=== PATIENT | male | born 1955 | race Caucasian/White ===

== ENCOUNTER 2018-06-29 00:56 | Inpatient (IN) ==
[2018-06-29 01:13] LABS: Basophils % 0.1 % (0.1-2.0); Eosinophils # 0.1 K/mm3 (0.0-0.4); Eosinophils % 0.9 % (0.1-12.0); Hematocrit 40.2 % (42.0-52.0); Hemoglobin 13.1 g/dL (14.1-18.0); Lymphocytes # 0.9 K/mm3 (0.7-4.5); Lymphocytes % 6.7 % (10-50); Mean Corpuscular HGB Conc 32.5 g/dL (31.8-35.4); Mean Corpuscular Hemoglobin 29.5 pg (27.0-31.2); Mean Corpuscular Volume 90.8 fl (80-94); Mean Platelet Volume 7.2 fl (7.4-10.4); Monocytes # 0.8 K/mm3 (0.1-1.0); Monocytes % 5.9 % (1.7-9.3); Neutrophils # 12.2 K/mm3 (1.8-7.8); Neutrophils % 86.4 % (37.0-80.0); Platelet Count 211 K/mm3 (142-424); Red Blood Count 4.43 M/mm3 (4.60-6.20); Red Cell Distribution Width 14.4 % (11.5-17.5); White Blood Count 14.1 K/mm3 (4.8-10.8)
[2018-06-29 01:28] LABS: Microscopic, Urine URINE MICROSCOPIC (MICROSCOPIC)
[2018-06-29 01:28] LABS: Albumin Level 2.9 gm/dL (3.4-5.0); Albumin/Globulin Ratio 0.7 (1.1-1.8); Anion Gap 12.4 mEq/L (5-15); Bilirubin,Total 0.5 mg/dL (0.2-1.0); Calcium 8.8 mg/dL (8.5-10.1); Potassium 3.4 mmoL/L (3.5-5.1); Total Protein,Serum 6.9 gm/dL (6.4-8.2)
[2018-06-29 01:29] LABS: Appearance,Urine CLEAR (Clear); Bilirubin,Urine Negative (Negative); Blood, Urine Negative (Negative); Color,Urine YELLOW (Yellow); Glucose,Urine (UA) Negative (Negative); Ketones,Urine TRACE (Negative); Leukocyte Esterase,Urine Negative (Negative); Protein,Urine 1+ (Negative); Specific Gravity, Urine 1.015 (1.005-1.030)
[2018-06-29 01:48] LABS: Bacteria,Urine 1+ /lpf; Mucus,Urine 1+ /lpf
[2018-06-29 02:21] LABS: Lymphocytes % 8 % (10-50); Monocytes % 2 % (2-9); Neutrophils % 89 % (42-76); Stomatocytes 1+; Total Cells Counted 100
--- NOTE | 2018-06-29 03:11 | Emergency Department Note ---
ED Disposition Clinical Impression: Low body mass index (BMI) Community acquired pneumonia Qualifiers: Laterality: unspecified laterality Qualified Code(s): J18.9 - Pneumonia, unspecified organism Schizophrenia Qualifiers: Schizophrenia type: unspecified Qualified Code(s): F20.9 - Schizophrenia, unspecified Disposition: Admitted as Observation Condition on Discharge: Good Referrals: Provider,Referral, [Primary Care Provider] - - Critical Care Critical Care Time: No Attestation: On 06/29/18, the high probability of a clinically significant, sudden or life threatening deterioration of the following system(s) required my full and direct attention, intervention and personal management. The time I documented below is in addition to time spent performing reported procedures but includes the following listed in this critical care notation. Medical Decision Making - Medical Records Medical records reviewed: Yes: I reviewed the patient's medical records. - [place] Inquiry Pt receiving controlled substance: No Vital Signs: 06/29/18 00:56 06/29/18 01:26 06/29/18 01:53 Temperature 103.4 F H 102.4 F H Temperature Source Rectal Rectal Pulse Rate Pulse Rate [Right Brachial] 119 H 119 H 113 H Respiratory Rate 18 17 Blood Pressure [Right Arm] 131/58 L 129/78 129/72 Blood Pressure Mean [Right Arm] 82 95 91 02 Sat by Pulse Oximetry 92 L 92 L 98 Oxygen Delivery Method Room Air Room Air Room Air 06/29/18 02:00 06/29/18 02:02 06/29/18 02:30 Temperature 102.7 F H Temperature Source Rectal Pulse Rate 112 H Pulse Rate [Right Brachial] 109 H 109 H Respiratory Rate 18 Blood Pressure [Right Arm] 122/69 122/85 Blood Pressure Mean [Right Arm] 86 97 02 Sat by Pulse Oximetry 98 90 L Oxygen Delivery Method Room Air Room Air - Lab Data Lab results reviewed: Yes: I reviewed the patient's lab results. Lab Results 06/29/18 01:05: WBC 14.1 H, RBC 4.43 L, Hgb 13.1 L, Hct 40.2 L, MCV 90.8, MCH 29.5, MCHC 32.5, RDW 14.4, Plt Count 211, MPV 7.2 L, Neut % (Auto) 86.4 H, Lymph % (Auto) 6.7 L, [place] % (Auto) 5.9, Eos % (Auto) 0.9, Baso % (Auto) 0.1, Neut # (Auto) 12.2 H, Lymph # (Auto) 0.9, [place] # (Auto) 0.8, Eos # (Auto) 0.1, Baso # (Auto) 0.0, Total Counted 100, Neutrophils % (Manual) 89 H, Lymphocytes % (Manual) 8 L, Monocytes % (Manual) 2, Basophils % (Manual) 1.0, Platelet Estimate Normal, Stomatocytes 1+ 06/29/18 01:05: Sodium 133 L, Potassium 3.4 L, Chloride 98, Carbon Dioxide 26, Anion Gap 12.4, BUN 12, Creatinine 1.30, Estimated Creat Clear 49, Estimated GFR 56 L, Est GFR ( Amer) 67, Glucose 158 H, Calcium 8.8, Total Bilirubin 0.5, AST 11 L, ALT 29, Alkaline Phosphatase 72, Total Protein 6.9, Albumin 2.9 L , Globulin 4.0 H, Albumin/Globulin Ratio 0.7 L 06/29/18 01:05: Lactate 1.1 06/29/18 01:05: Influenza Type A Ag Negative, Influenza Type B Ag Negative 06/29/18 01:17: Urine Color Yellow, Urine Appearance Clear, Urine pH 7.0, Ur Specific [place] 1.015, Urine Protein 1+, Urine Glucose (UA) Negative, Urine Ketones Trace, Urine Blood Negative, Urine Nitrate Negative, Urine Bilirubin Negative, Urine Urobilinogen 4.0, Ur Leukocyte Esterase Negative, Urine RBC 3-5, Urine WBC 3-5, Ur Squamous Epith Cells 3-5, Urine Bacteria 1+, Urine Mucus 1+ Result diagrams: 06/29/18 01:05 06/29/18 01:05 Orders (Tests/Meds): ED MEDICATIONS Generic Name Dose Route Start Last Admin Trade Name Freq PRN Reason Stop Dose Admin Sodium Chloride 1,000 mls @ 999 mls/hr 06/29/18 01:00 06/29/18 01:02 Sod Chlor 0.9% 1000ml Bag IV 06/29/18 02:00 999 mls/hr .Q1H1M HUNTER Administration Ceftriaxone Sodium 1 gm/ 50 mls @ 100 mls/hr 06/29/18 02:45 06/29/18 02:57 Sodium Chloride IV 07/13/18 02:44 100 mls/hr Q24H HUNTER Administration Protocol Azithromycin 500 mg/ Sodium 250 mls @ 250 mls/hr 06/29/18 02:45 06/29/18 02:56 Chloride IV 07/13/18 02:44 250 mls/hr Q24H HUNTER Administration Protocol Sodium Chloride 10 ml 06/29/18 00:57 Saline Flush 10ml Syringe IV 07/29/18 00:56 NEEDED PRN Maintain IV Site Sodium Chloride 3 ml 06/29/18 01:31 Sodium Chloride 3% 15ml [facility] 07/29/18 01:30 ONCE PRN INDUCE [employer] Discontinued Medications Generic Name Dose Route Start Last Admin Trade Name Freq PRN Reason Stop Dose Admin Acetaminophen 1,000 mg 06/29/18 00:59 06/29/18 01:02 Tylenol 500mg Tablet PO 06/29/18 01:00 1,000 mg ONCE ONE Administration Albuterol/Ipratropium 3 ml 06/29/18 01:43 06/29/18 01:52 Duoneb 3ml [facility] 06/29/18 01:44 3 ml ONCE ONE Administration Methylprednisolone Sodium Succinate 125 mg 06/29/18 01:01 06/29/18 01:12 Solu-Medrol 125mg/2ml Vial IV 06/29/18 01:02 125 mg ONCE ONE Administration ORDERS Category Date Time Status XR chest portable Stat Exams 06/29/18 01:01 Taken Urinalysis and Microscopic Stat Lab 06/29/18 01:17 Ordered Blood Culture Stat Micro 06/29/18 01:05 Received Sputum Culture & Gram Stain Stat Micro 06/29/18 01:31 Ordered ECG Request by /Nse Stat Y 06/29/18 00:57 Ordered - Radiology Data #1 Image(s): Chest Image Reviewed: Yes I reviewed the patient's radiology image Preliminary Findings: Abnormal (bilat inflitrates ) - ECG Data Tracing #1 Arrhythmias present: sinus tach Ischemic changes: non-specific ST-T wave changes ECG compared to prior tracings: this ECG reveals significant changes Resp/SOB HPI - General Chief Complaint: Shortness of Breath/Dyspnea Stated Complaint: shortness of breath Time Seen by Provider: 06/29/18 01:15 Mode of Arrival: EMS Source of Information: Patient, EMS, Medical Record Limitations: Altered Mental Status Description of Symptoms (Recalled from ER Triage Doc. by RN): Sent over from [facility] for cough, fever, and shortness of breath. Pt mental status is at baseline, significant hx of psychiatric problems, pt is unclear about his complaints, but does present with fever, and cough. - History of Present Illness pt sent from half-way with sob and change in mental status with dizzyness and altered vital signs Complaint: shortness of breath, cough Onset (ago): hour(s) Severity: moderate Associated symptoms: denies other symptoms Treatment prior to arrival: none - Related Data Home oxygen amount: none Home Medications Medication Instructions Recorded Confirmed Divalproex Sodium 250 mg PO BID 05/22/18 06/29/18 Divalproex Sodium 500 mg PO BID 05/22/18 06/29/18 Tamsulosin HCl [Flomax 0.4mg 0.4 mg PO HS 05/22/18 06/29/18 capsule] cloZAPine [Clozapine] 200 mg PO HS 05/22/18 06/29/18 cloZAPine [Clozaril] 100 mg PO HS 05/22/18 06/29/18 Allergies Allergy/AdvReac Type Severity Reaction Status Date / Time No Known Allergies Allergy Verified 05/22/18 11:07 [facility] History - Hepatitis A Screen Drug use history?: No High risk sexual behaviors?: No History of sexually transmitted infection?: No Currently employed?: No Childcare worker?: No Do you have indoor plumbing?: Yes Do you have electricity?: Yes Attestation statement:: This patient has been screened for Hepatitis A risk factors. I have reviewed the patient's past medical history: Yes Medical History: Denies:: Cancer, Diabetes Mellitus Type 1, Diabetes Mellitus Type 2, MRSA Amputation: No Fractures: No - Social History Smoking Status: Current every day smoker Tobacco Type: cigarettes # Packs/Day (cigarettes): 1 Alcohol Intake: never Substance Use Type: crack/cocaine - Psychiatric History Expresses thoughts of harming self/others: None Suicide Plan Description: No Plan ROS Obtained: Yes All systems reviewed & no additional complaints - Constitutional Constitutional: Reports fever(s), Reports weakness - Eyes Eyes: Denies change in vision - ENT Ears, Nose, Mouth, and Throat: Denies sore throat - Cardiovascular Cardiovascular: Denies chest pain - Respiratory Respiratory: No change in phlegm color, Yes cough, No coughing up blood - Gastrointestinal Gastrointestingal: Denies: abdominal pain - Genitourinary Male Genitourinary: Denies hematuria - Musculoskeletal Musculoskeletal: Denies joint pain, Denies limited range of motion - Integumentary/Breasts Skin/Breast: Denies rash - Neurologic Neurologic: Denies abnormal speech, Reports confusion, Denies convulsions, Denies seizure-like activity Physical Exam - General General appearance: alert, in no apparent distress - Head Head exam: atraumatic - Eye Eye exam: Present: PERRL, EOMI. Absent: scleral icterus - ENT ENT exam: Present: mucous membranes dry - Neck Neck exam: Present: trachea midline - Respiratory Respiratory exam: Present: other (bilat rhonchi ). Absent: respiratory distress - Cardiovascular Cardiovascular exam: Present: regular rate, systolic murmur, +S4 - Abdominal Exam Abdominal exam: Present: soft - Extremities Exam Extremities exam: Present: full ROM. Absent: tenderness - Neurological Exam Neurological exam: Present: alert, CN II-XII intact - Psychiatric Psychiatric exam: Present: anxious - Skin Skin exam: Absent: rash
[2018-06-29 03:37] LABS: Valproic Acid, (Depakene) 76.8 ug/mL (50-100)
[2018-06-29 06:30] LABS: Eosinophils % 0.1 % (0.1-12.0); Hematocrit 38.2 % (42.0-52.0); Hemoglobin 12.4 g/dL (14.1-18.0); Lymphocytes # 0.4 K/mm3 (0.7-4.5); Lymphocytes % 3.2 % (10-50); Mean Corpuscular HGB Conc 32.3 g/dL (31.8-35.4); Mean Corpuscular Hemoglobin 29.8 pg (27.0-31.2); Mean Corpuscular Volume 92.1 fl (80-94); Mean Platelet Volume 7.4 fl (7.4-10.4); Monocytes # 0.2 K/mm3 (0.1-1.0); Monocytes % 1.6 % (1.7-9.3); Neutrophils # 10.3 K/mm3 (1.8-7.8); Platelet Count 189 K/mm3 (142-424); Red Blood Count 4.15 M/mm3 (4.60-6.20); Red Cell Distribution Width 14.2 % (11.5-17.5); White Blood Count 10.9 K/mm3 (4.8-10.8)
[2018-06-29 07:09] LABS: Anion Gap 11.5 mEq/L (5-15); Blood Urea Nitrogen 9 mg/dL (7-18); Calcium 8.1 mg/dL (8.5-10.1); Carbon Dioxide 25 mmol/L (21.0-32.0); Chloride 104 mmol/L (98-107); Glucose 165 mg/dL (74-106); Potassium 3.5 mmoL/L (3.5-5.1); Sodium 137 mmol/L (136-145)
--- NOTE | 2018-06-29 07:36 | Pharmacy Consult Notes ---
[facility] Pharmacy VTE Monitoring - Patient Demographics Admission date: 06/29/18 Report Date: 06/29/18 Time: 07:35 Allergies/Adverse Reactions: Patient Allergies No Known Allergies Allergy (Verified 06/29/18 04:24) Height: 1.83 m Weight: 58.967 kg Patient Problems: Current Active Problems Schizophrenia (Acute) Community acquired pneumonia (Acute) Low body mass index (BMI) (Acute) - VTE Risk Labs: VTE Related Lab Results Hgb 12.4 g/dL (14.1-18.0) L 06/29/18 06:00 Hct 38.2 % (42.0-52.0) L 06/29/18 06:00 Plt Count 189 K/mm3 (142-424) 06/29/18 06:00 BUN 9 mg/dL (7-18) 06/29/18 06:00 Creatinine 1.02 mg/dL (0.70-1.30) D 06/29/18 06:00 Estimated Creat Clear 62 mL/min (50-200) 06/29/18 06:00 Was VTE Risk Assessment Performed: Yes VTE Score: 2 VTE Risk Level: Low Risk - Prophylaxis VTE Prophylaxis Ordered?: Yes Types of VTE Prophylaxis: TEDS Knee High Location of Applied Device: Bilateral Lower Extremeties - VTE Diagnosis Confirmed Treatment or plan recommended: Continue Current Treatment
--- NOTE | 2018-06-29 08:11 | Consult Report ---
Addendum entered and electronically signed by ROSANNA Lakhani 06/29/18 13:28: Echo shows normal LVEF without evidence of significant hypertrophy or valve disease. If patient is kept overnight, then could obtain stress myoview tomorrow. If patient is discharged, then recommend stress myoview as outpatient. Original Note: History of Present Illness Consult date: 06/29/18 Requesting physician: Olman Pascual Consult reason: shortness of breath Chief complaint: Dizziness, weakness Additional Medical History:: 1. Tobacco use since age 27, greater than 1 pack/day 2. History of alcohol abuse discontinued 8 years ago 3. Reported history of schizophrenia History of present illness: 62-year-old white male with history of tobacco use, schizophrenia and remote alcohol abuse was admitted for weakness and dizziness. Patient is difficult historian. He denies chest pain, nausea, vomiting or diarrhea. Patient was evaluated in the emergency department noted to have elevated white count with possible right side infiltrate on chest x-ray. Admit for possible pneumonia. Cardiology consulted for evaluation. Patient's troponins have returned normal overnight. Patient has a markedly abnormal EKG with ST-T abnormalities inferior and laterally that are similar to previous tracings. Patient denies any history of cardiac problems, diabetes or family history of heart disease. [facility] History Medical History: Denies:: Cancer, Diabetes Mellitus Type 1, Diabetes Mellitus Type 2, MRSA Have you ever received a pneumonia vaccine?: No Have you received a flu vaccine this season?: No Amputation: No Fractures: No - *Social History Smoking Status: Current every day smoker Tobacco Type: cigarettes # Packs/Day (cigarettes): 1 Alcohol Intake: never Substance Use Type: crack/cocaine Occupational Status: disabled Housing: other Household Members: other Travel in the last 8 weeks: None - Psychiatric History Expresses thoughts of harming self/others: None Suicide Plan Description: No Plan Meds Home Medications Medication Instructions Recorded Confirmed Type Divalproex Sodium 250 mg PO BID 05/22/18 06/29/18 History Divalproex Sodium 500 mg PO BID 05/22/18 06/29/18 History Tamsulosin HCl [Flomax 0.4mg 0.4 mg PO HS 05/22/18 06/29/18 History capsule] cloZAPine [Clozapine] 200 mg PO HS 05/22/18 06/29/18 History cloZAPine [Clozaril] 100 mg PO HS 05/22/18 06/29/18 History Allergies Allergy/AdvReac Type Severity Reaction Status Date / Time No Known Allergies Allergy Verified 06/29/18 04:24 Review of Systems - *Cardiovascular Denies chest pain, Denies chest pain with activity - *Respiratory Reports cough, Reports shortness of breath with activity - *Gastrointestinal Denies abdominal pain, Denies loose stools, Denies nausea - *Genitourinary Denies blood in urine - *Musculoskeletal Denies back pain - *Neurologic Reports confusion, Reports weakness, Denies abnormal speech, Denies seizure-like activity, Denies seizure-like activity Exam Vital signs and Labs for Last 24 Hours: Temp Pulse Resp BP Pulse Ox 98.1 F 95 H 26 H 108/63 L 90 L 06/29/18 04:32 06/29/18 06:00 06/29/18 04:32 06/29/18 04:32 06/29/18 06:00 Laboratory Results - last 24 hr 06/29/18 01:00: Troponin I < 0.02, Total Valproic Acid 76.8 06/29/18 01:05: WBC 14.1 H, RBC 4.43 L, Hgb 13.1 L, Hct 40.2 L, MCV 90.8, MCH 29.5, MCHC 32.5, RDW 14.4, Plt Count 211, MPV 7.2 L, Neut % (Auto) 86.4 H, Lymph % (Auto) 6.7 L, [place] % (Auto) 5.9, Eos % (Auto) 0.9, Baso % (Auto) 0.1, Neut # (Auto) 12.2 H, Lymph # (Auto) 0.9, [place] # (Auto) 0.8, Eos # (Auto) 0.1, Baso # (Auto) 0.0, Total Counted 100, Neutrophils % (Manual) 89 H, Lymphocytes % (Manual) 8 L, Monocytes % (Manual) 2, Basophils % (Manual) 1.0, Platelet Estimate Normal, Stomatocytes 1+ 06/29/18 01:05: Sodium 133 L, Potassium 3.4 L, Chloride 98, Carbon Dioxide 26, Anion Gap 12.4, BUN 12, Creatinine 1.30, Estimated Creat Clear 49, Estimated GFR 56 L, Est GFR ( Amer) 67, Glucose 158 H, Calcium 8.8, Total Bilirubin 0.5, AST 11 L, ALT 29, Alkaline Phosphatase 72, Total Protein 6.9, Albumin 2.9 L , Globulin 4.0 H, Albumin/Globulin Ratio 0.7 L 06/29/18 01:05: Lactate 1.1 06/29/18 01:05: Influenza Type A Ag Negative, Influenza Type B Ag Negative 06/29/18 01:17: Urine Color Yellow, Urine Appearance Clear, Urine pH 7.0, Ur Specific [place] 1.015, Urine Protein 1+, Urine Glucose (UA) Negative, Urine Ketones Trace, Urine Blood Negative, Urine Nitrate Negative, Urine Bilirubin Negative, Urine Urobilinogen 4.0, Ur Leukocyte Esterase Negative, Urine RBC 3-5, Urine WBC 3-5, Ur Squamous Epith Cells 3-5, Urine Bacteria 1+, Urine Mucus 1+ 06/29/18 06:00: WBC 10.9 H, RBC 4.15 L, Hgb 12.4 L, Hct 38.2 L, MCV 92.1, MCH 29.8, MCHC 32.3, RDW 14.2, Plt Count 189, MPV 7.4, Neut % (Auto) 95.0 H, Lymph % (Auto) 3.2 L, [place] % (Auto) 1.6 L, Eos % (Auto) 0.1, Baso % (Auto) 0.0 L, Neut # (Auto) 10.3 H, Lymph # (Auto) 0.4 L, [place] # (Auto) 0.2, Eos # (Auto) 0.0, Baso # (Auto) 0.0 06/29/18 06:00: Sodium 137, Potassium 3.5, Chloride 104, Carbon Dioxide 25, Anion Gap 11.5, BUN 9, Creatinine 1.02 D, Estimated Creat Clear 62, Estimated GFR 74, Est GFR ( Amer) 89 D, Glucose 165 H, Calcium 8.1 L, Troponin I < 0.02 I & O for Last 24 hours: Intake & Output 06/26/18 06/27/18 06/28/18 06/29/18 11:59 11:59 11:59 11:59 Intake Total 2109 Balance 2109 Weight 130 lb - *Routine Neck Exam Present: supple. Absent: JVD, carotid bruit - *Routine Respiratory Exam Present: rales, rhonchi. Absent: accessory muscle use, wheezes - *Routine Cardiovascular Exam Present: RRR. Absent: murmur, gallop, rubs - *Routine Abdominal Exam Present: soft. Absent: tenderness, distended, guarding - *Routine Extremities Exam Absent: edema, calf tenderness - *Routine Neurological Exam Present: alert, oriented X3, moving all extremities Assessment and Plan (1) Dizziness Current visit: No Status: Acute Category: Medical Code(s): R42 - Dizziness and giddiness (2) Weakness Current visit: Yes Status: Acute Category: Medical Code(s): R53.1 - Weakness (3) Tobacco use disorder, continuous Current visit: Yes Status: Acute Category: Medical Code(s): F17.209 - Nicotine dependence, unspecified, with unspecified nicotine-induced disorders (4) Abnormal EKG Current visit: Yes Status: Acute Category: Medical Code(s): R94.31 - Abnormal electrocardiogram [ECG] [EKG] (5) Community acquired pneumonia Current visit: Yes Status: Acute Qualifiers: Laterality: unspecified laterality Qualified Code(s): J18.9 - Pneumonia, unspecified organism Category: Medical Code(s): J18.9 - Pneumonia, unspecified organism (6) Schizophrenia Current visit: Yes Status: Acute Qualifiers: Schizophrenia type: unspecified Qualified Code(s): F20.9 - Schizophrenia, unspecified Category: Medical Code(s): F20.9 - Schizophrenia, unspecified (7) Anemia Current visit: Yes Status: Acute Category: Medical Code(s): D64.9 - Anemia, unspecified - Assessment and plan all Dx Assessment and Plan for all problems:: 1. Will obtain an echocardiogram to evaluate left ventricular size and function. If normal then patient could be discharged later today.
--- NOTE | 2018-06-29 09:00 | History & Physical Report ---
*Admission Date: 06/29/18 *Chief complaint: son *History of present illness: 62-year-old male with history of tobacco use, schizophrenia.Pt arrived by ems to ed with c/o hurting all over,weakness and dizziness. Admit for possible pneumonia. Cardiology consulted for evaluation. Patient's troponins have retu rned normal overnight. Patient has a markedly abnormal EKG. Patient denies any history of cardiac problems, diabetes or family history of heart disease. [facility] History I have reviewed the patient's past medical history: Yes Medical History: Denies:: Cancer, Diabetes Mellitus Type 1, Diabetes Mellitus Type 2, MRSA Have you ever received a pneumonia vaccine?: No Have you received a flu vaccine this season?: No Amputation: No Fractures: No - *Social History Smoking Status: Current every day smoker Tobacco Type: cigarettes # Packs/Day (cigarettes): 1 Alcohol Intake: never Substance Use Type: crack/cocaine Occupational Status: disabled Housing: other Household Members: other Travel in the last 8 weeks: None - Psychiatric History Expresses thoughts of harming self/others: None Suicide Plan Description: No Plan Review of Systems - Constitutional Reports body ache(s), Reports fever(s) - Eyes Denies change in vision - ENT Denies change in voice - *Cardiovascular Reports shortness of breath - *Respiratory Denies chest congestion - *Gastrointestinal Denies nausea, Denies vomiting - *Genitourinary Denies painful urination - *Musculoskeletal Denies decreased muscle mass - Integumentary/Breasts Denies rash - *Neurologic Reports confusion, Reports weakness, Denies abnormal speech, Denies seizure-like activity, Denies seizure-like activity - Psychiatric Denies anxiety - Endocrine Denies flushing - Hematologic/Lymphatic Denies enlarged lymph nodes - Allergic/Immunologic Denies lip swelling Meds Home Medications Medication Instructions Recorded Confirmed Type Divalproex Sodium 250 mg PO BID 05/22/18 06/29/18 History Divalproex Sodium 500 mg PO BID 05/22/18 06/29/18 History Tamsulosin HCl [Flomax 0.4mg 0.4 mg PO HS 05/22/18 06/29/18 History capsule] cloZAPine [Clozapine] 400 mg PO HS 05/22/18 06/29/18 History cloZAPine [Clozaril] 100 mg PO HS 05/22/18 06/29/18 History Docusate Sodium [Docusate Sodium 100 mg PO BID 06/29/18 06/29/18 History 100mg Cap] Allergies Allergy/AdvReac Type Severity Reaction Status Date / Time No Known Allergies Allergy Verified 06/29/18 04:24 Exam Vital signs and Labs for Last 24 Hours: Temp Pulse Resp BP Pulse Ox 98.1 F 95 H 26 H 108/63 L 90 L 06/29/18 04:32 06/29/18 06:00 06/29/18 04:32 06/29/18 04:32 06/29/18 06:00 Laboratory Results - last 24 hr 06/29/18 01:00: Troponin I < 0.02, Total Valproic Acid 76.8 06/29/18 01:05: WBC 14.1 H, RBC 4.43 L, Hgb 13.1 L, Hct 40.2 L, MCV 90.8, MCH 2 9.5, MCHC 32.5, RDW 14.4, Plt Count 211, MPV 7.2 L, Neut % (Auto) 86.4 H, Lymph % (Auto) 6.7 L, [place] % (Auto) 5.9, Eos % (Auto) 0.9, Baso % (Auto) 0.1, Neut # (Auto) 12.2 H, Lymph # (Auto) 0.9, [place] # (Auto) 0.8, Eos # (Auto) 0.1, Baso # (Auto) 0.0, Total Counted 100, Neutrophils % (Manual) 89 H, Lymphocytes % (Manual) 8 L, Monocytes % (Manual) 2, Basophils % (Manual) 1.0, Platelet Estimate Normal, Stomatocytes 1+ 06/29/18 01:05: Sodium 133 L, Potassium 3.4 L, Chloride 98, Carbon Dioxide 26, Anion Gap 12.4, BUN 12, Creatinine 1.30, Estimated Creat Clear 49, Estimated GFR 56 L, Est GFR ( Amer) 67, Glucose 158 H, Calcium 8.8, Total Bilirubin 0.5, AST 11 L, ALT 29, Alkaline Phosphatase 72, Total Protein 6.9, Albumin 2.9 L , Globulin 4.0 H, Albumin/Globulin Ratio 0.7 L 06/29/18 01:05: Lactate 1.1 06/29/18 01:05: Influenza Type A Ag Negative, Influenza Type B Ag Negative 06/29/18 01:17: Urine Color Yellow, Urine Appearance Clear, Urine pH 7.0, Ur Specific [place] 1.015, Urine Protein 1+, Urine Glucose (UA) Negative, Urine Ketones Trace, Urine Blood Negative, Urine Nitrate Negative, Urine Bilirubin Negative, Urine Urobilinogen 4.0, Ur Leukocyte Esterase Negative, Urine RBC 3-5, Urine WBC 3-5, Ur Squamous Epith Cells 3-5, Urine Bacteria 1+, Urine Mucus 1+ 06/29/18 06:00: WBC 10.9 H, RBC 4.15 L, Hgb 12.4 L, Hct 38.2 L, MCV 92.1, MCH 29.8, MCHC 32.3, RDW 14.2, Plt Count 189, MPV 7.4, Neut % (Auto) 95.0 H, Lymph % (Auto) 3.2 L, [place] % (Auto) 1.6 L, Eos % (Auto) 0.1, Baso % (Auto) 0.0 L, Neut # (Auto) 10.3 H, Lymph # (Auto) 0.4 L, [place] # (Auto) 0.2, Eos # (Auto) 0.0, Baso # (Auto) 0.0 06/29/18 06:00: Sodium 137, Potassium 3.5, Chloride 104, Carbon Dioxide 25, Anion Gap 11.5, BUN 9, Creatinine 1.02 D, Estimated Creat Clear 62, Estimated GFR 74, Est GFR ( Amer) 89 D, Glucose 165 H, Calcium 8.1 L, Troponin I < 0.02 I & O for Last 24 hours: Intake & Output 06/26/18 06/27/18 06/28/18 06/29/18 11:59 11:59 11:59 11:59 Intake Total 2350 / 2350 Balance 2350 / 2350 Weight 130 lb - *Routine HEENT Exam Head: Present: normocephalic Eye: Present: PERRL ENT: Present: mucous membranes moist - *Routine Neck Exam Present: supple. Absent: lymphadenopathy - *Routine Respiratory Exam Present: rhonchi, wheezes, diminished air movement - *Routine Cardiovascular Exam Present: RRR - *Routine Abdominal Exam Present: soft, normoactive bowel sounds. Absent: tenderness - *Routine Extremities Exam Present: full ROM. Absent: cyanosis, clubbing, edema - *Routine Skin Exam Present: warm. Absent: rash - *Routine Neurological Exam Present: alert, oriented X3 - Routine Psychiatric Exam Present: normal affect Assessment and Plan (1) Dizziness Current visit: No Status: Acute Category: Medical Code(s): R42 - Dizziness and giddiness (2) Weakness Current visit: Yes Status: Acute Category: Medical Code(s): R53.1 - Weakness (3) Tobacco use disorder, continuous Current visit: Yes Status: Acute Category: Medical Code(s): F17.209 - Nicotine dependence, unspecified, with unspecified nicotine-induced disorders (4) Abnormal EKG Current visit: Yes Status: Acute Category: Medical Code(s): R94.31 - Abnormal electrocardiogram [ECG] [EKG] (5) Community acquired pneumonia Current visit: Yes Status: Acute Qualifiers: Laterality: unspecified laterality Qualified Code(s): J18.9 - Pneumonia, unspecified organism Category: Medical Code(s): J18.9 - Pneumonia, unspecified organism (6) Schizophrenia Current visit: Yes Status: Acute Qualifiers: Schizophrenia type: unspecified Qualified Code(s): F20.9 - Schizophrenia, unspecified Category: Medical Code(s): F20.9 - Schizophrenia, unspecified (7) Anemia Current visit: Yes Status: Acute Category: Medical Code(s): D64.9 - Ane мария, unspecified - Assessment and plan all Dx Assessment and Plan for all problems:: Rounded with Dr. Pascual all orders per Samara Echo Out of bed Wean off O2
--- NOTE | 2018-06-30 05:37 | Cardiology Report ---
PROCEDURE: 2-D M-mode and color Doppler study INDICATIONS FOR THE TEST: Chest pain COPD Heart Murmur+ Tobacco Smoking+ Palpitations Fatigue Syncope Edema Hypertension Diabetes Mellitus Rheumatic Fever SOB+GONZALEZ Obesity Hyperlipidemia Family History HD Additional History CRACK/COCAINE PATIENT INFORMATION HEIGHT: 72 WEIGHT:130 GENDER: Male B/P:129/72 2-D/M-MODE INTERPRETATION: 2-D MEASUREMENTS OBSERVED VALUES IN CMS Right Ventricular Dimension (RVDd) 2.4 Interventricular Septum (Thickness)(IVsd) 1.0 Left Ventricular Internal Dimensions(LVIDd) 4.8 Left Ventricular Posterior Wall (Thickness)(LVPWd) 0.8 Aortic Root 3.0 Aortic Cusp Separation 1.8 Left Atrial Dimensions (LAD) 3.5 2D 1. Left atrium is a mildly enlarged, left ventricle is normal size, there is mild qualitative concentric left ventricular hypertrophy, visually estimated ejection fraction 55% with no regional wall motion abnormality. 2. The right atrium and right ventricle are normal size and contractility. 3. The aortic valve is minimally thickened and fibrosed. 4. The mitral and tricuspid valvular grossly normal. 5. The pulmonic valve is poorly present. 6. No significant pericardial effusion noted. DOPPLER INTERROGATION: Doppler interrogation of the aortic, mitral and tricuspid valvular presence of mild mitral and tricuspid regurgitation, tricuspid regurgitation jet velocity is inadequate for calculation of the right ventricular systolic pressure, grade 1 diastolic dysfunction seen with tissue Doppler evidence of raised left atrial pressure. CONCLUSION: 1. Mildly enlarged left atrium, normal left ventricular size, mild concentric left ventricular hypertrophy, visually estimated ejection fraction 55% with no regional wall motion abnormality, grade 1 diastolic dysfunction seen with tissue Doppler evidence of raised left atrial pressure. 2. Mild mitral and tricuspid regurgitation 3. No significant pericardial effusion noted.
[2018-06-30 07:14] LABS: Albumin Level 2.5 gm/dL (3.4-5.0); Albumin/Globulin Ratio 0.6 (1.1-1.8); Anion Gap 16.3 mEq/L (5-15); Bilirubin,Total 0.3 mg/dL (0.2-1.0); Calcium 8.9 mg/dL (8.5-10.1); Globulin 3.9 gm/dl (1.3-3.2); Potassium 3.3 mmoL/L (3.5-5.1); Total Protein,Serum 6.4 gm/dL (6.4-8.2)
[2018-06-30 07:20] LABS: Eosinophils % 0.1 % (0.1-12.0); Hematocrit 40.5 % (42.0-52.0); Hemoglobin 12.7 g/dL (14.1-18.0); Lymphocytes # 0.9 K/mm3 (0.7-4.5); Lymphocytes % 3.9 % (10-50); Mean Corpuscular HGB Conc 31.3 g/dL (31.8-35.4); Mean Corpuscular Hemoglobin 29.7 pg (27.0-31.2); Mean Corpuscular Volume 94.7 fl (80-94); Mean Platelet Volume 7.9 fl (7.4-10.4); Monocytes # 0.7 K/mm3 (0.1-1.0); Monocytes % 3.1 % (1.7-9.3); Neutrophils # 21.3 K/mm3 (1.8-7.8); Neutrophils % 92.8 % (37.0-80.0); Platelet Count 258 K/mm3 (142-424); Red Blood Count 4.28 M/mm3 (4.60-6.20); Red Cell Distribution Width 14.2 % (11.5-17.5)
[2018-06-30 07:28] LABS: White Blood Count 22.7 K/mm3 (4.8-10.8)
[2018-06-30 11:07] LABS: Lymphocytes % 4 % (10-50); Monocytes % 2 % (2-9); Neutrophils % 90 % (42-76); Total Cells Counted 100
[2018-06-30 11:09] LABS: RBC Morphology Normal
--- NOTE | 2018-06-30 12:11 | Progress Note ---
Subjective Date: 06/30/18 Time: 12:08 Principal diagnosis: SOB Interval history: This is a 62-year-old white male who presented to the emergency department with complaints of shortness of breath. The patient was diagnosed with pneumonia and is currently being treated for this. While hospitalized the patient did have an abnormal and underwent stress testing this morning. His stress test was high risk abnormal. He had a large anterior reversible defect. There was also an inferior defect consistent with diaphragm attenuation. His ejection fraction was 73%. The patient reports still having some intermittent shortness of breath and feeling like he is congested in his chest. He states that his chest feels full. He denies chest pain. There is no radiation of the pain. He states that this is with rest and exertion and is fairly constant. He denies any fevers or chills. He denies any edema nausea vomiting diarrhea PND or orthopnea. He states that his shortness of breath was pretty severe before coming into the hospital. He denies any history of heart disease. Exam Vital signs and Labs for Last 24 Hours: Temp Pulse Resp BP Pulse Ox 98.0 F 83 17 114/64 96 06/30/18 11:15 06/30/18 11:15 06/30/18 11:15 06/30/18 11:15 06/30/18 11:15 Laboratory Results - last 24 hr 06/30/18 05:55: WBC 22.7 H* D, RBC 4.28 L, Hgb 12.7 L, Hct 40.5 L, MCV 94.7 H, MCH 29.7, MCHC 31.3 L, RDW 14.2, Plt Count 258 D, MPV 7.9, Neut % (Auto) 92.8 H , Lymph % (Auto) 3.9 L, [place] % (Auto) 3.1, Eos % (Auto) 0.1, Baso % (Auto) 0.0 L , Neut # (Auto) 21.3 H, Lymph # (Auto) 0.9, [place] # (Auto) 0.7, Eos # (Auto) 0.0, Baso # (Auto) 0.0, Total Counted 100, Neutrophils % (Manual) 90 H, Band Neutrophils % 4.0, Lymphocytes % (Manual) 4 L, Monocytes % (Manual) 2, Platelet Estimate Normal, RBC Morphology Normal 06/30/18 05:55: Sodium 142, Potassium 3.3 L, Chloride 105, Carbon Dioxide 24, Anion Gap 16.3 H, BUN 15 D, Creatinine 1.04, Estimated Creat Clear 68, Estimated GFR 72, Est GFR ( Amer) 87, Glucose 150 H, Calcium 8.9, Total Bilirubin 0.3, AST 7 L D, ALT 21 D, Alkaline Phosphatase 71, Total Protein 6.4, Albumin 2.5 L D, Globulin 3.9 H, Albumin/Globulin Ratio 0.6 L I & O for Last 24 hours: Intake & Output 06/27/18 06/28/18 06/29/18 06/30/18 23:59 23:59 23:59 23:59 Intake Total 2830 / 2830 2040 Balance 2830 / 2830 2040 Weight 130 lb 146 lb 9 oz Microbiology Reports for the Last 24 Hours: Microbiology 06/29/18 20:50 Sputum - Expectorated Sputum Gram Stain - Final Radiology Reports for the Last 24 Hours: His Myoview stress test shows a large anterior reversible defect. There is an inferior defect consistent with diaphragm attenuation. His ejection fraction is 73%. This is a high risk abnormal stress test. Narrative: Telemetry strip is sinus rhythm. - Constitutional no acute distress, average body habitus, cooperative - *Routine HEENT Exam Head: Present: normocephalic, atraumatic Eye: Present: EOMI, PERRL ENT: Present: mucous membranes moist - *Routine Neck Exam Present: supple, full ROM, normal carotid upstroke. Absent: JVD, carotid bruit, lymphadenopathy - *Routine Respiratory Exam Present: decreased breath sounds, wheezes (Expiratory) - *Routine Cardiovascular Exam Present: RRR, Normal S1, Normal S2. Absent: murmur, gallop, rubs - *Routine Abdominal Exam Present: soft, normoactive bowel sounds. Absent: tenderness, distended - *Routine Extremities Exam Present: full ROM, pulses intact. Absent: cyanosis, clubbing, edema - *Routine Skin Exam Present: intact, warm. Absent: erythema, rash - *Routine Neurological Exam Present: alert, oriented X3, CN II-XII intact Progress Note: A&P (1) Atypical angina Status: Acute Current Visit: Yes (2) Abnormal stress test Status: Acute Current Visit: Yes (3) Shortness of breath Status: Acute Current Visit: Yes (4) Dizziness Status: Acute Current Visit: No (5) Weakness Status: Acute Current Visit: Yes (6) Tobacco use disorder, continuous Status: Acute Current Visit: Yes (7) Abnormal EKG Status: Acute Current Visit: Yes (8) Community acquired pneumonia Status: Acute Current Visit: Yes (9) Schizophrenia Status: Acute Current Visit: Yes (10) Anemia Status: Acute Current Visit: Yes Assessment and Plan for All Diagnoses:: Plan: 1. The patient was admitted to the hospital with shortness of breath weakness and dizziness. He was diagnosed with pneumonia and is currently being treated for this by his primary care provider. 2. The patient had an abnormal EKG and underwent Myoview stress testing. The patient does have a high risk abnormal Myoview stress test. His shortness of breath is likely atypical angina. He does have a family history of ischemic heart disease in his father per the patient report. He is a smoker and does have a history of hypertension per his report. 3. Given his atypical angina and high risk abnormal Myoview stress test, we will plan to proceed with left cardiac catheterization with right radial access to evaluate for coronary artery disease. The patient has been educated on the risks and benefits of proceeding with left cardiac catheterization. Patient verbalizes understanding and is agreeable in proceeding with the procedure. 4. Patient will remain NPO in preparation for left cardiac catheterization. Pre medications prior to the procedure. 4. His blood pressure is well controlled. 5. His LDL goal is less than 100. We will get a lipid panel. 6. Tobacco cessation is highly advised and counseled. 7. Further recommendations will be made pending the patient's response to treatment following his left cardiac catheterization later today. Thank you for the opportunity help to spent in the care of this patient.
--- NOTE | 2018-06-30 13:22 | Discharge Summary ---
General - General Admission date:: 06/29/18 Discharge date: 06/30/18 HPI HPI: 62-year-old male with history of tobacco use, schizophrenia.Pt arrived by ems to ed with c/o hurting all over,weakness and dizziness. Admit for possible pneumonia. Cardiology consulted for evaluation. Patient's troponins have returned normal overnight. Patient has a markedly abnormal EKG. Patient denies any history of cardiac problems, diabetes or family history of heart disease. Hospital Course Hospital Course: pt did better with ivf and resp treatments and iv abx and steroids - [facility] use since age 27, greater than 1 pack/day 2. History of alcohol abuse discontinued 8 years ago 3. Reported history of schizophrenia History of present illness: 62-year-old white male with history of tobacco use, schizophrenia and remote alcohol abuse was admitted for weakness and dizziness. Patient is difficult historian. He denies chest pain, nausea, vomiting or diarrhea. Patient was evaluated in the emergency department noted to have elevated white count with possible right side infiltrate on chest x-ray. Admit for possible pneumonia. Cardiology consulted for evaluation. Patient's troponins have returned normal overnight. Patient has a markedly abnormal EKG with ST-T abnormalities inferior and laterally that are similar to previous tracings. Patient denies any history of cardiac problems, diabetes or family history of heart disease. 1. Left atrium is a mildly enlarged, left ventricle is normal size, there is mild qualitative concentric left ventricular hypertrophy, visually estimated ejection fraction 55% with no regional wall motion abnormality. 2. The right atrium and right ventricle are normal size and contractility. 3. The aortic valve is minimally thickened and fibrosed. 4. The mitral and tricuspid valvular grossly normal. 5. The pulmonic valve is poorly present. 6. No significant pericardial effusion noted. DOPPLER INTERROGATION: Doppler interrogation of the aortic, mitral and tricuspid valvular presence of mild mitral and tricuspid regurgitation, tricuspid regurgitation jet velocity is inadequate for calculation of the right ventricular systolic pressure, grade 1 diastolic dysfunction seen with tissue Doppler evidence of raised left atrial pressure. CONCLUSION: 1. Mildly enlarged left atrium, normal left ventricular size, mild concentric left ventricular hypertrophy, visually estimated ejection fraction 55% with no regional wall motion abnormality, grade 1 diastolic dysfunction seen with tissue Doppler evidence of raised left atrial pressure. 2. Mild mitral and tricuspid regurgitation 3. No significant pericardial effusion noted. pt with improved exam and increased wbc sec to steroids - he had gxt - DOSE: 10.60 mCi technetium 99m mibi intravenously at rest followed by 28.7 mCi technetium 99m mibi following the intravenous ministration of 0.4 mg of Lexiscan. Resting blood pressure is 127/64. Stress blood pressure 113/74. FINDINGS: Ejection fraction is calculated to be 73. Stress images reveal decreased activity in the anterior wall septum wall severely decreased in the inferior wall. Rest images reveal no change in the inferior wall with improved activity in the anterior and septal wall. Gated images calculated ejection fraction of 73% with normal wall motion IMPRESSION: Reversible ischemia throughout the anterior and septal wall. Inferior defect is most consistent with diaphragm attenuation given the normal ejection fraction. This is still a high risk abnormal stress test pt had card cath which was ok -GIOGRAPHIC RESULTS: 1. The left main artery normal 2. The left anterior descending artery is proximally normal with mid vessel mild luminal irregularities less than 10% stenosed 3. The circumflex artery nondominant and normal 4. The right coronary artery is a large dominant vessel and has a mid vessel 10% stenosis with distal nonflow limiting calcifications creating mild less than 10% luminal irregularities 5. The ANGULO ventriculogram reveals normal 65% 6. The left ventricular end-diastolic pressure 15 mmHg IMPRESSION: 1. Mild nonflow limiting coronary disease 2. Normal ejection fraction 3. Normal to mildly elevated LVEDP PLAN: 1. Evaluation noncardiac symptomatology pt with cap and copd and tob use and will be d/c to be followed as op Objective Vital signs: Temp Pulse Resp BP Pulse Ox 98.0 F 83 17 114/64 96 06/30/18 11:15 06/30/18 11:15 06/30/18 11:15 06/30/18 11:15 06/30/18 11:15 no acute distress, thin - *Routine HEENT Exam Head: Present: normocephalic Eye: Present: EOMI, PERRL ENT: Present: mucous membranes dry - *Routine Neck Exam Present: supple. Absent: JVD - *Routine Respiratory Exam Present: decreased breath sounds - *Routine Cardiovascular Exam Present: RRR, murmur - *Routine Abdominal Exam Present: soft - *Routine Extremities Exam Present: full ROM - *Routine Skin Exam Present: intact - *Routine Neurological Exam Present: alert, oriented X3, CN II-XII intact - Routine Psychiatric Exam Present: normal affect Results Labs on day of discharge: Labs from last 24 hours 06/30/18 06/30/18 06/30/18 05:55 05:55 05:55 WBC 22.7 H* D RBC 4.28 L Hgb 12.7 L Hct 40.5 L MCV 94.7 H MCH 29.7 MCHC 31.3 L RDW 14.2 Plt Count 258 D MPV 7.9 Neut % (Auto) 92.8 H Lymph % (Auto) 3.9 L [place] % (Auto) 3.1 Eos % (Auto) 0.1 Baso % (Auto) 0.0 L Neut # (Auto) 21.3 H Lymph # (Auto) 0.9 [place] # (Auto) 0.7 Eos # (Auto) 0.0 Baso # (Auto) 0.0 Total Counted 100 Neutrophils % (Manual) 90 H Band Neutrophils % 4.0 Lymphocytes % (Manual) 4 L Monocytes % (Manual) 2 Platelet Estimate Normal RBC Morphology Normal Sodium 142 Potassium 3.3 L Chloride 105 Carbon Dioxide 24 Anion Gap 16.3 H BUN 15 D Creatinine 1.04 Estimated Creat Clear 68 Estimated GFR 72 Est GFR ( Amer) 87 Glucose 150 H Calcium 8.9 Total Bilirubin 0.3 AST 7 L D ALT 21 D Alkaline Phosphatase 71 Total Protein 6.4 Albumin 2.5 L D Globulin 3.9 H Albumin/Globulin Ratio 0.6 L Triglycerides 43 Cholesterol 89 L LDL Cholesterol 36 VLDL Cholesterol 9 HDL Cholesterol 44 Cholesterol/HDL Ratio 2.0 DS: Diagnosis - Discharge Diagnosis (1) Atypical angina Status: Acute (2) Abnormal stress test Status: Acute (3) Shortness of breath Status: Acute (4) Dizziness Status: Acute (5) Weakness Status: Acute (6) Tobacco use disorder, continuous Status: Acute (7) Abnormal EKG Status: Acute (8) Community acquired pneumonia Status: Acute (9) Schizophrenia Status: Acute (10) Anemia Status: Acute Discharge Plan - Patient Discharge Instructions ACTIVITY: Continue current activity DIET: continue same diet Patient Instructions: DI for Pneumonia -- Adult - Follow up Plan Disposition: Home, Self-Halfway Medications: Home Medications Medication Instructions Recorded Confirmed Type Divalproex Sodium 250 mg PO BID 05/22/18 06/29/18 History Divalproex Sodium 500 mg PO BID 05/22/18 06/29/18 History Tamsulosin HCl [Flomax 0.4mg 0.4 mg PO HS 05/22/18 06/29/18 History capsule] cloZAPine [Clozapine] 400 mg PO HS 05/22/18 06/29/18 History cloZAPine [Clozaril] 100 mg PO HS 05/22/18 06/29/18 History Docusate Sodium [Docusate Sodium 100 mg PO BID 06/29/18 06/29/18 History 100mg Cap] Azithromycin [Zithromax 250mg 250 mg PO DIRECTED #6 tab 06/30/18 Rx tab] Nicotine [Nicoderm 21mg/24hr 21 mg TD DAILYP PRN #30 patch.td24 06/30/18 Rx patch] predniSONE [Prednisone 20mg 20 mg PO BID #10 tab 06/30/18 Rx Tab] Prescriptions/Medication Reconciliation: New Divalproex Sodium [Depakote 250mg (Delayed-Release) tablet] 750 mg PO BID tablet Nicotine [Nicoderm 21mg/24hr patch] 21 mg TD DAILYP PRN #30 patch.td24 PRN Reason: Nicotine Cravings Azithromycin [Zithromax 250mg tab] 250 mg PO DIRECTED #6 tab predniSONE [Prednisone 20mg Tab] 20 mg PO BID #10 tab Continue Divalproex Sodium 500 mg PO BID Divalproex Sodium 250 mg PO BID cloZAPine [Clozaril] 100 mg PO HS cloZAPine [Clozapine] 400 mg PO HS Tamsulosin HCl [Flomax 0.4mg capsule] 0.4 mg PO HS Docusate Sodium [Docusate Sodium 100mg Cap] 100 mg PO BID
== END 2018-06-30 17:21 | disposition home or self-care (01) | DRG 195 ==
LOC: ER 00:56 → 2ND 00:56 → OBSVTOIN 04:00 → 2ND 04:03
PROVIDERS: ADMIT Emergency Medicine; ATTEND Emergency Medicine
CPT/HCPCS: 36415; 71010; 71045; 78452; 80048; 80053; 80061; 80164; 81001; 83605; 84484; 85007; 85025; 87040; 87070; 87205; 87275; 87276; 93005; 93017; 93306; 93458; 94640; 94761; 96365; 96366; 96367; 96375; 99285; A9502; J0456; J1644; J2785; Q9967

== ENCOUNTER → 2018-07-12 07:48 | Outpatient (CLI) | payer MEDICARE, OTHER, MEDICAID, SELFPAY ==
--- NOTE | 2018-07-12 07:55 | US_ITS ---
US Arterial wrist Brachial Ind History: Arm pain, smoker ORDERING PHYSICIAN: Suhas Strong MD PATIENT AGE: 62 years TECHNIQUE: Segmental pressures obtained of both right and left leg. These are compared to brachial blood pressure to yield index at each level sampled including summary MORIS. The data sheets from the procedure are available in PACS FINDINGS Rest study only performed today No prior studies available for comparison. Blood pressures reported are in millimeters mercury. RIGHT UPPER EXTREMITY WBI = 1.1. RIGHT UPPER EXTREMITY DBI=0.9 Brachial BP: 124 Forearm BP: 110 Wrist radial BP: 130 Wrist ulnar BP: 114 Digit =150 Left UPPER EXTREMITY WBI = 1.0. Left UPPER EXTREMITY DBI=1.0 Brachial BP: 110 Forearm BP: 127 Wrist radial BP: 125 Wrist ulnar BP: 128 Digit =120 Pulses and waveforms: Normal IMPRESSION: The wrist brachial indices reported above are within normal limits. Waveforms and pulses are also unremarkable. The left brachial pressure is 14 point lower than the right side. This is of questionable clinical significance. Recommend repeat to confirm this difference. If there remains a difference in blood pressure then, would recommend a CT angiogram of the subclavian and axillary arteries to evaluate for possible stenosis
== END ==
PROVIDERS: PCP Emergency Medicine; Visit Provider Internal Medicine
DX: M79.602 Pain in left arm (principal); R42 Dizziness and giddiness; R06.02 Shortness of breath; I51.9 Heart disease, unspecified; F20.9 Schizophrenia, unspecified; F17.209 Nicotine dependence, unspecified, with unspecified nicotine-induced disorders; R09.89 Other specified symptoms and signs involving the circulatory and respiratory systems
CPT/HCPCS: 93922

== ENCOUNTER → 2018-07-26 13:15 | Outpatient (CLI) | payer MEDICARE, OTHER, MEDICAID, SELFPAY ==
[2018-07-26 13:35] LABS: Blood Urea Nitrogen 14 mg/dL (7-18); Creatinine,Serum 1.13 mg/dL (0.70-1.30); Estimated Glomerular Filt Rate 66 ml/min (>60); GFR (African American) 79 ML/MIN (>60)
--- NOTE | 2018-07-26 13:56 | CT_ITS ---
CT angio chest HISTORY: ITS.REASON: bilateral arm numbness, asymmetric blood pressure in the upper extremities ORDERING PHYSICIAN: Afshan Steel PATIENT AGE: 62 years COMPARISON: None TECHNIQUE: Axial images obtained following the administration of 100 mL of Optiray 350. Sagittal, and coronal reformatted images are also generated and reviewed. All CT scans at the facility use one or more dose reduction, viz: automated exposure control, ma/kV adjustment per patient size (including targeted exams where dose is matched to indication, i.e. head), or iterative reconstruction technique. FINDINGS: There is no evidence of left subclavian, axillary, or proximal brachial stenosis. The distal aspect of brachial artery is not imaged on this exam. The right brachiocephalic, subclavian and proximal brachial arteries have an unremarkable appearance. The common carotids, carotid bulbs and most proximal aspect of the internal carotids show no evidence of stenosis. Coronary artery calcifications are present involving the proximal LAD Nonvascular findings: There are trace bilateral pleural effusions. Only the mid and upper chest are imaged.. No obvious upper mediastinal or hilar mass. IMPRESSION: No stenotic lesions evident of the great vessels, subclavian, axillary, or proximal brachial arteries. The common carotids and carotid bifurcations are also unremarkable. Trace bilateral pleural effusions. Coronary artery calcification noted
== END ==
PROVIDERS: Visit Provider Urology
DX: F17.209 Nicotine dependence, unspecified, with unspecified nicotine-induced disorders (principal); I25.10 Atherosclerotic heart disease of native coronary artery without angina pectoris; I95.9 Hypotension, unspecified; M79.601 Pain in right arm; M79.602 Pain in left arm; R00.0 Tachycardia, unspecified; R06.02 Shortness of breath; R20.0 Anesthesia of skin; R20.2 Paresthesia of skin; R42 Dizziness and giddiness
CPT/HCPCS: 36415; 71275; 82565; 84520

== ENCOUNTER 2018-11-13 21:47 | Emergency (ER) | payer MEDICARE, OTHER, SELFPAY ==
[2018-11-13 21:48] VITALS: BP 130/71; PULSE 88; RESP 15; TEMP 37.1; O2SAT 95; BMI 21.5
--- NOTE | 2018-11-13 21:52 | XR_ITS ---
XR chest portable HISTORY: ITS.REASON: chest pain ORDERING PHYSICIAN: Olman Cross MD PATIENT AGE: 63 years COMPARISON: 11/06/2018 FINDINGS: The cardiomediastinal silhouette and pulmonary vascularity are within normal limits. The lungs are clear without infiltrates, suspicious nodules, or pleural effusions. No acute bony abnormalities. IMPRESSION: Negative chest, no acute finding
--- NOTE | 2018-11-13 21:53 | CT_ITS ---
CT head/brain wo con HISTORY: Altered mental status, altered level of consciousness, confusion its orientation, lethargy ITS.REASON: ams ORDERING PHYSICIAN: Olman Cross MD PATIENT AGE: 63 years COMPARISON: 05/22/2018 TECHNIQUE: Axial images obtained without contrast. Brain and bone windows reviewed. All CT scans at the facility use one or more dose reduction, viz: automated exposure control, ma/kV adjustment per patient size (including targeted exams where dose is matched to indication, i.e. head), or iterative reconstruction technique. FINDINGS: No midline shift, mass effect, intracranial hemorrhage, hydrocephalus, or extra-axial fluid collection is evident. There is mild atrophy. The calvarium has an unremarkable appearance. No mastoid effusion. No sinus air-fluid levels.. IMPRESSION: No acute intracranial findings
[2018-11-13 22:06] LABS: Basophils % 0.1 % (0.1-2.0); Eosinophils % 0.2 % (0.1-12.0); Hematocrit 35.2 % (42.0-52.0); Hemoglobin 12.3 g/dL (14.1-18.0); Lymphocytes # 2.2 K/mm3 (0.7-4.5); Lymphocytes % 19.4 % (10-50); Mean Corpuscular Hemoglobin 30.1 pg (27.0-31.2); Mean Corpuscular Volume 86.1 fl (80-94); Mean Platelet Volume 7.2 fl (7.4-10.4); Monocytes % 8.5 % (1.7-9.3); Neutrophils # 8.2 K/mm3 (1.8-7.8); Neutrophils % 71.7 % (37.0-80.0); Platelet Count 264 K/mm3 (142-424); Red Blood Count 4.09 M/mm3 (4.60-6.20); Red Cell Distribution Width 14.8 % (11.5-17.5); White Blood Count 11.4 K/mm3 (4.8-10.8)
[2018-11-13 22:09] LABS: Appearance,Urine CLEAR (Clear); Bilirubin,Urine Negative (Negative); Blood, Urine Negative (Negative); Color,Urine YELLOW (Yellow); Glucose,Urine (UA) Negative (Negative); Ketones,Urine Negative (Negative); Leukocyte Esterase,Urine Negative (Negative); Microscopic, Urine URINE MICROSCOPIC (MICROSCOPIC); Nitrate,Urine Negative (Negative); Protein,Urine Negative (Negative); Specific Gravity, Urine 1.015 (1.005-1.030)
[2018-11-13 22:14] LABS: Amphetamine/Metha Screen,Urine Negative ng/mL (<1000); Barbiturates Screen,Urine Negative ng/mL (<200); Benzodiazepines Screen,Urine Negative ng/mL (<200); Cannabinoid Screen,Urine Negative ng/mL (<50); Cocaine Screen,Urine Negative ng/mL (<300); Methadone Screen,Urine Negative ng/mL (<300); Opiate Screen,Urine Negative ng/mL (<300); Phencyclidine Screen,Urine Negative ng/mL (<25)
[2018-11-13 22:16] LABS: Amorphous Sediment,Urine Trace /lpf
[2018-11-13 22:21] LABS: Alanine Aminotransferase 17 U/L (12-78); Albumin/Globulin Ratio 0.9 (1.1-1.8); Alkaline Phosphatase 73 U/L (46-116); Anion Gap 13.4 mEq/L (5-15); Aspartate Amino Transferase 20 U/L (15-37); Bilirubin,Total 0.4 mg/dL (0.2-1.0); Blood Urea Nitrogen 16 mg/dL (7-18); Calcium 8.5 mg/dL (8.5-10.1); Carbon Dioxide 27 mmol/L (21.0-32.0); Chloride 97 mmol/L (98-107); Creatinine Clearance Estimated 58 mL/min (50-200); Creatinine,Serum 1.23 mg/dL (0.70-1.30); Estimated Glomerular Filt Rate 59 ml/min (>60); GFR (African American) 72 ML/MIN (>60); Globulin 3.2 gm/dl (1.3-3.2); Glucose 100 mg/dL (74-106); Potassium 4.4 mmoL/L (3.5-5.1); Sodium 133 mmol/L (136-145); Total Protein,Serum 6.2 gm/dL (6.4-8.2)
[2018-11-13 22:23] LABS: Amylase 26 U/L (25-115); Salicylate 7.2 mg/dL (2.8-20.0); Troponin I < 0.02 ng/ml (0.00-0.06)
[2018-11-13 22:24] LABS: Acetaminophen 0 ug/mL (10-30); Ethyl Alcohol 0 mg/dL (0-99)
--- NOTE | 2018-11-13 22:58 | [facility].EDAMS ---
ED Disposition Clinical Impression: Change in mental status, Acute (undifferentiated) schizophrenia Disposition: Home, Self-Care Condition on Discharge: Fair Instructions: DI for Altered Mental Status Referrals: Olman Pascual MD [Primary Care Provider] - Time of Disposition: 04:50 - Critical Care Critical Care Time: No Attestation: On 11/13/18, the high probability of a clinically significant, sudden or life threatening deterioration of the following system(s) required my full and direct attention, intervention and personal management. The time I documented below is in addition to time spent performing reported procedures but includes the following listed in this critical care notation. Medical Decision Making - Medical Records Medical records reviewed: Yes: I reviewed the patient's medical records. - [place] Inquiry Pt receiving controlled substance: No [place] was queried for this patient: No Vital Signs: 11/13/18 21:48 11/13/18 23:03 11/14/18 00:21 Temperature 98.8 F Temperature Source Oral Pulse Rate [Right Brachial] 88 77 70 Respiratory Rate 15 16 14 Blood Pressure [Right Arm] 130/71 108/71 L 110/78 Blood Pressure Mean [Right Arm] 90 83 88 Blood Pressure Source [Right Arm] Automatic Cuff Automatic Cuff Blood Pressure Position [Right Arm] Sitting Sitting 02 Sat by Pulse Oximetry 95 97 95 Oxygen Delivery Method Room Air Room Air Room Air 11/14/18 00:54 11/14/18 02:28 11/14/18 05:30 Temperature Temperature Source Pulse Rate [Right Brachial] 68 68 76 Respiratory Rate 16 14 16 Blood Pressure [Right Arm] 110/71 116/69 122/56 L Blood Pressure Mean [Right Arm] 84 84 78 Blood Pressure Source [Right Arm] Automatic Cuff Blood Pressure Position [Right Arm] Sitting Supine 02 Sat by Pulse Oximetry 96 96 96 Oxygen Delivery Method Room Air Room Air Room Air - Lab Data Lab results reviewed: Yes: I reviewed the patient's lab results. Lab Results 11/13/18 21:45: Troponin I < 0.02, Amylase 26, Salicylates 7.2, Acetaminophen 0 L, Plasma/Serum Alcohol 0 11/13/18 21:45: Urine Color Yellow, Urine Appearance Clear, Urine pH 7.0, Ur Specific Donie 1.015, Urine Protein Negative, Urine Glucose (UA) Negative, Urine Ketones Negative, Urine Blood Negative, Urine Nitrate Negative, Urine Bilirubin Negative, Urine Urobilinogen 1.0, Ur Leukocyte Esterase Negative, Urine WBC 3-5, Amorphous Sediment Trace 11/13/18 21:45: WBC 11.4 H, RBC 4.09 L, Hgb 12.3 L, Hct 35.2 L, MCV 86.1, MCH 30.1, MCHC 35.0, RDW 14.8, Plt Count 264, MPV 7.2 L, Neut % (Auto) 71.7, Lymph % (Auto) 19.4, [place] % (Auto) 8.5, Eos % (Auto) 0.2, Baso % (Auto) 0.1, Neut # (Auto) 8.2 H, Lymph # (Auto) 2.2, [place] # (Auto) 1.0, Eos # (Auto) 0.0, Baso # (Auto) 0.0 11/13/18 21:45: Sodium 133 L, Potassium 4.4, Chloride 97 L, Carbon Dioxide 27, Anion Gap 13.4, BUN 16, Creatinine 1.23, Estimated Creat Clear 58, Estimated GFR 59, Est GFR ( Amer) 72, Glucose 100, Calcium 8.5, Total Bilirubin 0.4, AST 20, ALT 17, Alkaline Phosphatase 73, Total Protein 6.2 L, Albumin 3.0 L, Globulin 3.2, Albumin/Globulin Ratio 0.9 L 11/13/18 21:45: Urine Opiates Screen Negative, Urine Methadone Screen Negative, Ur Barbituates Screen Negative, Ur Phencyclidine Scrn Negative, Ur Amphetamines Screen Negative, U Benzodiazepines Scrn Negative, Urine Cocaine Screen Negative, U Marijuana (THC) Screen Negative Result diagrams: 11/13/18 21:45 11/13/18 21:45 Orders (Tests/Meds): ORDERS Category Date Time Status CT head/brain wo con Stat Cat Scan 11/13/18 21:53 Taken XR chest portable Stat Exams 11/13/18 21:52 Taken ECG Request by /Eddie Stat Y 11/13/18 21:52 Ordered Altered Mental Status HPI - General Chief Complaint: Altered Mental Status Stated Complaint: mental status changes Time Seen by Provider: 11/13/18 22:58 Mode of Arrival: EMS Source of Information: EMS Limitations: baseline scizophrenia Description of Symptoms (Recalled from ER Triage Doc. by RN):
[2018-11-13 23:03] VITALS: BP 108/71; PULSE 77; RESP 16; O2SAT 97
--- NOTE | 2018-11-13 23:03 | ED_ITS ---
ED Disposition Clinical Impression: Change in mental status, Acute (undifferentiated) schizophrenia Disposition: Home, Self-Care Condition on Discharge: Fair Instructions: DI for Altered Mental Status Referrals: Olman Pascual MD [Primary Care Provider] - Time of Disposition: 04:50 - Critical Care Critical Care Time: No Attestation: On 11/13/18, the high probability of a clinically significant, sudden or life threatening deterioration of the following system(s) required my full and direct attention, intervention and personal management. The time I documented below is in addition to time spent performing reported procedures but includes the following listed in this critical care notation. Medical Decision Making - Medical Records Medical records reviewed: Yes: I reviewed the patient's medical records. - [place] Inquiry Pt receiving controlled substance: No [place] was queried for this patient: No Vital Signs: 11/13/18 21:48 11/13/18 23:03 11/14/18 00:21 Temperature 98.8 F Temperature Source Oral Pulse Rate [Right Brachial] 88 77 70 Respiratory Rate 15 16 14 Blood Pressure [Right Arm] 130/71 108/71 L 110/78 Blood Pressure Mean [Right Arm] 90 83 88 Blood Pressure Source [Right Arm] Automatic Cuff Automatic Cuff Blood Pressure Position [Right Arm] Sitting Sitting 02 Sat by Pulse Oximetry 95 97 95 Oxygen Delivery Method Room Air Room Air Room Air 11/14/18 00:54 11/14/18 02:28 11/14/18 05:30 Temperature Temperature Source Pulse Rate [Right Brachial] 68 68 76 Respiratory Rate 16 14 16 Blood Pressure [Right Arm] 110/71 116/69 122/56 L Blood Pressure Mean [Right Arm] 84 84 78 Blood Pressure Source [Right Arm] Automatic Cuff Blood Pressure Position [Right Arm] Sitting Supine 02 Sat by Pulse Oximetry 96 96 96 Oxygen Delivery Method Room Air Room Air Room Air - Lab Data Lab results reviewed: Yes: I reviewed the patient's lab results. Lab Results 11/13/18 21:45: Troponin I < 0.02, Amylase 26, Salicylates 7.2, Acetaminophen 0 L, Plasma/Serum Alcohol 0 11/13/18 21:45: Urine Color Yellow, Urine Appearance Clear, Urine pH 7.0, Ur Specific [place] 1.015, Urine Protein Negative, Urine Glucose (UA) Negative, Urine Ketones Negative, Urine Blood Negative, Urine Nitrate Negative, Urine Bili trevino Negative, Urine Urobilinogen 1.0, Ur Leukocyte Esterase Negative, Urine WBC 3-5, Amorphous Sediment Trace 11/13/18 21:45: WBC 11.4 H, RBC 4.09 L, Hgb 12.3 L, Hct 35.2 L, MCV 86.1, MCH 30.1, MCHC 35.0, RDW 14.8, Plt Count 264, MPV 7.2 L, Neut % (Auto) 71.7, Lymph % (Auto) 19.4, [place] % (Auto) 8.5, Eos % (Auto) 0.2, Baso % (Auto) 0.1, Neut # (Auto) 8.2 H, Lymph # (Auto) 2.2, [place] # (Auto) 1.0, Eos # (Auto) 0.0, Baso # (Auto) 0.0 11/13/18 21:45: Sodium 133 L, Potassium 4.4, Chloride 97 L, Carbon Dioxide 27, Anion Gap 13.4, BUN 16, Creatinine 1.23, Estimated Creat Clear 58, Estimated GFR 59, Est GFR ( Amer) 72, Glucose 100, Calcium 8.5, Total Bilirubin 0.4, AST 20, ALT 17, Alkaline Phosphatase 73, Total Protein 6.2 L, Albumin 3.0 L, Globulin 3.2, Albumin/Globulin Ratio 0.9 L 11/13/18 21:45: Urine Opiates Screen Negative, Urine Methadone Screen Negative, Ur Barbituates Screen Negative, Ur Phencyclidine Scrn Negative, Ur Amphetamines Screen Negative, U Benzodiazepines Scrn Negative, Urine Cocaine Screen Negative, U Marijuana (THC) Screen Nega
[2018-11-14 00:21] VITALS: BP 110/78; PULSE 70; RESP 14; O2SAT 95
[2018-11-14 00:54] VITALS: BP 110/71; PULSE 68; RESP 16; O2SAT 96
[2018-11-14 02:28] VITALS: BP 116/69; PULSE 68; RESP 14; O2SAT 96
[2018-11-14 05:30] VITALS: BP 122/56; PULSE 76; RESP 16; O2SAT 96
--- NOTE | 2018-11-14 06:08 | PC.NURSE ---
Pt is awake and following commands, able to ambulate without assist.
[2018-11-14 06:10] VITALS: BP 122/54; PULSE 72; RESP 16; TEMP 36.9; O2SAT 97
== END 2018-11-14 06:15 | disposition home or self-care (01) ==
PROVIDERS: Emergency Provider Emergency Medicine; PCP Emergency Medicine
DX: F20.9 Schizophrenia, unspecified (principal); Z79.899 Other long term (current) drug therapy; F17.210 Nicotine dependence, cigarettes, uncomplicated
CPT/HCPCS: 70450; 71045; 80053; 80305; 80329; 81001; 82150; 84484; 85025; 93005; 99284

== ENCOUNTER → 2018-12-08 13:16 | Outpatient (CLI) | payer MEDICARE, OTHER, SELFPAY ==
[2018-12-08 14:19] LABS: Blood Urea Nitrogen 8 mg/dL (7-18); Creatinine,Serum 0.98 mg/dL (0.70-1.30); Estimated Glomerular Filt Rate 77 ml/min (>60); GFR (African American) 93 ML/MIN (>60)
--- NOTE | 2018-12-08 14:23 | CT_ITS ---
CT chest w con HISTORY: ITS.REASON: smoker,cough ORDERING PHYSICIAN: Olman Pascual MD PATIENT AGE: 63 years COMPARISON: 07/26/2018. TECHNIQUE: Axial images obtained following the administration of 75 mL of Optiray 350 . Sagittal, and coronal reformatted images are also generated and reviewed. All CT scans at the facility use one or more dose reduction, viz: automated exposure control, ma/kV adjustment per patient size (including targeted exams where dose is matched to indication, i.e. head), or iterative reconstruction technique. FINDINGS: PULMONARY ARTERIES:No pulmonary embolus evident. AORTA:No acute finding. No thoracic aortic aneurysm or dissection evident LUNGS:Lungs are fairly clear except there is some bilateral diffuse peripheral generalized mild prominence of the interlobular septae. Size of pulmonary vessels appear to be fairly normal. PLEURAL SPACES:There are bilateral small posterior pleural effusions. There is no pneumothorax. HEART:Unremarkable. Normal heart size. No significant pericardial effusion. MEDIASTINAL AND HILAR STRUCTURES:No mediastinal or hilar mass evident. No dominant adenopathy. BONY STRUCTURES:No acute bony abnormalities apparent LYMPH NODES:No enlarged lymph nodes evident UPPER ABDOMEN:There is a partially visualized fluid attenuation lesion from the upper pole cortex of the right kidney suggesting a small cyst. IMPRESSION: Bilateral small pleural effusions. No evidence of pulmonary emboli. Subtle interstitial prominence. This could be mild edema, or interstitial fibrotic changes. Correlate to rule out fluid overload or mild CHF.
== END ==
PROVIDERS: PCP Emergency Medicine; Visit Provider Emergency Medicine
DX: R93.89 Abnormal findings on diagnostic imaging of other specified body structures (principal)
CPT/HCPCS: 36415; 71260; 82565; 84520; Q9967

== ENCOUNTER → 2018-12-08 13:34 | Outpatient (CLI) | payer MEDICARE, OTHER, SELFPAY | PROVIDERS: Visit Provider Emergency Medicine | DX: I25.10 Atherosclerotic heart disease of native coronary artery without angina pectoris (principal) | CPT/HCPCS: 36415; 71260; 82565; 84520; Q9967 ==

== ENCOUNTER 2019-11-11 22:57 | Inpatient (IN) | payer MEDICARE, OTHER, SELFPAY ==
[2019-11-11 22:58] VITALS: BMI 20.9
--- NOTE | 2019-11-11 23:24 | ECG_ITS ---
APPROVED REPORT Exam: Resting ECG HR:89 bpm ECG Measurements Heart Rate 89 AXES RI 130 P 75 QRSd 90 QRS 82 QT 358 T 82 QTc 435 <Conclusion> Normal sinus rhythm Nonspecific ST abnormality Abnormal ECG Electronically signed by : Jose Cortes, 11/13/2019 07:09:40
[2019-11-11 23:48] VITALS: BP 90/55; PULSE 93; RESP 24; TEMP 38.1; O2SAT 95; BMI 20.9
[2019-11-11 23:51] LABS: Microscopic, Urine URINE MICROSCOPIC (MICROSCOPIC)
[2019-11-11 23:53] LABS: Basophils # 0.7 K/mm3 (0-0.2); Basophils % 7.1 % (0.1-2.0); Eosinophils # 0.5 K/mm3 (0.0-0.4); Eosinophils % 5.2 % (0.1-12.0); Hemoglobin 13.2 g/dL (14.1-18.0); Lymphocytes # 1.6 K/mm3 (0.7-4.5); Lymphocytes % 16.9 % (10-50); Mean Corpuscular HGB Conc 34.7 g/dL (31.8-35.4); Mean Corpuscular Hemoglobin 30.6 pg (27.0-31.2); Mean Corpuscular Volume 88.4 fl (80-94); Mean Platelet Volume 7.6 fl (7.4-10.4); Monocytes # 1.3 K/mm3 (0.1-1.0); Monocytes % 14.6 % (1.7-9.3); Neutrophils # 5.8 K/mm3 (1.8-7.8); Neutrophils % 63.3 % (37.0-80.0); Platelet Count 237 K/mm3 (142-424); Red Cell Distribution Width 15.2 % (11.5-17.5); White Blood Count 9.2 K/mm3 (4.8-10.8)
[2019-11-11 23:58] LABS: Appearance,Urine CLEAR (Clear); Bilirubin,Urine Negative (Negative); Blood, Urine Negative (Negative); Color,Urine YELLOW (Yellow); Glucose,Urine (UA) Negative (Negative); Ketones,Urine TRACE (Negative); Leukocyte Esterase,Urine Negative (Negative); Nitrate,Urine Negative (Negative); Protein,Urine 2+ (Negative); Specific Gravity, Urine 1.025 (1.005-1.030)
--- NOTE | 2019-11-11 23:59 | HMH.EDAMS ---
ED Disposition Clinical Impression: Delirium due to general medical condition, Tobacco use disorder, continuous, SIRS (systemic inflammatory response syndrome), COPD exacerbation Schizophrenia Qualifiers: Schizophrenia type: unspecified Qualified Code(s): F20.9 - Schizophrenia, unspecified CAP (community acquired pneumonia) Qualifiers: Laterality: right Lung location: lower lobe of lung Qualified Code(s): J18.9 - Pneumonia, unspecified organism Valproic acid toxicity Qualifiers: Encounter type: initial encounter Injury intent: accidental or unintentional Qualified Code(s): T42.6X1A - Poisoning by other antiepileptic and sedative-hypnotic drugs, accidental (unintentional), initial encounter Disposition: Admitted as Observation Condition on Discharge: Fair - Critical Care Critical Care Time: No Attestation: On 11/11/19, the high probability of a clinically significant, sudden or life threatening deterioration of the following system(s) required my full and direct attention, intervention and personal management. The time I documented below is in addition to time spent performing reported procedures but includes the following listed in this critical care notation. Medical Decision Making - Medical Records Medical records reviewed: Yes: I reviewed the patient's medical records. - [place] Inquiry Pt receiving controlled substance: No Vital Signs: 11/11/19 23:48 11/12/19 00:29 Temperature 100.5 F H Temperature Source Rectal Pulse Rate [Right] 93 H 91 H Respiratory Rate 24 20 Blood Pressure [Right Arm] 90/55 L 125/67 Blood Pressure Mean [Right Arm] 66 86 Blood Pressure Source [Right Arm] Automatic Cuff Blood Pressure Position [Right Arm] Supine 02 Sat by Pulse Oximetry 95 98 Oxygen Delivery Method Room Air Room Air - Lab Data Lab results reviewed: Yes: I reviewed the patient's lab results. Lab Results 11/11/19 23:05: Urine Color Yellow, Urine Appearance Clear, Urine pH 7.0, Ur Specific [place] 1.025, Urine Protein 2+, Urine Glucose (UA) Negative, Urine Ketones Trace, Urine Blood Negative, Urine Nitrate Negative, Urine Bilirubin Negative, Urine Urobilinogen 2.0, Ur Leukocyte Esterase Negative, Urine WBC 10-20, Ur Squamous Epith Cells 3-5, Ur Renal Epithelial Cell 5-10 11/11/19 23:05: WBC 9.2, RBC 4.30 L, Hgb 13.2 L, Hct 38.0 L, MCV 88.4, MCH 30.6, MCHC 34.7, RDW 15.2, Plt Count 237, MPV 7.6, Neut % (Auto) 63.3, Lymph % (Auto) 16.9, [place] % (Auto) 14.6 H, Eos % (Auto) 5.2, Baso % (Auto) 7.1 H, Neut # (Auto) 5.8, Lymph # (Auto) 1.6, [place] # (Auto) 1.3 H, Eos # (Auto) 0.5 H, Baso # (Auto) 0.7 H 11/11/19 23:05: Sodium 133 L, Potassium 3.7, Chloride 99, Carbon Dioxide 26, Anion Gap 11.7, BUN 14, Creatinine 1.40 H, Estimated Creat Clear 51, Estimated GFR 51 L, Est GFR ( Amer) 62, Glucose 114 H, Calcium 8.7, Total Bilirubin 0.1 L, AST 18, ALT 9 L, Alkaline Phosphatase 69, Troponin I < 0.01, Total Protein 6.2 L, Albumin 3.5, Globulin 2.7, Albumin/Globulin Ratio 1.3 11/11/19 23:05: Lactate 1.3 11/11/19 23:05: SARS-CoV-2 IgG Ab (Rapid) Negative, SARS-CoV-2 IgM Ab (Rapid) Negative 11/11/19 23:05: Total Valproic Acid 101.3 H* Result diagrams: 11/11/19 23:05 11/11/19 23:05 Orders (Tests/Meds): ED MEDICATIONS Generic Name Dose Route Start Last Admin Trade Name Freq PRN Reason Stop Dose Admin Sodium Chloride 1,000 mls @ 999 mls/hr 11/11/19 23:45 11/12/19 00:07 Sod Chlor 0.9% 1000ml Bag IV 11/12/19 00:45 999 mls/hr .Q1H1M HUNTER Administration Azithromycin 500 mg/ Sodium 250 mls @ 250 mls/hr 11/12/19 01:00 Chloride IV 11/26/19 00:59 Q24H HUNTER Protocol Ceftriaxone Sodium 1 gm/ 50 mls @ 100 mls/hr 11/12/19 01:00 11/12/19 01:40 Sodium Chloride IV 11/26/19 00:59 100 mls/hr Q24H HUNTER Administration Protocol Clindamycin Phosphate 900 mg/ 106 mls @ 100 mls/hr 11/12/19 01:00 11/12/19 01:41 Sodium Chloride IV 11/26/19 00:59 100 mls/hr Q8H HUNTER Administration Protocol
[2019-11-12] VITALS (12 sets, daily range): BP systolic 94–125; BP diastolic 56–77; PULSE 59–92; RESP 14–22; TEMP 36.6–38.1; O2SAT 92–98; BMI 20.5
[2019-11-12 00:05] LABS: Lactic Acid 1.3 mmol/L (0.7-2.1)
[2019-11-12 00:06] LABS: Alanine Aminotransferase 9 U/L (12-78); Albumin Level 3.5 g/dl (3.5-5.0); Albumin/Globulin Ratio 1.3 (1.1-1.8); Alkaline Phosphatase 69 U/L (38-126); Anion Gap 11.7 mEq/L (5-15); Aspartate Amino Transferase 18 U/L (17-59); Blood Urea Nitrogen 14 mg/dl (9-20); Calcium 8.7 mg/dl (8.4-10.2); Carbon Dioxide 26 mmol/L (22.0-30.0); Chloride 99 mmol/L (98-107); Creatinine Clearance Estimated 51 mL/min (50-200); Estimated Glomerular Filt Rate 51 ml/min (>60); GFR (African American) 62 ML/MIN (>60); Globulin 2.7 g/dL (1.3-3.2); Glucose 114 mg/dl (74-100); Potassium 3.7 mmoL/L (3.5-5.1); Sodium 133 mmol/L (136-145); Total Protein,Serum 6.2 g/dl (6.3-8.2)
[2019-11-12 00:08] LABS: Bilirubin,Total 0.1 mg/dl (0.2-1.3)
--- NOTE | 2019-11-12 00:12 | XR_ITS ---
PROCEDURE: XR CHEST PORTABLE CLINICAL HISTORY: dry cough COMPARISON: CXR1VP XR chest portable from 06/29/2018 Chest from 11/06/[address] chest w con from 12/08/2018 XR CHEST 2V from 07/02/2019 FINDINGS: The cardiomediastinal silhouette and pulmonary vascularity are within normal limits. There is overall increased density of the right lung compared to the left which is felt to be due to technique. However, there is superimposed increased density in the right lower lobe consistent with pneumonia. Follow-up PA and lateral chest may confirm. Left lung is clear. No acute bony abnormalities. IMPRESSION: Right lower lobe pneumonia Dictated by: Yung Oneal MD 11/12/2019 06:29 Electronically signed by Yung Oneal MD in [place] 11/12/2019 06:29
[2019-11-12 00:17] LABS: Coronavirus 19 IgG Antibody Negative (Negative)
[2019-11-12 00:18] LABS: Coronavirus 19 IgM Antibody Negative (Negative)
[2019-11-12 00:29] LABS: Troponin I < 0.01 ng/ml (0.00-0.034); Valproic Acid, (Depakene) 101.3 ug/ml (50-100)
--- NOTE | 2019-11-12 00:55 | PC.NURSE ---
ABX confirmed by Alexys in Pharmacy
--- NOTE | 2019-11-12 01:13 | PC.NURSE ---
spoke with raul about patient admission
--- NOTE | 2019-11-12 02:41 | PC.NURSE ---
patient arrived to floor via stretcher.
[2019-11-12 02:57] LABS: Troponin I < 0.01 ng/ml (0.00-0.034)
--- NOTE | 2019-11-12 05:11 | PC.NURSE ---
A&OX4. PT HAS TOLERATED ROOM AIR WELL THROUGHOUT SHIFT. RESPIRATIONS CLEAR AND UNLABORED. LUNG SOUNDS BILATERALLY CLEAR. HEART RATE REGULAR. NSR ON TELEMETRY. BOWEL SOUNDS ACTIVE IN ALL 4 QUADRANTS. SOFT AND NONTENDER. WHITTEN CATHETER IN PLACE. CLEAR YELLOW URINE FLOWING FREELY. NO KINKS NOTED. 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 NS INFUSING AT 75ML/HR. PUPILS BRISK AND REACTIVE TO LIGHT. NO EDEMA NOTED. +2 PULSES NOTED THROUGHOUT. PT WAS UNABLE TO ANSWER QUESTIONS ON ADMISSION. NURSING STAFF ATTEMPTED TO WAKE HIM UP, BUT HE WOULD FALL BACK ASLEEP. HE WOKE UP AT 5AM AND STATED I TAKE A LOT TRANQUILIZING MEDICATIONS AT NIGHT AND THEY KNOCK ME OUT. PT IS COOPERATIVE IN COMMUNICATING WITH STAFF NOW. NO PAIN REPORTED. BED IN LOWEST POSITION. CALL LIGHT WITHIN REACH. BED ALARM IN PLACE TO PROMOTE SAFETY. SEIZURE PADS IN PLACE. VSS. NO CONCERNS AT THIS TIME. WILL CONTINUE TO MONITOR.
[2019-11-12 05:41] LABS: Basophils # 0.1 K/mm3 (0-0.2); Basophils % 0.8 % (0.1-2.0); Eosinophils # 0.1 K/mm3 (0.0-0.4); Eosinophils % 1.2 % (0.1-12.0); Hemoglobin 12.4 g/dL (14.1-18.0); Lymphocytes # 0.7 K/mm3 (0.7-4.5); Lymphocytes % 10.1 % (10-50); Mean Corpuscular HGB Conc 33.6 g/dL (31.8-35.4); Mean Corpuscular Hemoglobin 30.3 pg (27.0-31.2); Mean Corpuscular Volume 90.3 fl (80-94); Mean Platelet Volume 7.6 fl (7.4-10.4); Monocytes # 0.5 K/mm3 (0.1-1.0); Monocytes % 6.4 % (1.7-9.3); Neutrophils # 5.9 K/mm3 (1.8-7.8); Neutrophils % 81.6 % (37.0-80.0); Platelet Count 206 K/mm3 (142-424); Red Cell Distribution Width 15.2 % (11.5-17.5); White Blood Count 7.2 K/mm3 (4.8-10.8)
[2019-11-12 06:01] LABS: Anion Gap 8.3 mEq/L (5-15); Blood Urea Nitrogen 10 mg/dl (9-20); Calcium 7.8 mg/dl (8.4-10.2); Carbon Dioxide 25 mmol/L (22.0-30.0); Chloride 105 mmol/L (98-107); Creatinine Clearance Estimated 69 mL/min (50-200); Estimated Glomerular Filt Rate 75 ml/min (>60); GFR (African American) 91 ML/MIN (>60); Glucose 108 mg/dl (74-100); Magnesium 1.9 mg/dl (1.6-2.3); Potassium 4.3 mmoL/L (3.5-5.1); Sodium 134 mmol/L (136-145)
[2019-11-12 06:16] LABS: Troponin I < 0.01 ng/ml (0.00-0.034)
--- NOTE | 2019-11-12 08:41 | HMH.HP ---
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- pt with neg covid-19 - pt with progressive weakness with cough with low sat - pt was seen in the ed and was noted to have cap and was admitted with ivf [facility] History I have reviewed the patient's past medical history: Yes Medical History: Reports:: Anxiety, Coronary Artery Disease, Depression, Hypertension Denies:: Cancer, Diabetes Mellitus Type 1, Diabetes Mellitus Type 2, MRSA *Have you ever received a pneumonia vaccine?: Yes *Have you received a flu vaccine this season?: Yes Other Medical History: Reports: Anemia Other Surgeries: Yes: No Previous Surgery Amputation: No Fractures: No - *Social History Smoking Status: Current every day smoker Tobacco Type: cigarettes # Packs/Day (cigarettes): 1 Alcohol Intake: never Substance Use Type: crack/cocaine *Occupational Status:: disabled Housing: assisted living facility Household Members: other *Travel in the last 8 weeks: None - Psychiatric History Pschychiatric History:: Reports:: Anxiety, Depression Family Hx:: Unable to obtain Review of Systems - Review of Systems Review of systems:: pertinent systems reviewed and negative unless documented below - Constitutional Reports fever(s) - Eyes Denies change in vision - ENT Denies sore throat - *Cardiovascular Denies chest pain at rest - *Respiratory Reports cough, Reports shortness of breath, Denies coughing up blood - *Gastrointestinal Denies abdominal pain - *Genitourinary Denies urinary frequency - *Musculoskeletal Denies joint pain - Integumentary/Breasts Denies rash - *Neurologic Reports confusion, Reports weakness, Denies localized weakness, Denies frequent falls, Denies headache(s) - Psychiatric Denies thoughts of hurting/killing yourself Meds Home Medications Medication Instructions Recorded Confirmed Type Divalproex Sodium 750 mg PO BID 05/22/18 11/12/19 History Tamsulosin HCl [Flomax 0.4mg 0.4 mg PO HS 05/22/18 11/12/19 History capsule] cloZAPine [Clozaril] 500 mg PO HS 05/22/18 11/14/19 History Docusate Sodium [Docusate Sodium 100 mg PO BID 06/29/18 11/12/19 History 100mg Cap] Acetaminophen [Acetaminophen 325mg 325 mg PO Q6H PRN 11/12/19 11/12/19 History tab] Benztropine Mesylate [Cogentin 1mg 1 mg PO BID 11/12/19 11/12/19 History tablet] Melatonin [Melatin] 3 mg PO HS 11/12/19 11/12/19 History Quetiapine Fumarate [Seroquel 100 mg PO BID 11/12/19 11/12/19 History 100mg tablet] Trazodone HCl 150 mg PO HS 11/12/19 11/12/19 History Azithromycin [Zithromax 250mg 250 mg PO DIRECTED 4 Days #4 tab 11/14/19 Rx tab] cephALEXin [Keflex 500mg Cap] 500 mg PO BID 10 Days #20 cap 11/14/19 Rx Allergies Allergy/AdvReac Type Severity Reaction Status Date / Time No Known Allergies Allergy Verified 12/06/18 13:32 Exam Vital signs and Labs for Last 24 Hours: Temp Pulse Resp BP Pulse Ox 98.4 F 83 16 94/56 L 93 L 11/12/19 03:55 11/12/19 06:52 11/12/19 03:55 11/12/19 03:55 11/12/19 06:52 Laboratory Results - last 24 hr 11/11/19 23:05: Urine Color Yellow, Urine Appearance Clear, Urine pH 7.0, Ur Specific [place] 1.025, Urine Protein 2+, Urine Glucose (UA) Negative, Urine Ketones Trace, Urine Blood Negative, Urine Nitrate Negative, Urine Bilirubin Negative, Urine Urobilinogen 2.0, Ur Leukocyte Esterase Negative, Urine WBC 10-20, Ur Squamous Epith Cells 3-5, Ur Renal Epithelial Cell 5-10 11/11/19 23:05: WBC 9.2, RBC 4.30 L, Hgb 13.2 L, Hct 38.0 L, MCV 88.4, MCH 30.6, MCHC 34.7, RDW 15.2, Plt Count 237, MPV 7.6, Neut % (Auto) 63.3, Lymph % (Auto) 16.9, [place] % (Auto) 14.6 H, Eos % (Auto) 5.2, Baso % (Auto) 7.1 H, Neut # (Auto) 5.8, Lymph # (Auto) 1.6, [place] # (Auto) 1.3 H, Eos # (Auto) 0.5 H, Baso # (Auto) 0.7 H 11/11/19 23:05: Sodium 133 L, Potassium 3.7, Chloride 99, Carbon Dioxide 26, Anion Gap
--- NOTE | 2019-11-12 08:45 | HMH.PHAVTE ---
[facility] Pharmacy VTE Monitoring - Patient Demographics Admission date: 11/11/19 Report Date: 11/12/19 Time: 08:45 Allergies/Adverse Reactions: Patient Allergies No Known Allergies Allergy (Verified 12/06/18 13:32) Height: 1.8 m Weight: 66.678 kg Patient Problems: Current Active Problems Schizophrenia (Acute) Community acquired pneumonia (Acute) COPD exacerbation (Acute) Delirium due to general medical condition (Acute) SIRS (systemic inflammatory response syndrome) (Acute) Valproic acid toxicity (Acute) Tobacco use disorder, continuous (Chronic) - VTE Risk Labs: VTE Related Lab Results Hgb 12.4 g/dL (14.1-18.0) L 11/12/19 05:20 Hct 37.0 % (42.0-52.0) L 11/12/19 05:20 Plt Count 206 K/mm3 (142-424) 11/12/19 05:20 BUN 10 mg/dl (9-20) D 11/12/19 05:20 Creatinine 1.00 mg/dl (0.66-1.25) D 11/12/19 05:20 Estimated Creat Clear 69 mL/min (50-200) 11/12/19 05:20 Was VTE Risk Assessment Performed: Yes VTE Score: 3 VTE Risk Level: Low Risk - Prophylaxis VTE Prophylaxis Ordered?: Yes Types of VTE Prophylaxis: TEDS Knee High Location of Applied Device: Bilateral Lower Extremeties - VTE Diagnosis Confirmed Treatment or plan recommended: Continue Current Treatment
[2019-11-12 09:18] LABS: Adenovirus,PCR Not Detected (NotDetected); Bordetella Pertussis Not Detected (NotDetected); Chlamydophila Pneumoniae, PCR Not Detected (NotDetected); Coronavirus 229E Not Detected (NotDetected); Coronavirus NL63 Not Detected (NotDetected); Coronavirus OC43 Not Detected (NotDetected); Coronovirus HKU1,PCR Not Detected (NotDetected); Human Metapneumovirus Not Detected (NotDetected); Influenza A, PCR Not Detected (NotDetected); Influenza AH1, 2009 Not Detected (NotDetected); Influenza AH1, PCR Not Detected (NotDetected); Influenza AH3,PCR Not Detected (NotDetected); Influenza B, PCR Not Detected (NotDetected); Mycoplasma Pneumoniae, PCR Not Detected (NotDected); Parainfluenza 1, PCR Not Detected (NotDetected); Parainfluenza 2, PCR Not Detected (NotDetected); Parainfluenza 3, PCR Not Detected (NotDetected); Parainfluenza 4, PCR Not Detected (NotDetected); Respiratory Syncytial Virus Not Detected (NotDetected); Rhinovirus/Enterovirus Not Detected (NotDetected)
[2019-11-12 09:59] LABS: Coronavirus 19, PCR Detected (NotDetected)
[2019-11-12 10:58] LABS: Coronavirus 19 IgG Antibody Negative (Negative); Coronavirus 19 IgM Antibody Negative (Negative)
--- NOTE | 2019-11-12 11:16 | HMH.PHAINT ---
Addendum entered and electronically signed by Ben Tyler PharmD 11/14/19 09:10: ABLE TO OBTAIN MAR THIS MORNING FROM [facility]. NO CHANGES MADE. -LULU TYLER PHARMD Original Note: MEDICATION RECONCILIATION COMPLETED ON PATIENT USING EXTERNAL FILL HISTORY FROM PHARMACY. COULD NOT OBTAIN MAR FROM [facility]. -LULU TYLER PHARMD
--- NOTE | 2019-11-12 17:44 | PC.NURSE ---
Pt has been pleasant and cooperative since arriving to the unit. A&O X4. Lung sounds reveal scattered wheezing. Skin c/d/i. O2 sats. have been >94% on RA. No complaints of pain or SOA. Pt ambulates to and from the bathroom independently. Pt refused bath and prefers to wear his own clothes. TAMI hose in place to BLE. 18 G peripheral IV in place to the LT AC patent and infusing NS @ 75 ML/HR. VSS. Call light within reach. Will continue to monitor.
[2019-11-13] VITALS: BP 117/70; PULSE 62; RESP 20; TEMP 36.4; O2SAT 93
--- NOTE | 2019-11-13 03:13 | PC.NURSE ---
Pt pleasant and cooperative with POC, independent to bathroom with steady gait noted. Vital signs stable, afebrile, oxygen sats remain wnl on room air. IV infusing well, site is pink and patent. Nothing acute to report thus far, pt is resting with no objective s/s of pain or respiratory distress identified. ABX infused well, remains safe and in view of station, monitoring continues.
[2019-11-13 04:00] VITALS: BP 107/75; PULSE 63; RESP 18; TEMP 36.4; O2SAT 90
[2019-11-13 04:38] VITALS: BMI 19.3
[2019-11-13 07:43] LABS: Coronavirus 19 IgG Antibody Negative (Negative); Coronavirus 19 IgM Antibody Negative (Negative)
[2019-11-13 08:00] VITALS: BP 138/74; PULSE 73; RESP 18; TEMP 36.6; O2SAT 94
[2019-11-13 12:00] VITALS: BP 110/70; PULSE 99; RESP 18; TEMP 36.5; O2SAT 97
[2019-11-13 16:00] VITALS: BP 132/71; PULSE 61; RESP 17; TEMP 36.6; O2SAT 97
--- NOTE | 2019-11-13 16:14 | HMH.ACPN2 ---
Internal Medicine - PN: Subj *Date: 11/14/19 *Time: 14:26 Interval history: doing better - more alert - damir diet Exam Vital signs and Labs for Last 24 Hours: Temp Pulse Resp BP Pulse Ox 97.7 F 99 H 18 110/70 97 11/13/19 12:00 11/13/19 12:00 11/13/19 12:00 11/13/19 12:00 11/13/19 12:00 Laboratory Results - last 24 hr 11/13/19 05:45: SARS-CoV-2 IgG Ab (Rapid) Negative, SARS-CoV-2 IgM Ab (Rapid) Negative I & O for Last 24 hours: Intake & Output 11/11/19 11/12/19 11/13/19 11/14/19 11:59 11:59 11:59 11:59 Intake Total 3334 / 3334 2657 / 2657 Output Total 600 / 600 800 / 800 Balance 2734 / 2734 1857 / 1857 Weight 146 lb 15.997 oz 138 lb Microbiology Reports for the Last 24 Hours: Microbiology 11/11/19 23:05 Urine,Clean Catch Urine Culture - Preliminary NO GROWTH AFTER 24 HOURS - Constitutional no acute distress - *Routine HEENT Exam Head: Present: normocephalic Eye: Present: EOMI, PERRL ENT: Present: mucous membranes moist - *Routine Neck Exam Present: supple - *Routine Respiratory Exam Present: CTA bilaterally - *Routine Cardiovascular Exam Present: RRR, murmur - *Routine Abdominal Exam Present: soft - *Routine Extremities Exam Present: cyanosis. Absent: calf tenderness - *Routine Skin Exam Present: intact - *Routine Neurological Exam Present: alert, oriented X3, CN II-XII intact - Routine Psychiatric Exam Present: normal affect Comments: at baseline
[2019-11-13 20:00] VITALS: BP 130/86; PULSE 64; RESP 16; TEMP 36.4; O2SAT 95
[2019-11-14] VITALS: BP 118/76; PULSE 64; RESP 16; TEMP 36.4; O2SAT 95
[2019-11-14 04:00] VITALS: BP 110/62; PULSE 49; RESP 16; TEMP 36.4; O2SAT 95
--- NOTE | 2019-11-14 04:37 | PC.NURSE ---
Primary care nurse notified of low heart rate. Pt was alert and oriented when this SRNA took 0400 vital signs.
[2019-11-14 05:00] VITALS: BMI 19.5
--- NOTE | 2019-11-14 06:02 | PC.NURSE ---
Pt slept well this shift. Pt ambulates w/ steady gait independently to BR and voids w/o issues reported. No complaints reported to staff. Will continue to monitor.
[2019-11-14 08:00] VITALS: BP 120/76; PULSE 64; RESP 17; TEMP 36.2; O2SAT 97
[2019-11-14 09:14] LABS: Adenovirus,PCR Not Detected (NotDetected); Coronavirus 229E Not Detected (NotDetected); Coronavirus NL63 Not Detected (NotDetected); Coronavirus OC43 Not Detected (NotDetected); Coronovirus HKU1,PCR Not Detected (NotDetected); Human Metapneumovirus Not Detected (NotDetected); Influenza A, PCR Not Detected (NotDetected); Influenza AH1, 2009 Not Detected (NotDetected); Influenza AH1, PCR Not Detected (NotDetected); Influenza AH3,PCR Not Detected (NotDetected); Influenza B, PCR Not Detected (NotDetected); Parainfluenza 1, PCR Not Detected (NotDetected); Rhinovirus/Enterovirus Not Detected (NotDetected)
[2019-11-14 09:15] LABS: Bordetella Pertussis Not Detected (NotDetected); Chlamydophila Pneumoniae, PCR Not Detected (NotDetected); Mycoplasma Pneumoniae, PCR Not Detected (NotDected); Parainfluenza 2, PCR Not Detected (NotDetected); Parainfluenza 3, PCR Not Detected (NotDetected); Parainfluenza 4, PCR Not Detected (NotDetected); Respiratory Syncytial Virus Not Detected (NotDetected)
--- NOTE | 2019-11-14 10:10 | SW/DCPLANNER ---
I have spoke with Tl from [facility] this morning. I have informed Tl that patient will be re-swabbed for COVID today and if negative will be ready for discharge.
[2019-11-14 10:33] LABS: Coronavirus 19, PCR Detected (NotDetected)
[2019-11-14 12:00] VITALS: BP 94/64; PULSE 56; RESP 18; TEMP 36; O2SAT 95
--- NOTE | 2019-11-14 12:17 | HMH.ACPN2 ---
Internal Medicine - PN: Subj *Date: 11/14/19 *Time: 08:10 Interval history: pt laying in bed states he feels great. No c/o voiced. No fever or low o2 sat though out the night. Will retest for covid poss dc back to [facility]. Exam Vital signs and Labs for Last 24 Hours: Temp Pulse Resp BP Pulse Ox 96.8 F L 56 L 18 94/64 L 95 11/14/19 12:00 11/14/19 12:00 11/14/19 12:00 11/14/19 12:00 11/14/19 12:00 Laboratory Results - last 24 hr 11/14/19 09:10: Chlamy pneumoniae PCR Not detected, Adenovirus (PCR) Not detected, B. pertussis DNA (PCR) Not detected, Coronavirus OC43 (PCR) Not detected, Coronavirus HKU1 (PCR) Not detected, Coronavirus 229E (PCR) Not detected, COVID-19 PCR Detected A, Coronavirus NL63 (PCR) Not detected, Human Metapneumovir PCR Not detected, Influenza A (H1) PCR Not detected, Influ A (H1N1/09) PCR Not detected, Influenza A (H3) PCR Not detected, Influenza Type A (PCR) Not detected, Influenza Type B (PCR) Not detected, M. pneumoniae (PCR) Not detected, Parainfluenza 1 (PCR) Not detected, Parainfluenza 2 (PCR) Not detected, Parainfluenza 3 (PCR) Not detected, Parainfluenza 4 (PCR) Not detected, RSV (PCR) Not detected, Entero/Rhino (PCR) Not detected I & O for Last 24 hours: Intake & Output 11/12/19 11/13/19 11/14/19 11/15/19 11:59 11:59 11:59 11:59 Intake Total 3434 / 3434 2657 / 2657 2994 / 2994 Output Total 600 / 600 800 / 800 Balance 2834 / 2834 1857 / 1857 2994 / 2994 Weight 146 lb 15.997 oz 138 lb 140 lb Microbiology Reports for the Last 24 Hours: Microbiology 11/11/19 23:05 Urine,Clean Catch Urine Culture - Final NO GROWTH AFTER 48 HOURS 11/11/19 23:05 Blood Blood Culture - Preliminary NO GROWTH AFTER 48 HOURS 11/11/19 23:05 Blood Blood Culture - Preliminary NO GROWTH AFTER 48 HOURS - Constitutional no acute distress, thin - *Routine HEENT Exam Head: Present: normocephalic Eye: Present: PERRL ENT: Present: mucous membranes moist - *Routine Neck Exam Present: supple. Absent: lymphadenopathy - *Routine Respiratory Exam Present: decreased breath sounds, CTA bilaterally - *Routine Cardiovascular Exam Present: RRR - *Routine Abdominal Exam Present: soft, normoactive bowel sounds. Absent: tenderness - *Routine Extremities Exam Present: normal capillary refill. Absent: cyanosis, clubbing, edema - *Routine Skin Exam Present: warm. Absent: rash - *Routine Neurological Exam Present: alert, oriented X3 - Routine Psychiatric Exam Present: normal affect Assessment and Plan (1) Community acquired pneumonia Current visit: Yes Status: Acute Qualifiers: Laterality: right Lung location: lower lobe of lung Qualified Code(s): J18.9 - Pneumonia, unspecified organism Category: Medical Code(s): J18.9 - Pneumonia, unspecified organism (2) Schizophrenia Current visit: Yes Status: Chronic Qualifiers: Schizophrenia type: unspecified Qualified Code(s): F20.9 - Schizophrenia, unspecified Category: Medical Code(s): F20.9 - Schizophrenia, unspecified (3) Tobacco use disorder, continuous Current visit: Yes Status: Chronic Category: Medical Code(s): F17.209 - Nicotine dependence, unspecified, with unspecified nicotine-induced disorders (4) Low body mass index (BMI) Current visit: No Status: Chronic Category: Medical (5) CAD (coronary artery disease) Current visit: No Status: Chronic Qualifiers: Coronary Disease-Associated Artery/Lesion type: [place] artery [place] vs. transplanted heart: [place] heart Associated angina: without angina Qualified Code(s): I25.10 - Atherosclerotic heart disease of [place] coronary artery without angina pectoris Category: Medical Code(s): I25.10 - Atherosclerotic heart disease of [place] coronary artery without angina pectoris (6) HHD (hypertensive heart disease) Current vis
--- NOTE | 2019-11-14 12:39 | HMH.PTEV ---
Physical Therapy Evaluation Rehab PT IP Evaluation Start: 11/14/19 08:41 Freq: .once Status: Active Protocol: Document 11/14/19 12:37 PWMARCELA (Rec: 11/14/19 12:39 PWMARCELA [id number]) Subjective/History History History This is the initial IP PT evaluation for Herberth Blakely. Pt is a 64 y/o male admitteed thru ER for CAP and COVID + Subjective Subjective Pt reports he feels good and is willing to participate Rehab PT IP Eval Objective Appearance Patient Behavior Appropriate,Cooperative Patient Orientation Person,Place,Time Difficulty following instructions none Speech Pattern Clear,Appropriate Ambulation Patient Able to Ambulate Yes Ambulation Observation IP General Gait Pattern Observation No Deviations/Normal Ambulation Distance (feet) 30 Ambulation Assistive Device None Ambulation Ability Independent Balance Ability to Arise Able, w/o using arms Sitting Balance Steady, safe Standing Balance Narrow stance w/o support Dynamic Sitting Balance Ability Normal Dynamic Standing Balance Ability Good Transfers Bed Transfer Ability Independent Chair Transfer Ability Independent Sit to Stand Bed Transfer Ability Independent Sit to Stand Chair Transfer Ability Independent Rehab PT IP prob,goals,plan Problems Date of Evaluation: 11/14/19 Rehab Potential Rehab Potential Innapropriate for Skilled Therapy Discharge Plan PT Discharge Plan DC pt once medically stable snd COVID - G -code Required No Eval Complexity Eval Charge Codes 14009 - Moderate Complexity PHYSICIAN CERTIFICATION: I certify the specified therapy services for Herberth Blakely are required, authorized, and reviewed every 30 days.
--- NOTE | 2019-11-14 14:16 | HMH.DCSUM ---
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 tax- pt with neg covid-19 - pt with progressive weakness with cough with low sat - pt was seen in the ed and was noted to have cap and was admitted with ivf Hospital Course Hospital Course: Laboratory Tests 11/11/19 11/11/19 11/11/19 23:05 23:05 23:05 WBC 9.2 RBC 4.30 L Hgb 13.2 L Hct 38.0 L MCV 88.4 MCH 30.6 MCHC 34.7 RDW 15.2 Plt Count 237 MPV 7.6 Neut % (Auto) 63.3 Lymph % (Auto) 16.9 [place] % (Auto) 14.6 H Eos % (Auto) 5.2 Baso % (Auto) 7.1 H Neut # (Auto) 5.8 Lymph # (Auto) 1.6 [place] # (Auto) 1.3 H Eos # (Auto) 0.5 H Baso # (Auto) 0.7 H Sodium 133 L Potassium 3.7 Chloride 99 Carbon Dioxide 26 Anion Gap 11.7 BUN 14 Creatinine 1.40 H Estimated Creat Clear 51 Estimated GFR 51 L Est GFR ( Amer) 62 Glucose 114 H Lactate Calcium 8.7 Magnesium Total Bilirubin 0.1 L AST 18 ALT 9 L Alkaline Phosphatase 69 Troponin I < 0.01 Total Protein 6.2 L Albumin 3.5 Globulin 2.7 Albumin/Globulin Ratio 1.3 Urine Color Yellow Urine Appearance Clear Urine pH 7.0 Ur Specific [place] 1.025 Urine Protein 2+ Urine Glucose (UA) Negative Urine Ketones Trace Urine Blood Negative Urine Nitrate Negative Urine Bilirubin Negative Urine Urobilinogen 2.0 Ur Leukocyte Esterase Negative Urine WBC 10-20 Ur Squamous Epith Cells 3-5 Ur Renal Epithelial Cell 5-10 Total Valproic Acid Chlamy pneumoniae PCR Adenovirus (PCR) B. pertussis DNA (PCR) Coronavirus OC43 (PCR) Coronavirus HKU1 (PCR) Coronavirus 229E (PCR) COVID-19 PCR Coronavirus NL63 (PCR) Human Metapneumovir PCR Influenza A (H1) PCR Influ A (H1N1/09) PCR Influenza A (H3) PCR Influenza Type A (PCR) Influenza Type B (PCR) M. pneumoniae (PCR) Parainfluenza 1 (PCR) Parainfluenza 2 (PCR) Parainfluenza 3 (PCR) Parainfluenza 4 (PCR) RSV (PCR) Entero/Rhino (PCR) SARS-CoV-2 IgG Ab (Rapid) SARS-CoV-2 IgM Ab (Rapid) 11/11/19 11/11/19 11/11/19 23:05 23:05 23:05 WBC RBC Hgb Hct MCV MCH MCHC RDW Plt Count MPV Neut % (Auto) Lymph % (Auto) [place] % (Auto) Eos % (Auto) Baso % (Auto) Neut # (Auto) Lymph # (Auto) [place] # (Auto) Eos # (Auto) Baso # (Auto) Sodium Potassium Chloride Carbon Dioxide Anion Gap BUN Creatinine Estimated Creat Clear Estimated GFR Est GFR ( Amer) Glucose Lactate 1.3 Calcium Magnesium Total Bilirubin AST ALT Alkaline Phosphatase Troponin I Total Protein Albumin Globulin Albumin/Globulin Ratio Urine Color Urine Appearance Urine pH Ur Specific [place] Urine Protein Urine Glucose (UA) Urine Ketones Urine Blood Urine Nitrate Urine Bilirubin Urine Urobilinogen Ur Leukocyte Esterase Urine WBC Ur Squamous Epith Cells Ur Renal Epithelial Cell Total Valproic Acid 101.3 H* Chlamy pneumoniae PCR Adenovirus (PCR) B. pertussis DNA (PCR) Coronavirus OC43 (PCR) Coronavirus HKU1 (PCR) Coronavirus 229E (PCR) COVID-19 PCR Coronavirus NL63 (PCR) Human Metapneumovir PCR Influenza A (H1) PCR Influ A (H1N1/09) PCR Influenza A (H3) PCR Influenza Type A (PCR) Influenza Type B (PCR) M. pneumoniae (PCR) Parainfluenza 1 (PCR) Parainfluenza 2 (PCR) Parainfluenza 3 (PCR) Parainfluenza 4 (PCR) RSV (PCR) Entero/Rhino (PCR) SARS-CoV-2 IgG Ab (Rapid) Negative SARS-CoV-2 IgM Ab (Rapid) Negative 11/12/19 11/12/19 11/12/19 02:25 05:20 05:20 WBC 7.2 RBC 4.10 L Hgb 12.4 L Hct 37.0 L
--- NOTE | 2019-11-14 16:16 | HMH.SLDYSPHA ---
Speech & Language Evaluation Speech/Language Dysphagia Evaluation Start: 11/14/19 14:22 Freq: ONCE Status: Active Protocol: Document 11/14/19 15:44 VINNY (Rec: 11/14/19 16:15 VINNY [id number]) Dysphagia Assess/Goals/Plan Assessment Date of Evaluation: 11/14/19 Evaluation Type Initial Certification Assessment/Problems r/o aspiration Does Patient Qualify for Service No Qualify/Failure Comment Mr. Blakely did not show and s/s of dysphagia however, due to the lack of dentition it is recommended that Mr. Blakely be placed on mechanical soft diet while he is admitted to hospital. Recommendations PHYSICIAN CERTIFICATION: The specified therapy services are required, authorized, and reviewed every 30 days. Diet Recommendations Mechanical Soft Liquid Type Recommendations Normal/Thin Plan Pt/Guardian verbally ack understanding Yes: RN notified of dx/prognosis/goals G -code Required No Speech & Language HPI Language Primary Language [place] General Information General Current Food Consistancy Regular,Thin Liquids Dentition Edentulous Oxygen Status Room Air Facial Symmetry Symmetrical Patient Orientation Person,Place,Time Ability to Follow Directions Excellent Dysphagia:Food Presentation Evaluation Food Type Pureed,Mechanical Soft,Regular ,Liquid,Pudding Dysphagia Evaluation Summary Mr. Blakely was given the following consistencies: thins via straw and open cup, pudding, pureed, mechanical soft, and regular. No s/s of dysphagia noted. At this time, it is recommended that Mr. Blakely be placed on a mechanical chopped diet with thin liquids due to lack of dentition. Stroke Dysphagia Assessment PHYSICIAN CERTIFICATION: I certify the specified therapy services for Herberth Blakely are required, authorized, and reviewed every 30 days.
[2019-11-14 16:30] LABS: Coronavirus 19 IgG Antibody Negative (Negative); Coronavirus 19 IgM Antibody Negative (Negative)
[2019-11-16 08:41] LABS: Covid-19 Nasal PCR Sendout Lex DETECTED
== END 2019-11-14 15:00 | disposition home or self-care (01) | DRG 177 ==
LOC: ER 23:10 → 2ND 11-12 01:17 → ICU 11-12 10:37
PROVIDERS: Internal Medicine Adolescent Medicine; Admitting Provider Emergency Medicine; Emergency Provider Emergency Medicine; PCP Emergency Medicine; Visit Provider Emergency Medicine
DX: J18.9 Pneumonia, unspecified organism (principal); U07.1 COVID-19; I11.9 Hypertensive heart disease without heart failure; Z72.0 Tobacco use; I25.10 Atherosclerotic heart disease of native coronary artery without angina pectoris; F20.9 Schizophrenia, unspecified; Z79.899 Other long term (current) drug therapy
CPT/HCPCS: 36415; 71045; 80048; 80053; 80164; 81001; 83605; 83735; 84484; 85025; 86328; 87040; 87086; 87581; 87633; 87798; 92610; 93005; 94640; 96365; 96366; 96367; 97162; 99285; J0456; U0004

== ENCOUNTER 2020-10-18 07:07 | Inpatient (IN) | payer MEDICARE, MEDICAID, SELFPAY ==
[2020-10-18] VITALS (16 sets, daily range): BP systolic 96–129; BP diastolic 58–104; PULSE 74–110; RESP 20–26; TEMP 36.1–39.5; O2SAT 85–99; BMI 21.6
--- NOTE | 2020-10-18 07:15 | PC.NURSE ---
Cultures, lactic, rainbow tubes, and Urine specimen walked up to lab due to tube system being down.
--- NOTE | 2020-10-18 07:16 | XR_ITS ---
PROCEDURE: XR CHEST PORTABLE CLINICAL HISTORY: ams COMPARISON: CR Chest from 11/06/[address] chest w con from 12/08/2018 CR XR CHEST 2V from 07/02/2019 CR XR CHEST PORTABLE from 11/12/2019 FINDINGS: The cardiomediastinal silhouette and pulmonary vascularity are within normal limits. Slight increased markings right lower lung zone medially which may be due to vascular crowding. The remaining lungs are clear. No acute bony abnormalities. IMPRESSION: No definite acute finding Dictated by: Yung Oneal MD 10/18/2020 08:50 Yung Oneal MD in [facility] 10/18/2020 08:50
--- NOTE | 2020-10-18 07:20 | CT_ITS ---
PROCEDURE INFORMATION: Exam: CT Head Without Contrast Exam date and time: 10/18/2020 7:20 AM Age: 65 years old Clinical indication: Altered mental status/memory loss; Additional info: AMS TECHNIQUE: Imaging protocol: Computed tomography of the head without contrast. 3D rendering (Not supervised by radiologist): MIP and/or 3D reconstructed images were created by the technologist. Radiation optimization: All CT scans at this facility use at least one of these dose optimization techniques: automated exposure control; mA and/or kV adjustment per patient size (includes targeted exams where dose is matched to clinical indication); or iterative reconstruction. COMPARISON: HEADWO CT head/brain wo con 11/13/2018 10:37 PM There is motion artifact limiting evaluation. FINDINGS: Brain: The brain demonstrates stable mild diffuse volume loss. There is some white matter hypodensity most consistent with chronic small vessel ischemic change. Cerebral ventricles: The ventricles and CSF spaces are proportionately enlarged. Bones/joints: No acute fracture. Paranasal sinuses: Visualized sinuses are unremarkable. No fluid levels. Mastoid air cells: Visualized mastoid air cells are well aerated. Soft tissues: Unremarkable. IMPRESSION: A limited exam due to motion artifact demonstrates no acute intracranial abnormality.
--- NOTE | 2020-10-18 07:20 | PC.NURSE ---
MD Pascual at bedside.
[2020-10-18 07:26] LABS: Microscopic, Urine URINE MICROSCOPIC (MICROSCOPIC)
--- NOTE | 2020-10-18 07:29 | PC.NURSE ---
pt going to rad.
[2020-10-18 07:31] LABS: Appearance,Urine CLEAR (Clear); Bilirubin,Urine Negative (Negative); Blood, Urine Negative (Negative); Color,Urine YELLOW (Yellow); Glucose,Urine (UA) Negative (Negative); Ketones,Urine TRACE (Negative); Leukocyte Esterase,Urine Negative (Negative); Nitrate,Urine Negative (Negative); Protein,Urine Negative (Negative); Urobilinogen,Urine 0.2 EU/dl (0.2)
[2020-10-18 07:34] LABS: Basophils % 0.2 % (0.1-2.0); Eosinophils # 0.5 K/mm3 (0.0-0.4); Eosinophils % 2.3 % (0.1-12.0); Hematocrit 38.9 % (42.0-52.0); Lymphocytes # 1.1 K/mm3 (0.7-4.5); Lymphocytes % 5.7 % (10-50); Mean Corpuscular HGB Conc 33.5 g/dL (31.8-35.4); Mean Corpuscular Hemoglobin 29.4 pg (27.0-31.2); Mean Corpuscular Volume 87.8 fl (80-94); Mean Platelet Volume 7.6 fl (7.4-10.4); Monocytes # 0.8 K/mm3 (0.1-1.0); Neutrophils # 17.2 K/mm3 (1.8-7.8); Neutrophils % 87.8 % (37.0-80.0); Platelet Count 284 K/mm3 (142-424); Red Blood Count 4.43 M/mm3 (4.60-6.20); Red Cell Distribution Width 14.7 % (11.5-17.5); White Blood Count 19.7 K/mm3 (4.8-10.8)
[2020-10-18 07:35] LABS: Alanine Aminotransferase 14 U/L (12-78); Albumin Level 3.8 g/dl (3.5-5.0); Albumin/Globulin Ratio 1.4 (1.1-1.8); Alkaline Phosphatase 81 U/L (38-126); Anion Gap 10.7 mEq/L (5-15); Aspartate Amino Transferase 31 U/L (17-59); Bilirubin,Total 0.4 mg/dl (0.2-1.3); Blood Urea Nitrogen 11 mg/dl (9-20); Calcium 9.1 mg/dl (8.4-10.2); Carbon Dioxide 28 mmol/L (22.0-30.0); Chloride 98 mmol/L (98-107); Creatinine Clearance Estimated 72 mL/min (50-200); Estimated Glomerular Filt Rate 75 ml/min (>60); GFR (African American) 90 ML/MIN (>60); Globulin 2.8 g/dL (1.3-3.2); Glucose 109 mg/dl (74-100); Potassium 4.7 mmoL/L (3.5-5.1); Sodium 132 mmol/L (136-145); Total Protein,Serum 6.6 g/dl (6.3-8.2)
[2020-10-18 07:38] LABS: MANUAL DIFFERENTIAL MANUAL DIFFERENTIAL (MANUAL DIFF)
[2020-10-18 07:39] LABS: Ethyl Alcohol < 10 mg/dl (0-10)
[2020-10-18 07:40] LABS: C-Reactive Protein 12.8 mg/L (0-4)
--- NOTE | 2020-10-18 07:42 | PC.NURSE ---
pt returning from rad.
[2020-10-18 07:43] LABS: Barbiturates Screen,Urine Negative ng/ml (<200)
[2020-10-18 07:44] LABS: Amphetamine/Metha Screen,Urine Negative ng/ml (<1000); Benzodiazepines Screen,Urine Negative ng/ml (<200)
[2020-10-18 07:47] LABS: RBC,Urine Occasional #/hpf (0-3); Squamous Epithelial Cell,Urine Occasional #/hpf (0-5)
[2020-10-18 07:47] LABS: Cannabinoid Screen,Urine Negative ng/ml (<50); Cocaine Screen,Urine Negative ng/ml (<300)
--- NOTE | 2020-10-18 07:47 | HMH.EDAMS ---
ED Disposition Clinical Impression: SIRS (systemic inflammatory response syndrome), Tobacco use disorder, continuous, COPD exacerbation, Acute delirium CAP (community acquired pneumonia) Qualifiers: Laterality: right Lung location: lower lobe of lung Qualified Code(s): J18.9 - Pneumonia, unspecified organism Schizophrenia Qualifiers: Schizophrenia type: unspecified Qualified Code(s): F20.9 - Schizophrenia, unspecified Disposition: Admitted As Inpatient Condition on Discharge: Good Instructions: DI for Altered Mental Status Referrals: Olman Pascual MD [Primary Care Provider] - - Critical Care Critical Care Time: No Attestation: On 10/18/20, the high probability of a clinically significant, sudden or life threatening deterioration of the following system(s) required my full and direct attention, intervention and personal management. The time I documented below is in addition to time spent performing reported procedures but includes the following listed in this critical care notation. Medical Decision Making - Medical Records Medical records reviewed: Yes: I reviewed the patient's medical records. - [place] Inquiry Pt receiving controlled substance: No Vital Signs: 10/18/20 07:07 10/18/20 07:21 Temperature 103.1 F H Temperature Source Rectal Pulse Rate [Radial] 105 H Respiratory Rate 22 22 Blood Pressure 128/104 H Blood Pressure [Right Arm] 122/80 Blood Pressure Mean 112 Blood Pressure Mean [Right Arm] 94 Blood Pressure Position [Right Arm] Sitting 02 Sat by Pulse Oximetry 98 Oxygen Delivery Method Room Air - Lab Data Lab results reviewed: Yes: I reviewed the patient's lab results. Lab Results 10/18/20 07:05: WBC 19.7 H, RBC 4.43 L, Hgb 13.0 L, Hct 38.9 L, MCV 87.8, MCH 29.4, MCHC 33.5, RDW 14.7, Plt Count 284, MPV 7.6, Neut % (Auto) 87.8 H, Lymph % (Auto) 5.7 L, [place] % (Auto) 4.0, Eos % (Auto) 2.3, Baso % (Auto) 0.2, Neut # (Auto) 17.2 H, Lymph # (Auto) 1.1, [place] # (Auto) 0.8, Eos # (Auto) 0.5 H, Baso # (Auto) 0.0 10/18/20 07:05: Sodium 132 L, Potassium 4.7, Chloride 98, Carbon Dioxide 28, Anion Gap 10.7, BUN 11, Creatinine 1.00, Estimated Creat Clear 72, Estimated GFR 75, Est GFR ( Amer) 90, Glucose 109 H, Calcium 9.1, Total Bilirubin 0.4, AST 31, ALT 14, Alkaline Phosphatase 81, C-Reactive Protein 12.8 H, Total Protein 6.6, Albumin 3.8, Globulin 2.8, Albumin/Globulin Ratio 1.4 10/18/20 07:05: Lactate 1.0 10/18/20 07:05: Plasma/Serum Alcohol < 10 10/18/20 07:14: Urine Color Yellow, Urine Appearance Clear, Urine pH 7.0, Ur Specific [place] 1.020, Urine Protein Negative, Urine Glucose (UA) Negative, Urine Ketones Trace, Urine Blood Negative, Urine Nitrate Negative, Urine Bilirubin Negative, Urine Urobilinogen 0.2, Ur Leukocyte Esterase Negative Result diagrams: 10/18/20 07:05 10/18/20 07:05 Orders (Tests/Meds): ED MEDICATIONS Generic Name Dose Route Start Last Admin Trade Name Freq PRN Reason Stop Dose Admin Sodium Chloride 1,000 mls @ 999 mls/hr 10/18/20 07:30 10/18/20 07:23 Sod Chlor 0.9% 1000ml Bag IV 10/18/20 08:30 999 mls/hr .Q1H1M HUNTER Administration Sodium Chloride 10 ml 10/18/20 07:23 Sodium Chloride 0.9% 10ml Vial IV 11/17/20 07:22 NEEDED PRN to Dilute Lorazepam inj Discontinued Medications Generic Name Dose Route Start Last Admin Trade Name Freq PRN Reason Stop Dose Admin Acetaminophen 650 mg 10/18/20 07:22 10/18/20 07:23 Acetaminophen 650mg Suppository RC 10/18/20 07:23 650 mg ONCE ONE Administration Lorazepam 1 mg 10/18/20 07:23 10/18/20 07:24 Lorazepam 2mg/Ml Vial IV 10/18/20 07:24 1 mg ONCE ONE Administration ORDERS Category Date Time Status CT head/brain wo con Stat Cat Scan 10/18/20 07:20 Taken XR chest portable Stat Exams 10/18/20 07:16 Taken CMP [Comprehensive Metabolic Panel] Stat Lab 10/18/20 07:05 Results CRP [C-Reactive Protein] Stat Lab 10/18/20 07:05 Results Complete
[2020-10-18 07:48] LABS: Methadone Screen,Urine Negative ng/ml (<300); Opiate Screen,Urine Negative ng/ml (<300)
[2020-10-18 07:49] LABS: Phencyclidine Screen,Urine Negative ng/ml (<25)
[2020-10-18 07:52] LABS: Procalcitonin 0.054 ng/mL (0.0-2.0)
[2020-10-18 08:04] LABS: Erythrocyte Sedimentation Rate 13 mm/hr (0-20)
--- NOTE | 2020-10-18 08:06 | PC.NURSE ---
Lab called to advise they suspect something is wrong with the analyzer for full resp panels. They requested to change the order to a stand alone COVID. MD Pascual approved order. DEE DEE Ledesma also notified of change.
[2020-10-18 08:16] LABS: Lymphocytes % 6 % (10-50); Monocytes % 1 % (2-9); Neutrophils % 93 % (42-76); Platelet Estimate Normal; RBC Morphology Normal; Total Cells Counted 100
[2020-10-18 08:21] LABS: Troponin I < 0.01 ng/ml (0.00-0.034)
--- NOTE | 2020-10-18 09:56 | PC.NURSE ---
Krystle Nix speaking with Marcella in lab to follow up on COVID swab.
--- NOTE | 2020-10-18 09:56 | PC.NURSE ---
12 min ETA on Covid swab per Cristal in the lab.
--- NOTE | 2020-10-18 11:00 | PC.NURSE ---
pt confused. c/o harpal
--- NOTE | 2020-10-18 11:05 | PC.NURSE ---
lab at bedside.
--- NOTE | 2020-10-18 11:37 | PC.NURSE ---
attempted to call report no answer told to return call
[2020-10-18 11:42] LABS: Troponin I < 0.01 ng/ml (0.00-0.034)
--- NOTE | 2020-10-18 11:53 | PC.NURSE ---
Report given to Kristen FUNEZ
--- NOTE | 2020-10-18 12:10 | PC.NURSE ---
pt incontinent of stool. pt clean linens changed.
--- NOTE | 2020-10-18 12:35 | SW/DCPLANNER ---
Addendum entered by Gina Stratton 10/22/20 10:05: [facility] has been arranged for this patient. ID#[id number] Addendum entered by Gina Stratton 10/22/20 09:09: Per Yumiko no further COVID testing is needed at this time. I will arrange [facility] once ready to go back to [facility]. Addendum entered by Gina Stratton 10/22/20 08:43: This patient will discharge back to [facility] today. I will inform Tl/Yumiko and ask if patient will need another COVID swab prior to returning. I will set up [facility] [employer] once patient is ready for discharge today. Original Note: This patient currently resides at [facility]. I have spoke with Yumiko from [facility]: stated that patient ambulates independently around town and is very friendly. I will continue to follow up with [facility] until patient is medically stable for discharge.
--- NOTE | 2020-10-18 12:38 | HMH.HP ---
*Admission Date: 10/18/20 *Chief complaint: ams *History of present illness: 65 yr old male presented to ed from half-way for ams, pt awake, confused, will not answer questions or follow commands. fever 103,ams, and no answering questions when asked. Pt admitted for pneumonia and consult pulm. pt has hx copd,smoker and schizophrenia. [facility] History I have reviewed the patient's past medical history: Yes Medical History: Reports:: Anxiety, Coronary Artery Disease, Depression, Hypertension Denies:: Cancer, Diabetes Mellitus Type 1, Diabetes Mellitus Type 2, MRSA *Have you ever received a pneumonia vaccine?: No *Have you received a flu vaccine this season?: Yes Other Medical History: Reports: Anemia Other Surgeries: Yes: No Previous Surgery Amputation: No Fractures: No - *Social History Smoking Status: Current every day smoker Tobacco Type: cigarettes # Packs/Day (cigarettes): 1 Alcohol Intake: never Substance Use Type: crack/cocaine *Occupational Status:: disabled Housing: assisted living facility Household Members: other *Travel in the last 8 weeks: None - Psychiatric History Pschychiatric History:: Reports:: Anxiety, Depression Family Hx:: Unable to obtain Review of Systems - Review of Systems Review of systems:: unable to obtain - *Neurologic Reports confusion, Reports other, Denies localized weakness, Denies seizure-like activity Meds Home Medications Medication Instructions Recorded Confirmed Type Divalproex Sodium 750 mg PO BID 05/22/18 10/18/20 History Tamsulosin HCl [Flomax 0.4mg 0.4 mg PO DAILY 05/22/18 10/18/20 History capsule] Docusate Sodium [Docusate Sodium 200 mg PO BID 06/29/18 10/18/20 History 100mg Cap] Acetaminophen [Acetaminophen 325mg 325 mg PO Q6H PRN 11/12/19 10/18/20 History tab] ARIPiprazole [Abilify Maintena 400 mg IM DIRECTED 10/18/20 10/18/20 History 400mg Inj] Benztropine Mesylate 0.5 mg PO HS 10/18/20 10/18/20 History Buspirone HCl [Buspirone 7.5mg 7.5 mg PO BID 10/18/20 10/18/20 History tablets] Magnesium Hydroxide [Milk of 10 ml PO Q6 PRN 10/18/20 10/18/20 History Magnesia] OLANZapine [Zyprexa] 10 mg PO TID 10/18/20 10/18/20 History Propranolol HCl [Inderal 20mg 20 mg PO TID 10/18/20 10/18/20 History Tablet] cloZAPine [Clozapine] 600 mg PO HS 10/18/20 10/18/20 History hydrOXYzine pamoate [Vistaril 25mg 25 mg PO QID PRN 10/18/20 10/18/20 History capsule] Allergies Allergy/AdvReac Type Severity Reaction Status Date / Time No Known Allergies Allergy Verified 12/06/18 13:32 Exam Vital signs and Labs for Last 24 Hours: Temp Pulse Resp BP Pulse Ox 103.1 F H 92 H 26 H 100/64 L 99 10/18/20 07:07 10/18/20 11:07 10/18/20 08:30 10/18/20 11:07 10/18/20 11:07 Laboratory Results - last 24 hr 10/18/20 07:05: WBC 19.7 H, RBC 4.43 L, Hgb 13.0 L, Hct 38.9 L, MCV 87.8, MCH 29.4, MCHC 33.5, RDW 14.7, Plt Count 284, MPV 7.6, Neut % (Auto) 87.8 H, Lymph % (Auto) 5.7 L, [place] % (Auto) 4.0, Eos % (Auto) 2.3, Baso % (Auto) 0.2, Neut # (Auto) 17.2 H, Lymph # (Auto) 1.1, [place] # (Auto) 0.8, Eos # (Auto) 0.5 H, Baso # (Auto) 0.0, Total Counted 100, Neutrophils % (Manual) 93 H, Lymphocytes % (Manual) 6 L, Monocytes % (Manual) 1 L, Platelet Estimate Normal, RBC Morphology Normal 10/18/20 07:05: Sodium 132 L, Potassium 4.7, Chloride 98, Carbon Dioxide 28, Anion Gap 10.7, BUN 11, Creatinine 1.00, Estimated Creat Clear 72, Estimated GFR 75, Est GFR ( Amer) 90, Glucose 109 H, Calcium 9.1, Total Bilirubin 0.4, AST 31, ALT 14, Alkaline Phosphatase 81, C-Reactive Protein 12.8 H, Total Protein 6.6, Albumin 3.8, Globulin 2.8, Albumin/Globulin Ratio 1.4, Procalcitonin 0.054 10/18/20 07:05: Lactate 1.0 10/18/20 07:05: ESR 13 10/18/20 07:05: Plasma/Serum Alcohol < 10 10/18/20 07:05: Troponin I < 0.01 10/18/20 07:06: Urine Opiates Screen Negative, Urine Methadone Screen Negative, Ur Barbituates Screen Negative, Ur Phencyclidine Scrn Negative, Ur Am
--- NOTE | 2020-10-18 12:43 | PC.NURSE ---
urinary output 1000cc
--- NOTE | 2020-10-18 12:45 | PC.NURSE ---
Pt arrived to the floor at this time
--- NOTE | 2020-10-18 13:04 | CA_ITS ---
APPROVED REPORT EXAM: Comprehensive 2D, Doppler, and color-flow Echocardiogram Form Raiser: Kareen Mulligan RVT Ht: 5 ft 11 in Wt: 155lbs BSA: 1.89 BP: 100/64 mmHg Indications: MURMUR,COPD,CAD,SMOKER,HTN,HLD,HX OF CRACK/COCAINE USE TDS-PT FLAT ON BACK SNORING 2D Dimensions LVOT 2.06 cm (M/F) 1.5-2.5 M-Mode Dimensions RVDd 3.87 cm (0.9-2.6) LA Diam 3.49 cm (1.9-4.0) LVDd 4.02 cm (3.5-5.7) Ao Diam 3.32 cm (2.0-3.7) LVDs 2.43 cm (3.5-5.7) IVSd 0.84 cm (0.6-1.1) PWd 0.91 cm (0.6-1.1) EF (Teich) 70.60% FS 39.60% EDV (Teich) 70.80 mL TAPSE 1.98 (<1.7) ESV (Teich) 20.80 mL LV Diastology E Decel Time 283.00 (160-240 msec) E/A Ratio 0.7 Aortic Valve AO Peak GR. 6.40 mmHg Mitral Valve MV E Max Justin. 69.00 (40-130 cm/s) MV A Velocity 105.00 (40-130 cm/s) E/A Ratio 0.65 MV Decel. Time 283.00 (160-240 ms) MV PHT 83.00 ms Tricuspid Valve TR P. Velocity 246.00 cm/s RAP Estimate 10.00 mmHg RVSP 34.30 mmHg Left Ventricle Left atrium is mildly enlarged, left ventricle is normal size, mild concentric left ventricular hypertrophy, visually estimated ejection fraction 55% with no regional wall motion abnormality, Doppler evidence of impaired LV relaxation seen, there is no tissue Doppler performed. Right Ventricle Right atrium and right ventricular mildly enlarged with normal contractility. Aortic Valve Aortic valve is minimally thickened and fibrosed, there is no aortic stenosis or aortic insufficiency. Mitral Valve Mitral valve is grossly normal, there is trace mitral regurgitation. Tricuspid Valve Tricuspid grossly normal, there is trace tricuspid regurgitation, tricuspid regurgitation jet velocity is inadequate for calculation of the right ventricular systolic pressure. Pulmonic Valve Pulmonic valve is poorly visualized. Great Vessels Aortic root is normal size. Pericardium No significant pericardial effusion noted. Conclusion 1. Mild biatrial enlargement, normal left ventricular size, preserved left ventricular systolic function, visually estimated ejection fraction 55% with no regional wall motion abnormality, Doppler evidence of impaired LV relaxation seen, there is no tissue Doppler performed. 2. Mildly enlarged right ventricle with normal contractility. 3. Trace mitral and tricuspid regurgitation. 4. No significant pericardial effusion noted. Electronically signed by : Jamal Curran, 10/18/2020 17:13:20
--- NOTE | 2020-10-18 13:09 | P.CONPHA_ITS ---
[facility] Pharmacy VTE Monitoring - Patient Demographics Admission date: 10/18/20 Report Date: 10/18/20 Time: 13:09 Allergies/Adverse Reactions: Patient Allergies No Known Allergies Allergy (Verified 12/06/18 13:32) Height: 1.8 m Weight: 70.307 kg Patient Problems: Current Active Problems Schizophrenia (Chronic) Community acquired pneumonia (Acute) COPD exacerbation (Acute) SIRS (systemic inflammatory response syndrome) (Acute) Acute delirium (Acute) Tobacco use disorder, continuous (Chronic) - VTE Risk Labs: VTE Related Lab Results Hgb 13.0 g/dL (14.1-18.0) L 10/18/20 07:05 Hct 38.9 % (42.0-52.0) L 10/18/20 07:05 Plt Count 284 K/mm3 (142-424) 10/18/20 07:05 BUN 11 mg/dl (9-20) 10/18/20 07:05 Creatinine 1.00 mg/dl (0.66-1.25) 10/18/20 07:05 Estimated Creat Clear 72 mL/min (50-200) 10/18/20 07:05 Clinical Trial Participant: No - Prophylaxis VTE Prophylaxis Ordered?: Yes Types of VTE Prophylaxis: TEDS Knee High
--- NOTE | 2020-10-18 14:29 | PC.NURSE ---
Pt to floor approx 1400. Called [facility] and in RE to aug and they stated they had faxed to pharmacy, Natalie in pharm stated they had.
[2020-10-18 14:55] LABS: Troponin I < 0.01 ng/ml (0.00-0.034)
--- NOTE | 2020-10-18 16:48 | HMH.PULMCON ---
*Admission Date: 10/18/20 *Reason for consult:: Community-acquired pneumonia *History of present illness: 65-year-old male [facility] resident with a prior history of schizophrenia COPD previous smoker was presented to the hospital complaining of fever and altered mentation has been admitted to the hospital for pneumonia and pulmonary was called for further management. [facility] History Medical History: Reports:: Anxiety, Coronary Artery Disease, Depression, Hypertension Denies:: Cancer, Diabetes Mellitus Type 1, Diabetes Mellitus Type 2, MRSA *Have you ever received a pneumonia vaccine?: No *Have you received a flu vaccine this season?: Yes Other Medical History: Reports: Anemia Other Surgeries: Yes: No Previous Surgery Amputation: No Fractures: No - *Social History Smoking Status: Current every day smoker Tobacco Type: cigarettes # Packs/Day (cigarettes): 1 Alcohol Intake: never Substance Use Type: crack/cocaine *Occupational Status:: disabled Housing: assisted living facility Household Members: other *Travel in the last 8 weeks: None - Psychiatric History Pschychiatric History:: Reports:: Anxiety, Depression Family Hx:: Unable to obtain ROS - Review of Systems Review of systems:: unable to obtain Patient has present just received Ativan and he is not following commands. Only arousable to painful stimuli. Unable to perform review of systems. Meds Home Medications Medication Instructions Recorded Confirmed Type Divalproex Sodium 750 mg PO BID 05/22/18 10/18/20 History Tamsulosin HCl [Flomax 0.4mg 0.4 mg PO DAILY 05/22/18 10/18/20 History capsule] Docusate Sodium [Docusate Sodium 200 mg PO BID 06/29/18 10/18/20 History 100mg Cap] Acetaminophen [Acetaminophen 325mg 325 mg PO Q6H PRN 11/12/19 10/18/20 History tab] ARIPiprazole [Abilify Maintena 400 mg IM DIRECTED 10/18/20 10/18/20 History 400mg Inj] Benztropine Mesylate 0.5 mg PO HS 10/18/20 10/18/20 History Buspirone HCl [Buspirone 7.5mg 7.5 mg PO BID 10/18/20 10/18/20 History tablets] Magnesium Hydroxide [Milk of 10 ml PO Q6 PRN 10/18/20 10/18/20 History Magnesia] OLANZapine [Zyprexa] 10 mg PO TID 10/18/20 10/18/20 History Propranolol HCl [Inderal 20mg 20 mg PO TID 10/18/20 10/18/20 History Tablet] cloZAPine [Clozapine] 600 mg PO HS 10/18/20 10/18/20 History hydrOXYzine pamoate [Vistaril 25mg 25 mg PO QID PRN 10/18/20 10/18/20 History capsule] Allergies Allergy/AdvReac Type Severity Reaction Status Date / Time No Known Allergies Allergy Verified 12/06/18 13:32 Exam - Constitutional Constitutional:: Present: no acute distress, comfortable - HENMT Exam HENMT: Present: normocephalic - Neck Exam Neck:: Present: normal visual inspection - Respiratory Exam Respiratory:: Present: no respiratory distress, crackles. Absent: accessory muscle use - Cardiovascular Exam Cardiac:: Present: S1, S2 - GI Exam GI:: Present: soft - Skin Exam Skin: Present: warm, no rash - Neurological Exam Neurological: Absent: alert, awake, normal cognition - Extremities Exam Extremities: Present: no cyanosis, no clubbing, no edema Internal Medicine - CN: Reslt - Labs CBC & Chem 7: 10/18/20 07:05 10/18/20 07:05 Labs: Short CBC 10/18/20 Range/Units 07:05 WBC 19.7 H (4.8-10.8) K/mm3 Hgb 13.0 L (14.1-18.0) g/dL Hct 38.9 L (42.0-52.0) % Plt Count 284 (142-424) K/mm3 [facility] 10/18/20 07:05 Sodium 132 L Potassium 4.7 Chloride 98 Carbon Dioxide 28 BUN 11 Creatinine 1.00 Glucose 109 H Calcium 9.1 Cardiac Enzymes 10/18/20 10/18/20 10/18/20 Range/Units 07:05 11:05 14:00 Troponin I < 0.01 < 0.01 < 0.01 (0.00-0.034) ng/ml Liver Function 10/18/20 Range/Units 07:05 Total Bilirubin 0.4 (0.2-1.3) mg/dl AST 31 (17-59) U/L ALT 14 (12-78) U/L Alkaline Phosphatase 81 (38-126) U/L Albumin 3.8 (3.5-5.0) g/dl Urine 10/18/20 Range/Uni
[2020-10-18 17:36] LABS: ABG Base Excess -0.3 mmol/L (-2.4-2.3); ABG HCO3 24.7 mmhg (22.0-26.0); ABG Oxygen Saturation 97 % (90-100); ABG PH 7.39 mmol/L (7.35-7.45); ABG PO2 85.5 mmhg (80-100)
[2020-10-18 17:41] LABS: Allen's Test Non Applicable; Oxygen 2 %; Source Right Brachial
--- NOTE | 2020-10-18 20:28 | PC.NURSE ---
Pt is a very poor historian and was this RN had limited info for pts admission. Pt remains on 2 L NC at this time. CB in reach. Bed alarm on pt r/t safety purposes. S1,S2, Lungs crackles and congested. Abd soft and bs x 4 hypoactive. Pt did have a lg bm this shift. Pt has slept this afternoon. VSS. Pt is still altered mentally.
[2020-10-19] VITALS (10 sets, daily range): BP systolic 113–121; BP diastolic 59–66; PULSE 77–109; RESP 18–21; TEMP 36.5–36.7; O2SAT 94–100
--- NOTE | 2020-10-19 04:51 | PC.NURSE ---
pt has rested intermittently t/o shift, remains on 2L NC with O2 sats 96-97%, fine crackles noted on auscultation, holguin remains in place with clear, yellow urine noted, safety alarm remains on, has been able to answer orientation questions but does have moments of confusion
--- NOTE | 2020-10-19 05:33 | PC.NURSE ---
pt is currently on room air with O2 sats 96-97%
[2020-10-19 06:01] LABS: Basophils % 0.1 % (0.1-2.0); Eosinophils % 0.1 % (0.1-12.0); Hematocrit 36.3 % (42.0-52.0); Hemoglobin 12.2 g/dL (14.1-18.0); Lymphocytes % 3.2 % (10-50); Mean Corpuscular HGB Conc 33.5 g/dL (31.8-35.4); Mean Corpuscular Hemoglobin 29.7 pg (27.0-31.2); Mean Corpuscular Volume 88.7 fl (80-94); Mean Platelet Volume 8.3 fl (7.4-10.4); Monocytes # 0.8 K/mm3 (0.1-1.0); Monocytes % 2.7 % (1.7-9.3); Neutrophils # 28.4 K/mm3 (1.8-7.8); Platelet Count 235 K/mm3 (142-424); Red Blood Count 4.09 M/mm3 (4.60-6.20); Red Cell Distribution Width 14.9 % (11.5-17.5); White Blood Count 30.2 K/mm3 (4.8-10.8)
[2020-10-19 06:08] LABS: Anion Gap 7.8 mEq/L (5-15); Blood Urea Nitrogen 11 mg/dl (9-20); Calcium 8.5 mg/dl (8.4-10.2); Carbon Dioxide 26 mmol/L (22.0-30.0); Chloride 104 mmol/L (98-107); Creatinine Clearance Estimated 72 mL/min (50-200); Estimated Glomerular Filt Rate 135 ml/min (>60); GFR (African American) 163 ML/MIN (>60); Glucose 181 mg/dl (74-100); Potassium 3.8 mmoL/L (3.5-5.1); Sodium 134 mmol/L (136-145)
[2020-10-19 06:29] LABS: MANUAL DIFFERENTIAL MANUAL DIFFERENTIAL (MANUAL DIFF)
[2020-10-19 07:29] LABS: Lactate Arterial 0.7 mmol/L (0.4-2.0)
[2020-10-19 08:37] LABS: Adenovirus,PCR Not Detected (NotDetected); Bordetella Pertussis Not Detected (NotDetected); Chlamydophila Pneumoniae, PCR Not Detected (NotDetected); Coronavirus 229E Not Detected (NotDetected); Coronavirus NL63 Not Detected (NotDetected); Coronavirus OC43 Not Detected (NotDetected); Coronovirus HKU1,PCR Not Detected (NotDetected); Human Metapneumovirus Not Detected (NotDetected); Influenza A, PCR Not Detected (NotDetected); Influenza AH1, 2009 Not Detected (NotDetected); Influenza AH1, PCR Not Detected (NotDetected); Influenza AH3,PCR Not Detected (NotDetected); Influenza B, PCR Not Detected (NotDetected); Mycoplasma Pneumoniae, PCR Not Detected (NotDetected); Parainfluenza 1, PCR Not Detected (NotDetected); Parainfluenza 2, PCR Not Detected (NotDetected); Parainfluenza 3, PCR Not Detected (NotDetected); Parainfluenza 4, PCR Not Detected (NotDetected); Respiratory Syncytial Virus Not Detected (NotDetected); Rhinovirus/Enterovirus Not Detected (NotDetected)
[2020-10-19 08:50] LABS: Lymphocytes % 5 % (10-50); Monocytes % 5 % (2-9); Neutrophils % 90 % (42-76); Platelet Estimate Normal; RBC Morphology Normal; Total Cells Counted 100
--- NOTE | 2020-10-19 08:56 | HMH.PHAINT ---
MEDICATION RECONCILIATION COMPLETED ON PATIENT USING MAR FROM [facility] AND CALL TO [facility]. -LULU LUTHER, FIDELIAD
--- NOTE | 2020-10-19 10:12 | HMH.ACPN2 ---
Internal Medicine - PN: Subj *Date: 10/19/20 *Time: 08:30 Interval history: pt alert and talkative this am. pt states he feels much better today. Exam Vital signs and Labs for Last 24 Hours: Temp Pulse Resp BP Pulse Ox 97.8 F 109 H 21 121/59 L 95 10/19/20 08:00 10/19/20 08:00 10/19/20 08:00 10/19/20 08:00 10/19/20 08:00 Laboratory Results - last 24 hr 10/18/20 11:05: Troponin I < 0.01 10/18/20 14:00: Troponin I < 0.01 10/18/20 16:56: ABG Lactate 0.7 10/18/20 16:56: Specimen Source Right brachial, O2 % 2, ABG pH 7.39, ABG pCO2 42.0, ABG pO2 85.5, ABG HCO3 24.7, ABG Total CO2 26.0, ABG O2 Saturation 97, ABG Base Excess -0.3, Yung Test Non applicable 10/19/20 05:25: WBC 30.2 H* D, RBC 4.09 L, Hgb 12.2 L, Hct 36.3 L, MCV 88.7, MCH 29.7, MCHC 33.5, RDW 14.9, Plt Count 235, MPV 8.3, Neut % (Auto) 94.0 H, Lymph % (Auto) 3.2 L, [place] % (Auto) 2.7, Eos % (Auto) 0.1, Baso % (Auto) 0.1, Neut # (Auto) 28.4 H, Lymph # (Auto) 1.0, [place] # (Auto) 0.8, Eos # (Auto) 0.0, Baso # (Auto) 0.0, Total Counted 100, Neutrophils % (Manual) 90 H, Lymphocytes % (Manual) 5 L, Monocytes % (Manual) 5, Platelet Estimate Normal, RBC Morphology Normal 10/19/20 05:25: Sodium 134 L, Potassium 3.8, Chloride 104, Carbon Dioxide 26, Anion Gap 7.8, BUN 11, Creatinine 0.60 L D, Estimated Creat Clear 72, Estimated GFR 135, Est GFR ( Amer) 163 D, Glucose 181 H D, Calcium 8.5 10/19/20 05:25: Magnesium 2.0 10/19/20 08:25: Chlamy pneumoniae PCR Not detected, Adenovirus (PCR) Not detected, B. pertussis DNA (PCR) Not detected, Coronavirus OC43 (PCR) Not detected, Coronavirus HKU1 (PCR) Not detected, Coronavirus 229E (PCR) Not detected, Coronavirus NL63 (PCR) Not detected, Human Metapneumovir PCR Not detected, Influenza A (H1) PCR Not detected, Influ A (H1N1/09) PCR Not detected, Influenza A (H3) PCR Not detected, Influenza Type A (PCR) Not detected, Influenza Type B (PCR) Not detected, M. pneumoniae (PCR) Not detected, Parainfluenza 1 (PCR) Not detected, Parainfluenza 2 (PCR) Not detected, Parainfluenza 3 (PCR) Not detected, Parainfluenza 4 (PCR) Not detected, RSV (PCR) Not detected, Entero/Rhino (PCR) Not detected I & O for Last 24 hours: Intake & Output 10/16/20 10/17/20 10/18/20 10/19/20 11:59 11:59 11:59 11:59 Intake Total 1901 / 1901 Output Total 2285 / 2285 Balance -384 / -384 Weight 155 lb Microbiology Reports for the Last 24 Hours: Microbiology 10/18/20 07:14 Blood Blood Culture - Preliminary 10/18/20 07:14 Blood Blood Culture - Preliminary 10/18/20 07:28 Nasopharyngeal Coronavirus COVID-19 PCR - Final - Constitutional no acute distress - *Routine HEENT Exam Head: Present: normocephalic Eye: Present: PERRL ENT: Present: mucous membranes moist - *Routine Neck Exam Present: supple. Absent: lymphadenopathy - *Routine Respiratory Exam Present: rhonchi - *Routine Cardiovascular Exam Present: RRR - *Routine Abdominal Exam Present: soft, normoactive bowel sounds. Absent: tenderness - *Routine Extremities Exam Present: normal capillary refill. Absent: cyanosis, clubbing, edema - *Routine Skin Exam Present: warm. Absent: rash - *Routine Neurological Exam Present: alert - Routine Psychiatric Exam Present: normal affect Assessment and Plan (1) Acute delirium Status: Acute Category: Medical Code(s): R41.0 - Disorientation, unspecified (2) COPD exacerbation Status: Acute Category: Medical Code(s): J44.1 - Chronic obstructive pulmonary disease with (acute) exacerbation (3) Schizophrenia Status: Chronic Qualifiers: Schizophrenia type: unspecified Qualified Code(s): F20.9 - Schizophrenia, unspecified Category: Medical Code(s): F20.9 - Schizophrenia, unspecified (4) Tobacco use disorder, continuous Status: Chronic Category: Medical Code(s): F17.209 - Nicotine dependence, unspecified, with unspecified nicotine-induced disorders - Assessment and plan all D
--- NOTE | 2020-10-19 14:17 | P.PN_ITS ---
Internal Medicine - PN: Subj *Date: 10/19/20 *Time: 14:17 Interval history: No acute respiratory events overnight. Patient weaned to room air. No respiratory complaints this morning. Exam - Constitutional Constitutional:: Present: no acute distress, comfortable - HENMT Exam HENMT: Present: normocephalic, atraumatic - Eye Exam Eyes:: Present: normal appearance both eyes and related structures - Neck Exam Neck:: Present: normal visual inspection - Respiratory Exam Respiratory:: Present: able to speak in complete sentences, lungs clear, normal breath sounds. Absent: crackles, wheezing - Cardiovascular Exam Cardiac:: Present: S1, S2 - GI Exam GI:: Present: soft - Skin Exam Skin: Present: warm, no rash, dry - Neurological Exam Neurological: Present: alert, awake, normal cognition - Extremities Exam Extremities: Present: no cyanosis, no clubbing, no edema Assessment and Plan (1) Acute delirium Status: Acute Category: Medical Code(s): R41.0 - Disorientation, unspecified (2) COPD exacerbation Status: Acute Category: Medical Code(s): J44.1 - Chronic obstructive pul monary disease with (acute) exacerbation (3) Schizophrenia Status: Chronic Qualifiers: Schizophrenia type: unspecified Qualified Code(s): F20.9 - Schizophrenia, unspecified Category: Medical Code(s): F20.9 - Schizophrenia, unspecified (4) Tobacco use disorder, continuous Status: Chronic Category: Medical Code(s): F17.209 - Nicotine dependence, un specified, with unspecified nicotine-induced disorders - Assessment and plan all Dx Assessment and Plan for all problems:: #Community-acquired pneumonia: 65-year-old previous smoker carries a diagnosis COPD presented to hospital with fever and leukocytosis x-ray showed bilateral lower lobe pulmonary infiltrates concerning for community-acquired pneumonia. Mentation significantly improved today - engaging in meaningful cnversation. Resp status improved on RA with no distress. UA WNL. Leucocytosis worsening. BC growing Gm +ve bacili in both bottles and given worsening leucocytosis, will assume infectivity untill further speciation or clinical improvement. Plan: - Consider Broaden Abx to Vanc and Zosyn untill final cultures. - Follow blood cultures, sputum cultures and urine analysis with reflex culture. - DuoNebs every 6 hours scheduled. - OXYGEN supplementation via nasal goal to maintain oxygen saturations of 88 to 92%. # Thank you for involving pulmonary in patient care. Will continue to follow.
--- NOTE | 2020-10-19 18:00 | PC.NURSE ---
Pt has been pleasant and somewhat cooperative this shift. A&O X4. No complaints of pain or SOA. Pt is on room air with sats. >90%. Lung sounds reveal fine crackles. No edema noted. Skin is C/D/I. F/C was D/C'd this AM and pt uses the urinal to void clear, yellow urine without issue. No BM this shift. Pt was encouraged on multiple occasions today to get OOB, sit up in the recliner, and to shower. Pt refused and has remained in bed all day. 18 G peripheral IV in the LT AC is patent and infusing NS @ 100 ML/HR. VSS. Call light within reach. Will continue to monitor.
[2020-10-20] VITALS (8 sets, daily range): BP systolic 105–134; BP diastolic 62–73; PULSE 61–80; RESP 16–22; TEMP 36.6–36.9; O2SAT 93–99; BMI 19.5
--- NOTE | 2020-10-20 06:00 | XR_ITS ---
PROCEDURE INFORMATION: Exam: XR Chest Exam date and time: 10/20/2020 6:00 AM Age: 65 years old Clinical indication: Smoker's cough; Patient HX: Increased wbc, smoker, cough; Additional info: Increase wbc TECHNIQUE: Imaging protocol: XR of the chest. Views: 1 view. COMPARISON: CR XR CHEST PORTABLE 10/18/2020 7:36 AM FINDINGS: Lungs: Unremarkable. No consolidation. Pleural spaces: Unremarkable. No pleural effusion. No pneumothorax. Heart/Mediastinum: Unremarkable. No cardiomegaly. Bones/joints: Unremarkable. IMPRESSION: No acute findings.
[2020-10-20 06:57] LABS: Eosinophils # 0.1 K/mm3 (0.0-0.4); Eosinophils % 0.3 % (0.1-12.0); Hematocrit 39.9 % (42.0-52.0); Hemoglobin 12.7 g/dL (14.1-18.0); Lymphocytes # 1.2 K/mm3 (0.7-4.5); Lymphocytes % 3.8 % (10-50); Mean Corpuscular HGB Conc 31.7 g/dL (31.8-35.4); Mean Corpuscular Hemoglobin 29.1 pg (27.0-31.2); Mean Corpuscular Volume 91.7 fl (80-94); Mean Platelet Volume 8.1 fl (7.4-10.4); Monocytes # 0.7 K/mm3 (0.1-1.0); Monocytes % 2.3 % (1.7-9.3); Neutrophils # 28.4 K/mm3 (1.8-7.8); Neutrophils % 93.6 % (37.0-80.0); Platelet Count 280 K/mm3 (142-424); Red Blood Count 4.35 M/mm3 (4.60-6.20); Red Cell Distribution Width 14.8 % (11.5-17.5); White Blood Count 30.3 K/mm3 (4.8-10.8)
[2020-10-20 07:13] LABS: Anion Gap 6.5 mEq/L (5-15); Blood Urea Nitrogen 13 mg/dl (9-20); Calcium 8.6 mg/dl (8.4-10.2); Carbon Dioxide 27 mmol/L (22.0-30.0); Chloride 101 mmol/L (98-107); Creatinine Clearance Estimated 65 mL/min (50-200); Estimated Glomerular Filt Rate 113 ml/min (>60); GFR (African American) 137 ML/MIN (>60); Glucose 133 mg/dl (74-100); Potassium 4.5 mmoL/L (3.5-5.1); Sodium 130 mmol/L (136-145)
[2020-10-20 07:16] LABS: MANUAL DIFFERENTIAL MANUAL DIFFERENTIAL (MANUAL DIFF)
--- NOTE | 2020-10-20 08:51 | HMH.ACPN2 ---
Internal Medicine - PN: Subj *Date: 10/21/20 *Time: 06:41 Interval history: pt seen - no fever reported but wbc still elevated will change abx Exam Vital signs and Labs for Last 24 Hours: Temp Pulse Resp BP Pulse Ox 97.9 F 80 20 117/72 95 10/20/20 08:00 10/20/20 08:00 10/20/20 08:00 10/20/20 08:00 10/20/20 08:00 Laboratory Results - last 24 hr 10/19/20 08:25: Chlamy pneumoniae PCR Not detected, Adenovirus (PCR) Not detected, B. pertussis DNA (PCR) Not detected, Coronavirus OC43 (PCR) Not detected, Coronavirus HKU1 (PCR) Not detected, Coronavirus 229E (PCR) Not detected, Coronavirus NL63 (PCR) Not detected, Human Metapneumovir PCR Not detected, Influenza A (H1) PCR Not detected, Influ A (H1N1/09) PCR Not detected, Influenza A (H3) PCR Not detected, Influenza Type A (PCR) Not detected, Influenza Type B (PCR) Not detected, M. pneumoniae (PCR) Not detected, Parainfluenza 1 (PCR) Not detected, Parainfluenza 2 (PCR) Not detected, Parainfluenza 3 (PCR) Not detected, Parainfluenza 4 (PCR) Not detected, RSV (PCR) Not detected, Entero/Rhino (PCR) Not detected 10/20/20 06:25: WBC 30.3 H*, RBC 4.35 L, Hgb 12.7 L, Hct 39.9 L, MCV 91.7, MCH 29.1, MCHC 31.7 L, RDW 14.8, Plt Count 280, MPV 8.1, Neut % (Auto) 93.6 H, Lymph % (Auto) 3.8 L, [place] % (Auto) 2.3, Eos % (Auto) 0.3, Baso % (Auto) 0.0 L, Neut # (Auto) 28.4 H, Lymph # (Auto) 1.2, [place] # (Auto) 0.7, Eos # (Auto) 0.1, Baso # (Auto) 0.0 10/20/20 06:25: Sodium 130 L, Potassium 4.5, Chloride 101, Carbon Dioxide 27, Anion Gap 6.5, BUN 13, Creatinine 0.70, Estimated Creat Clear 65, Estimated GFR 113, Est GFR ( Amer) 137, Glucose 133 H, Calcium 8.6 I & O for Last 24 hours: Intake & Output 10/17/20 10/18/20 10/19/20 10/20/20 11:59 11:59 11:59 11:59 Intake Total 1901 / 1901 2224 / 2224 Output Total 2885 / 2885 4000 / 4000 Balance -984 / -984 -1776 / -1776 Weight 155 lb 140 lb Microbiology Reports for the Last 24 Hours: Microbiology 10/18/20 07:14 Blood Blood Culture - Preliminary - Constitutional no acute distress, thin - *Routine HEENT Exam Head: Present: normocephalic Eye: Present: EOMI, PERRL ENT: Present: mucous membranes dry - *Routine Neck Exam Present: supple - *Routine Respiratory Exam Present: CTA bilaterally - *Routine Cardiovascular Exam Present: RRR, murmur - *Routine Abdominal Exam Present: soft - *Routine Extremities Exam Absent: calf tenderness - *Routine Skin Exam Present: intact - *Routine Neurological Exam Present: alert, CN II-XII intact - Routine Psychiatric Exam Present: normal affect Assessment and Plan (1) Acute delirium Status: Acute Category: Medical Code(s): R41.0 - Disorientation, unspecified (2) COPD exacerbation Status: Acute Category: Medical Code(s): J44.1 - Chronic obstructive pulmonary disease with (acute) exacerbation (3) Schizophrenia Status: Chronic Qualifiers: Schizophrenia type: unspecified Qualified Code(s): F20.9 - Schizophrenia, unspecified Category: Medical Code(s): F20.9 - Schizophrenia, unspecified (4) Tobacco use disorder, continuous Status: Chronic Category: Medical Code(s): F17.209 - Nicotine dependence, unspecified, with unspecified nicotine-induced disorders
[2020-10-20 09:23] LABS: Lymphocytes % 7 % (10-50); Monocytes % 3 % (2-9); Neutrophils % 88 % (42-76); Platelet Estimate Normal; RBC Morphology Normal; Total Cells Counted 100
--- NOTE | 2020-10-20 14:21 | HMH.PHACONS ---
- Pharmacy Consult Date: 10/20/20 Time: 14:21 Referring provider: DR. KAUR Reason for Consult:: VANCOMYCIN DOSING Allergies and ADEs:: Allergies Allergy/AdvReac Type Severity Reaction Status Date / Time No Known Allergies Allergy Verified 12/06/18 13:32 Home Medications:: Home Medications Medication Instructions Recorded Confirmed Type Divalproex Sodium 750 mg PO BID 05/22/18 10/18/20 History Tamsulosin HCl [Flomax 0.4mg 0.4 mg PO DAILY 05/22/18 10/18/20 History capsule] Docusate Sodium [Docusate Sodium 200 mg PO BID 06/29/18 10/18/20 History 100mg Cap] Acetaminophen [Acetaminophen 325mg 325 mg PO Q6H PRN 11/12/19 10/18/20 History tab] ARIPiprazole [Abilify Maintena 400 mg IM DIRECTED 10/18/20 10/18/20 History 400mg Inj] Benztropine Mesylate 0.5 mg PO HS 10/18/20 10/18/20 History Buspirone HCl [Buspirone 7.5mg 7.5 mg PO BID 10/18/20 10/18/20 History tablets] Magnesium Hydroxide [Milk of 10 ml PO Q6 PRN 10/18/20 10/18/20 History Magnesia] OLANZapine [Zyprexa] 10 mg PO TID 10/18/20 10/18/20 History Propranolol HCl [Inderal 20mg 20 mg PO TID 10/18/20 10/18/20 History Tablet] cloZAPine [Clozapine] 600 mg PO HS 10/18/20 10/18/20 History hydrOXYzine pamoate [Vistaril 25mg 25 mg PO QIDP PRN 10/18/20 10/19/20 History capsule] Height: 1.8 m Weight: 63.503 kg Laboratory Results:: Laboratory Results - last 24 hr 10/20/20 06:25: WBC 30.3 H*, RBC 4.35 L, Hgb 12.7 L, Hct 39.9 L, MCV 91.7, MCH 29.1, MCHC 31.7 L, RDW 14.8, Plt Count 280, MPV 8.1, Neut % (Auto) 93.6 H, Lymph % (Auto) 3.8 L, [place] % (Auto) 2.3, Eos % (Auto) 0.3, Baso % (Auto) 0.0 L, Neut # (Auto) 28.4 H, Lymph # (Auto) 1.2, [place] # (Auto) 0.7, Eos # (Auto) 0.1, Baso # (Auto) 0.0, Total Counted 100, Neutrophils % (Manual) 88 H, Band Neutrophils % 2.0, Lymphocytes % (Manual) 7 L, Monocytes % (Manual) 3, Platelet Estimate Normal, RBC Morphology Normal 10/20/20 06:25: Sodium 130 L, Potassium 4.5, Chloride 101, Carbon Dioxide 27, Anion Gap 6.5, BUN 13, Creatinine 0.70, Estimated Creat Clear 65, Estimated GFR 113, Est GFR ( Amer) 137, Glucose 133 H, Calcium 8.6 Medical History: Reports:: Anxiety, Coronary Artery Disease, Depression, Hypertension Denies:: Cancer, Diabetes Mellitus Type 1, Diabetes Mellitus Type 2, MRSA Assessment and Plan (1) Acute delirium Status: Acute Category: Medical Code(s): R41.0 - Disorientation, unspecified (2) COPD exacerbation Status: Acute Category: Medical Code(s): J44.1 - Chronic obstructive pulmonary disease with (acute) exacerbation (3) Schizophrenia Status: Chronic Qualifiers: Schizophrenia type: unspecified Qualified Code(s): F20.9 - Schizophrenia, unspecified Category: Medical Code(s): F20.9 - Schizophrenia, unspecified (4) Tobacco use disorder, continuous Status: Chronic Category: Medical Code(s): F17.209 - Nicotine dependence, unspecified, with unspecified nicotine-induced disorders - Assessment and plan all Dx Assessment and Plan for all problems:: Age: 65 yo Serum creatinine: 1 mg/dL Height: 70.9 Inches Weight (kg): 63.5 Assessment: IBW (kg): 75.07 Dosing wt(kg): 63.5 Estimated Creatinine clearance (ml/min): 65.3 CRCL method: Cockcroft and Gault using ibw(default). Drug selected: Vancomycin Loading dose (mg): 0 Vd (liters): 50.8 (factor used: 0.8 L/kg) Steven (hr-1): 0.059 Half life (hrs): 11.75 Recommended dose: 1250 mg Interval: 18 hrs Infusion time (hrs): 2.0 Predicted peak (mcg/mL): 35.5 Predicted trough (mcg/mL): 13.81 Total body weight is being used for vancomycin dosing. Recommendations: Give Vancomycin 1250 mg q 18 hrs with an expected Cpeak of 35.5 mcg/ml and an expected Ctrough of 13.81 mcg/ml
--- NOTE | 2020-10-20 17:28 | PC.NURSE ---
Pt has been pleasant and cooperative this shift. A&O X4. No complaints of pain or SOA. Pt is on room air with sats. >90%. Lung sounds are diminished with scattered crackles. No edema noted. Skin is C/D/I. Pt uses the urinal to void clear, yellow urine without issue. No BM this shift. Pt ambulates with stand-by assistance and has sat up in the recliner for the majority of the day. 18 G peripheral IV in the LT AC is patent SL. 20 G peripheral IV in the RT forearm is patent and infusing NS @ 100 ML/HR. VSS. Call light within reach. Will continue to monitor.
[2020-10-21] VITALS (11 sets, daily range): BP systolic 104–130; BP diastolic 62–70; PULSE 51–75; RESP 16–20; TEMP 36.5–36.8; O2SAT 97–100; BMI 19.5
--- NOTE | 2020-10-21 05:14 | PC.NURSE ---
pt has been awake throughout the night. iv patent and infusing per order. vss. pt is pleasant. uses call light appropriately. will continue to monitor
[2020-10-21 07:16] LABS: Basophils % 0.1 % (0.1-2.0); Hematocrit 42.5 % (42.0-52.0); Hemoglobin 14.2 g/dL (14.1-18.0); Lymphocytes # 1.7 K/mm3 (0.7-4.5); Lymphocytes % 6.8 % (10-50); Mean Corpuscular HGB Conc 33.3 g/dL (31.8-35.4); Mean Corpuscular Hemoglobin 29.5 pg (27.0-31.2); Mean Corpuscular Volume 88.5 fl (80-94); Mean Platelet Volume 8.2 fl (7.4-10.4); Monocytes # 0.7 K/mm3 (0.1-1.0); Monocytes % 2.8 % (1.7-9.3); Neutrophils # 21.7 K/mm3 (1.8-7.8); Neutrophils % 90.3 % (37.0-80.0); Platelet Count 340 K/mm3 (142-424)
[2020-10-21 07:22] LABS: Anion Gap 9.8 mEq/L (5-15); Blood Urea Nitrogen 16 mg/dl (9-20); Calcium 9.2 mg/dl (8.4-10.2); Carbon Dioxide 30 mmol/L (22.0-30.0); Chloride 101 mmol/L (98-107); Creatinine Clearance Estimated 65 mL/min (50-200); Estimated Glomerular Filt Rate 97 ml/min (>60); GFR (African American) 117 ML/MIN (>60); Glucose 132 mg/dl (74-100); MANUAL DIFFERENTIAL MANUAL DIFFERENTIAL (MANUAL DIFF); Potassium 4.8 mmoL/L (3.5-5.1); Sodium 136 mmol/L (136-145)
[2020-10-21 08:13] LABS: Lymphocytes % 8 % (10-50); Monocytes % 3 % (2-9); Neutrophils % 89 % (42-76); Platelet Estimate Normal; RBC Morphology Normal; Total Cells Counted 100
--- NOTE | 2020-10-21 09:10 | HMH.ACPN2 ---
Internal Medicine - PN: Subj *Date: 10/22/20 *Time: 06:27 Interval history: pt doing better - wbc dec -oob in chair Exam Vital signs and Labs for Last 24 Hours: Temp Pulse Resp BP Pulse Ox 98.0 F 75 18 119/67 100 10/21/20 08:00 10/21/20 08:00 10/21/20 08:00 10/21/20 08:00 10/21/20 08:00 Laboratory Results - last 24 hr 10/20/20 06:25: Total Counted 100, Neutrophils % (Manual) 88 H, Band Neutrophils % 2.0, Lymphocytes % (Manual) 7 L, Monocytes % (Manual) 3, Platelet Estimate Normal, RBC Morphology Normal 10/21/20 06:28: WBC 24.0 H*, RBC 4.80, Hgb 14.2, Hct 42.5, MCV 88.5, MCH 29.5, MCHC 33.3, RDW 15.0, Plt Count 340, MPV 8.2, Neut % (Auto) 90.3 H, Lymph % (Auto) 6.8 L, [place] % (Auto) 2.8, Eos % (Auto) 0.0 L, Baso % (Auto) 0.1, Neut # (Auto) 21.7 H, Lymph # (Auto) 1.7, [place] # (Auto) 0.7, Eos # (Auto) 0.0, Baso # (Auto) 0.0, Total Counted 100, Neutrophils % (Manual) 89 H, Lymphocytes % (Manual) 8 L, Monocytes % (Manual) 3, Platelet Estimate Normal, RBC Morphology Normal 10/21/20 06:28: Sodium 136, Potassium 4.8, Chloride 101, Carbon Dioxide 30, Anion Gap 9.8, BUN 16, Creatinine 0.80, Estimated Creat Clear 65, Estimated GFR 97, Est GFR ( Amer) 117, Glucose 132 H, Calcium 9.2 I & O for Last 24 hours: Intake & Output 10/18/20 10/19/20 10/20/20 10/21/20 11:59 11:59 11:59 11:59 Intake Total 1901 / 1901 2224 / 2224 4966 / 4966 Output Total 2885 / 2885 4000 / 4000 7600 / 7600 Balance -984 / -984 -1776 / -1776 -2634 / -2634 Weight 155 lb 140 lb 139 lb 15.932 oz Microbiology Reports for the Last 24 Hours: Microbiology 10/18/20 07:14 Blood Blood Culture - Preliminary 10/18/20 07:14 Blood Blood Culture - Preliminary - Constitutional no acute distress - *Routine HEENT Exam Head: Present: normocephalic Eye: Present: EOMI, PERRL ENT: Present: mucous membranes dry - *Routine Neck Exam Present: supple. Absent: JVD - *Routine Respiratory Exam Present: CTA bilaterally - *Routine Cardiovascular Exam Present: RRR. Absent: murmur - *Routine Abdominal Exam Present: soft - *Routine Extremities Exam Absent: calf tenderness - *Routine Skin Exam Present: intact - *Routine Neurological Exam Present: alert, CN II-XII intact - Routine Psychiatric Exam Present: cooperative, anxious Assessment and Plan (1) Acute delirium Status: Acute Category: Medical Code(s): R41.0 - Disorientation, unspecified (2) COPD exacerbation Status: Acute Category: Medical Code(s): J44.1 - Chronic obstructive pulmonary disease with (acute) exacerbation (3) Schizophrenia Status: Chronic Qualifiers: Schizophrenia type: unspecified Qualified Code(s): F20.9 - Schizophrenia, unspecified Category: Medical Code(s): F20.9 - Schizophrenia, unspecified (4) Tobacco use disorder, continuous Status: Chronic Category: Medical Code(s): F17.209 - Nicotine dependence, unspecified, with unspecified nicotine-induced disorders
--- NOTE | 2020-10-21 17:03 | PC.NURSE ---
Pt has been pleasant and cooperative this shift. A&O X4. No complaints of pain or SOA. Pt is on room air with sats. >90%. Lungs CTA. No edema noted. Skin is C/D/I. Pt uses the urinal to void clear, yellow urine without issue. No BM this shift. Pt ambulates independently to/from the bathroom and throughout the room. Pt has also sat up in the recliner for the majority of the day. 18 G peripheral IV in the LT AC is patent SL. 20 G peripheral IV in the RT forearm is patent and infusing NS @ 100 ML/HR. VSS. Call light within reach. Will continue to monitor.
[2020-10-22] VITALS: BP 110/70; PULSE 62; RESP 18; TEMP 36.7; O2SAT 97
[2020-10-22 04:00] VITALS: BP 123/71; PULSE 56; RESP 17; TEMP 36.7; O2SAT 100
--- NOTE | 2020-10-22 04:00 | PC.NURSE ---
late entry: no issues. ambulates independently. iv patent and infusing. vss. call light in reach. will continue to monitor
[2020-10-22 05:00] VITALS: BMI 19.5
[2020-10-22 06:21] LABS: Basophils % 0.1 % (0.1-2.0); Eosinophils % 0.1 % (0.1-12.0); Hematocrit 37.2 % (42.0-52.0); Lymphocytes # 1.4 K/mm3 (0.7-4.5); Lymphocytes % 7.4 % (10-50); Mean Corpuscular HGB Conc 33.5 g/dL (31.8-35.4); Mean Corpuscular Hemoglobin 29.9 pg (27.0-31.2); Mean Corpuscular Volume 89.2 fl (80-94); Monocytes # 0.7 K/mm3 (0.1-1.0); Monocytes % 3.6 % (1.7-9.3); Neutrophils # 16.1 K/mm3 (1.8-7.8); Neutrophils % 88.7 % (37.0-80.0); Platelet Count 281 K/mm3 (142-424); Red Blood Count 4.17 M/mm3 (4.60-6.20); Red Cell Distribution Width 14.9 % (11.5-17.5); White Blood Count 18.1 K/mm3 (4.8-10.8)
[2020-10-22 06:27] LABS: MANUAL DIFFERENTIAL MANUAL DIFFERENTIAL (MANUAL DIFF)
[2020-10-22 06:30] VITALS: PULSE 58; PULSE 60; O2SAT 98
[2020-10-22 06:32] LABS: Anion Gap 5.7 mEq/L (5-15); Blood Urea Nitrogen 16 mg/dl (9-20); Calcium 8.6 mg/dl (8.4-10.2); Carbon Dioxide 31 mmol/L (22.0-30.0); Chloride 102 mmol/L (98-107); Creatinine Clearance Estimated 65 mL/min (50-200); Estimated Glomerular Filt Rate 113 ml/min (>60); GFR (African American) 137 ML/MIN (>60); Glucose 111 mg/dl (74-100); Potassium 3.7 mmoL/L (3.5-5.1); Sodium 135 mmol/L (136-145)
[2020-10-22 06:46] LABS: Hemoglobin 12.4 g/dL (14.1-18.0)
[2020-10-22 08:00] VITALS: BP 105/64; PULSE 74; RESP 18; TEMP 36.8; O2SAT 99
--- NOTE | 2020-10-22 08:37 | HMH.DCSUM ---
General - General Admission date:: 10/18/20 Discharge date: 10/22/20 HPI HPI: 65 yr old male presented to ed from senior care for ams, pt awake, confused, will not answer questions or follow commands. fever 103,ams, and no answering questions when asked. Pt admitted for pneumonia and consult pulm. pt has hx copd,smoker and schizophrenia. Hospital Course Hospital Course: Laboratory Tests 10/18/20 10/18/20 10/18/20 07:05 07:05 07:05 WBC 19.7 H RBC 4.43 L Hgb 13.0 L Hct 38.9 L MCV 87.8 MCH 29.4 MCHC 33.5 RDW 14.7 Plt Count 284 MPV 7.6 Neut % (Auto) 87.8 H Lymph % (Auto) 5.7 L Gar[place] % (Auto) 4.0 Eos % (Auto) 2.3 Baso % (Auto) 0.2 Neut # (Auto) 17.2 H Lymph # (Auto) 1.1 [place] # (Auto) 0.8 Eos # (Auto) 0.5 H Baso # (Auto) 0.0 Total Counted 100 Neutrophils % (Manual) 93 H Band Neutrophils % Lymphocytes % (Manual) 6 L Monocytes % (Manual) 1 L Platelet Estimate Normal RBC Morphology Normal ESR Specimen Source O2 % ABG pH ABG pCO2 ABG pO2 ABG HCO3 ABG Total CO2 ABG O2 Saturation ABG Base Excess Yung Test ABG Lactate Sodium 132 L Potassium 4.7 Chloride 98 Carbon Dioxide 28 Anion Gap 10.7 BUN 11 Creatinine 1.00 Estimated Creat Clear 72 Estimated GFR 75 Est GFR ( Amer) 90 Glucose 109 H Lactate 1.0 Calcium 9.1 Magnesium Total Bilirubin 0.4 AST 31 ALT 14 Alkaline Phosphatase 81 Troponin I C-Reactive Protein 12.8 H Total Protein 6.6 Albumin 3.8 Globulin 2.8 Albumin/Globulin Ratio 1.4 Procalcitonin 0.054 Urine Color Urine Appearance Urine pH Ur Specific Duck Urine Protein Urine Glucose (UA) Urine Ketones Urine Blood Urine Nitrate Urine Bilirubin Urine Urobilinogen Ur Leukocyte Esterase Urine RBC Urine WBC Ur Squamous Epith Cells Urine Opiates Screen Urine Methadone Screen Ur Barbituates Screen Ur Phencyclidine Scrn Ur Amphetamines Screen U Benzodiazepines Scrn Urine Cocaine Screen U Marijuana (THC) Screen Plasma/Serum Alcohol Chlamy pneumoniae PCR Adenovirus (PCR) B. pertussis DNA (PCR) Coronavirus OC43 (PCR) Coronavirus HKU1 (PCR) Coronavirus 229E (PCR) Coronavirus NL63 (PCR) Human Metapneumovir PCR Influenza A (H1) PCR Influ A (H1N1/09) PCR Influenza A (H3) PCR Influenza Type A (PCR) Influenza Type B (PCR) M. pneumoniae (PCR) Parainfluenza 1 (PCR) Parainfluenza 2 (PCR) Parainfluenza 3 (PCR) Parainfluenza 4 (PCR) RSV (PCR) Entero/Rhino (PCR) 10/18/20 10/18/20 10/18/20 07:05 07:05 07:05 WBC RBC Hgb Hct MCV MCH MCHC RDW Plt Count MPV Neut % (Auto) Lymph % (Auto) Garland % (Auto) Eos % (Auto) Baso % (Auto) Neut # (Auto) Lymph # (Auto) Gar[place] # (Auto) Eos # (Auto) Baso # (Auto) Total Counted Neutrophils % (Manual) Band Neutrophils % Lymphocytes % (Manual) Monocytes % (Manual) Platelet Estimate RBC Morphology ESR 13 Specimen Source O2 % ABG pH ABG pCO2 ABG pO2 ABG HCO3 ABG Total CO2 ABG O2 Saturation ABG Base Excess Yung Test ABG Lactate Sodium Potassium Chloride Carbon Dioxide Anion Gap BUN Creatinine Estimated Creat Clear Estimated GFR Est GFR ( Amer) Glucose Lactate Calcium Magnesium Total Bilirubin AST ALT Alkaline Phosphatase Troponin I < 0.01 C-Reactive Protein Total Protein Albumin Globulin Albumin/Globulin Ratio Procalcitonin Urine Color Urine Appearance Urine pH Ur Specific Duck Urine Protein Urine Glucose (UA) Urine Ketones Urine Blood Urine Nitrate Urine Bili
[2020-10-22 09:06] LABS: Peripheral Smear Review Scanned Result
[2020-10-22 09:14] LABS: Lymphocytes % 10 % (10-50); Monocytes % 3 % (2-9); Neutrophils % 87 % (42-76); Platelet Estimate Normal; RBC Morphology Normal; Total Cells Counted 100
[2020-10-22 11:38] VITALS: BP 110/74; PULSE 68; RESP 18; TEMP 36.9; O2SAT 99
[2020-10-22 12:40] VITALS: PULSE 71; PULSE 72; O2SAT 96
--- NOTE | 2020-10-22 15:04 | HMH.PULMPN ---
Internal Medicine - PN: Subj *Date: 10/22/20 *Time: 15:04 Interval history: No acute respiratory vents overnight. Patient continued to remain on room air with no respiratory distress Exam - Constitutional Constitutional:: Present: no acute distress, comfortable - HENMT Exam HENMT: Present: normocephalic - Eye Exam Eyes:: Present: normal appearance both eyes and related structures - Neck Exam Neck:: Present: normal visual inspection - Respiratory Exam Respiratory:: Present: able to speak in complete sentences, lungs clear, no respiratory distress, normal respiratory effort. Absent: crackles - Cardiovascular Exam Cardiac:: Present: S1, S2 - GI Exam GI:: Present: soft, no hepatosplenomegaly - Skin Exam Skin: Present: warm, no rash - Neurological Exam Neurological: Present: alert, awake, normal cognition - Extremities Exam Extremities: Present: no cyanosis, no clubbing, no edema Assessment and Plan (1) Acute delirium Status: Acute Category: Medical Code(s): R41.0 - Disorientation, unspecified (2) COPD exacerbation Status: Acute Category: Medical Code(s): J44.1 - Chronic obstructive pulmonary disease with (acute) exacerbation (3) Schizophrenia Status: Chronic Qualifiers: Schizophrenia type: unspecified Qualified Code(s): F20.9 - Schizophrenia, unspecified Category: Medical Code(s): F20.9 - Schizophrenia, unspecified (4) Tobacco use disorder, continuous Status: Chronic Category: Medical Code(s): F17.209 - Nicotine dependence, unspecified, with unspecified nicotine-induced disorders - Assessment and plan all Dx Assessment and Plan for all problems:: #Community-acquired pneumonia: #Greater than [id number] smoking history: 65-year-old previous smoker carries a diagnosis COPD presented to hospital with fever and leukocytosis x-ray showed bilateral lower lobe pulmonary infiltrates concerning for community-acquired pneumonia. Mentation significantly improved today - engaging in meaningful cnversation. Resp status remained stable, on RA with no distress. UA WNL. Blood cultures on both bottles showing gram positive bacilli with a negative PCR despite the concern for contamination given worsening leukocytosis on Thursday patient was escalated to vancomycin and Zosyn however he clinically improved so far the blood cultures did not yield anything. Patient clinical status significantly improved. I have talked to the lab personally his cultures noted to have multiple species on the staining that makes more of a contaminant likely possibility than a true infection. Sputum GMS showing gram-positive cocci in pairs. Plan: - Initiate Anoro inhaler 1 puff daily - Can de-escalate antibiotics to levofloxacin to complete a total of 7-day course for community-acquired pneumonia - Recommend primary team to closely follow with the final blood culture results to determine the need for escalation of antibiotics - DuoNebs every 6 hours scheduled. # Thank you for involving pulmonary in patient care. We will follow the patient in 4 to 6 weeks with a full PFTs and 6-minute walk testing.
[2020-10-22 22:57] LABS: Free Valproic Acid (Depakote) 20.8
[2020-11-26 12:53] LABS: POC Glucose,Bedside 97 (70-110)
== END 2020-10-22 13:30 | disposition home or self-care (01) | DRG 190 ==
LOC: ER 08:13 → 2ND 10:21
PROVIDERS: Internal Medicine Pulmonary Disease; Nurse Practitioner Family; Admitting Provider Emergency Medicine; Emergency Provider Emergency Medicine; PCP Emergency Medicine; Visit Provider Emergency Medicine
DX: J44.1 Chronic obstructive pulmonary disease with (acute) exacerbation (principal); J18.9 Pneumonia, unspecified organism; F20.9 Schizophrenia, unspecified; I25.10 Atherosclerotic heart disease of native coronary artery without angina pectoris; I10 Essential (primary) hypertension; Z20.822 Contact with and (suspected) exposure to COVID-19; F17.210 Nicotine dependence, cigarettes, uncomplicated; F32.9 Major depressive disorder, single episode, unspecified; F41.9 Anxiety disorder, unspecified; R41.0 Disorientation, unspecified; J44.0 Chronic obstructive pulmonary disease with (acute) lower respiratory infection
CPT/HCPCS: 36415; 70450; 71045; 80048; 80053; 80165; 80305; 81001; 82803; 82962; 83605; 83735; 84145; 84484; 85007; 85025; 85651; 86140; 87040; 87070; 87077; 87186; 87205; 87486; 87581; 87633; 87798; 93306; 94640; 94760; 96365; 96367; 96375; 96376; 99284; J0456; J2543; J3370; U0003

== ENCOUNTER 2022-01-12 23:14 | Emergency (ER) | payer MEDICARE, MEDICAID, SELFPAY ==
[2022-01-12 23:09] VITALS: BP 102/67; PULSE 68; RESP 17; TEMP 36.9; O2SAT 99; BMI 20.3
--- NOTE | 2022-01-13 00:23 | ECG_ITS ---
APPROVED REPORT Exam: Resting ECG HR:61 bpm ECG Measurements Heart Rate 61 AXES CA 137 P 75 QRSd 98 QRS 79 QT 423 T 76 QTc 426 Conclusion SINUS RHYTHM POSSIBLE LEFT ATRIAL ENLARGEMENT [-0.1mV P-WAVE IN V1/V2] SEPTAL MYOCARDIAL INFARCTION , OF INDETERMINATE AGE [40+ ms Q WAVE IN V1/V2] ABNORMAL ECG UNCONFIRMED REPORT Electronically signed by : Jose Cortes MD 01/13/2022 20:36:33
[2022-01-13 00:25] VITALS: BP 100/68; PULSE 62; O2SAT 97
[2022-01-13 00:40] LABS: Basophils # 0.1 K/mm3 (0-0.2); Basophils % 1.1 % (0.1-2.0); Eosinophils # 0.1 K/mm3 (0.0-0.4); Eosinophils % 1.2 % (0.1-12.0); Hematocrit 44.1 % (42.0-52.0); Hemoglobin 13.8 g/dL (14.1-18.0); Lymphocytes # 1.2 K/mm3 (0.7-4.5); Lymphocytes % 15.9 % (10-50); Mean Corpuscular HGB Conc 31.2 g/dL (31.8-35.4); Mean Corpuscular Hemoglobin 28.7 pg (27.0-31.2); Mean Corpuscular Volume 91.9 fl (80-94); Mean Platelet Volume 8.9 fl (7.4-10.4); Monocytes # 0.6 K/mm3 (0.1-1.0); Monocytes % 7.5 % (1.7-9.3); Neutrophils # 5.8 K/mm3 (1.8-7.8); Neutrophils % 74.3 % (37.0-80.0); Platelet Count 200 K/mm3 (142-424); White Blood Count 7.7 K/mm3 (4.8-10.8)
[2022-01-13 00:43] LABS: Influenza A, PCR Not Detected (NotDetected); Influenza B, PCR Not Detected (NotDetected); Microscopic, Urine URINE MICROSCOPIC (MICROSCOPIC)
--- NOTE | 2022-01-13 00:43 | HMH.EDGENADL ---
ED Disposition Clinical Impression: Encounter for medical assessment, COVID-19 Disposition: Home, Self-Care Condition on Discharge: Good Instructions: DI for COVID-19 (Suspected or Confirmed ) Additional Instructions: Please follow-up with your primary care provider over the next 48 hours. Return to the emergency department for any new or worsening symptoms. Referrals: Olman Pascual MD [Primary Care Provider] - - Critical Care Critical Care Time: No Attestation: On 01/12/22, the high probability of a clinically significant, sudden or life threatening deterioration of the following system(s) required my full and direct attention, intervention and personal management. The time I documented below is in addition to time spent performing reported procedures but includes the following listed in this critical care notation. Medical Decision Making - [place] Inquiry Pt receiving controlled substance: No Vital Signs: 01/12/22 23:09 01/13/22 00:25 01/13/22 02:43 Temperature 98.5 F 98.3 F Temperature Source Oral Oral Pulse Rate 62 80 Pulse Rate [Right] 68 Respiratory Rate 17 16 Blood Pressure 100/68 L 110/64 Blood Pressure [Right Arm] 102/67 L Blood Pressure Mean [Right Arm] 78 Blood Pressure Source Automatic Cuff Blood Pressure Position Sitting 02 Sat by Pulse Oximetry 99 97 Oxygen Delivery Method Room Air Room Air Room Air - Lab Data Lab Results 01/13/22 00:33: WBC 7.7, RBC 4.80, Hgb 13.8 L, Hct 44.1, MCV 91.9, MCH 28.7, MCHC 31.2 L, RDW 15.0, Plt Count 200, MPV 8.9, Neut % (Auto) 74.3, Lymph % (Auto) 15.9, [place] % (Auto) 7.5, Eos % (Auto) 1.2, Baso % (Auto) 1.1, Neut # (Auto) 5.8, Lymph # (Auto) 1.2, [place] # (Auto) 0.6, Eos # (Auto) 0.1, Baso # (Auto) 0.1 01/13/22 00:33: Sodium 137, Potassium 3.8, Chloride 101, Carbon Dioxide 32 H, Anion Gap 7.8, BUN 19, Creatinine 1.00, Estimated Creat Clear 69, Estimated GFR 75, Est GFR ( Amer) 90, Glucose 100, Calcium 8.3 L, Total Bilirubin < 0.1 L, AST 39, ALT 21, Alkaline Phosphatase 89, Total Protein 5.9 L, Albumin 3.1 L, Globulin 2.8, Albumin/Globulin Ratio 1.1, Lipase 30 01/13/22 00:34: Urine Color Yellow, Urine Appearance Clear, Urine pH 7.0, Ur Specific [place] 1.010, Urine Protein Negative, Urine Glucose (UA) Negative, Urine Ketones Trace, Urine Blood Negative, Urine Nitrate Negative, Urine Bilirubin Negative, Urine Urobilinogen 0.2, Ur Leukocyte Esterase Negative, Ur Squamous Epith Cells Occasional, Amorphous Sediment Trace 01/13/22 00:34: SARS-CoV-2 (PCR) Detected A, Influenza A Untype (PCR) Not detected, Influenza Type B (PCR) Not detected 01/13/22 00:42: Lactate 0.5 L Result diagrams: 01/13/22 00:33 01/13/22 00:33 Orders (Tests/Meds): ORDERS Category Date Time Status ECG Request by /Eddie Stat Y 01/13/22 00:23 Ordered Medical Decision Narrative: In summary, this patient is a 66-year-old male [place] the [place] department [place] [facility] [place] concern that he felt poorly today prior to taking a nap. He currently denies any complaints. Differential diagnoses include dehydration, viral syndrome, hypokalemia, hypomagnesemia, dysrhythmia. The patient has normal sinus rhythm on EKG with no concerns for dysrhythmia. Labs were obtained that demonstrated positive COVID-19 test, however labs were otherwise unremarkable. The patient was able to ambulate to the restroom here multiple times without difficulty, and he continues to have no complaints. Given this, I feel that he is appropriate for discharge back to [facility]. He was given strict return precautions and instructions for outpatient supportive management. He was discharged in stable condition. General Adult HPI - General Chief complaint: Recheck/Abnormal Lab/Rx Stated complaint: not feeling well Time Seen by Provider: 01/12/22 23:30 Mode of Arrival: EMS Description of Symptoms (Recalled from ER Triage Doc. by RN): Pt denies any
[2022-01-13 00:53] LABS: Appearance,Urine CLEAR (Clear); Bilirubin,Urine Negative (Negative); Blood, Urine Negative (Negative); Color,Urine YELLOW (Yellow); Glucose,Urine (UA) Negative (Negative); Ketones,Urine TRACE (Negative); Leukocyte Esterase,Urine Negative (Negative); Nitrate,Urine Negative (Negative); Protein,Urine Negative (Negative); Urobilinogen,Urine 0.2 EU/dl (0.2)
[2022-01-13 00:57] LABS: Alanine Aminotransferase 21 U/L (12-78); Albumin Level 3.1 g/dl (3.5-5.0); Albumin/Globulin Ratio 1.1 (1.1-1.8); Alkaline Phosphatase 89 U/L (38-126); Anion Gap 7.8 mEq/L (5-15); Aspartate Amino Transferase 39 U/L (17-59); Blood Urea Nitrogen 19 mg/dl (9-20); Calcium 8.3 mg/dl (8.4-10.2); Carbon Dioxide 32 mmol/L (22.0-30.0); Chloride 101 mmol/L (98-107); Creatinine Clearance Estimated 69 mL/min (50-200); Estimated Glomerular Filt Rate 75 ml/min (>60); GFR (African American) 90 ML/MIN (>60); Globulin 2.8 g/dL (1.3-3.2); Glucose 100 mg/dl (74-100); Lipase 30 U/L (23-300); Potassium 3.8 mmoL/L (3.5-5.1); Sodium 137 mmol/L (136-145); Total Protein,Serum 5.9 g/dl (6.3-8.2)
[2022-01-13 00:57] LABS: Amorphous Sediment,Urine Trace /lpf; Squamous Epithelial Cell,Urine Occasional #/hpf (0-5)
--- NOTE | 2022-01-13 00:57 | PC.NURSE ---
Pt given warm blanket for comfort. No other needs or complaints voiced at this time.
[2022-01-13 00:58] LABS: Bilirubin,Total < 0.1 mg/dl (0.2-1.3)
[2022-01-13 00:58] LABS: Lactic Acid 0.5 mmol/L (0.7-2.1)
[2022-01-13 01:33] LABS: Coronavirus 19, PCR Detected (NotDetected)
--- NOTE | 2022-01-13 02:14 | PC.NURSE ---
Spoke with [facility] and let them know that pt was ready for d/c and that he was positive for covid. Staff advised that they did not have a delivery motorcycle driver at this time and would let me know
[2022-01-13 02:43] VITALS: BP 110/64; PULSE 80; RESP 16; TEMP 36.8; O2SAT 98
== END 2022-01-13 02:53 | disposition home or self-care (01) ==
PROVIDERS: Emergency Provider Emergency Medicine; PCP Emergency Medicine
DX: U07.1 COVID-19 (principal)
CPT/HCPCS: 80053; 81001; 83605; 83690; 85025; 93005; 99283; C9803; U0003; U0005

== ENCOUNTER 2022-06-13 10:03 | Emergency (ER) | payer MEDICARE, MEDICAID, SELFPAY ==
[2022-06-13 10:04] VITALS: BP 109/75; PULSE 86; RESP 18; TEMP 36.5; O2SAT 98; BMI 19.5
[2022-06-13 10:11] LABS: POC Glucose,Bedside 112 (70-110)
--- NOTE | 2022-06-13 10:15 | PC.NURSE ---
DR WILKINSON AT BEDSIDE
[2022-06-13 10:26] LABS: Basophils # 0.1 K/mm3 (0-0.2); Basophils % 0.3 % (0.1-2.0); Eosinophils # 0.9 K/mm3 (0.0-0.4); Eosinophils % 4.5 % (0.1-12.0); Hematocrit 41.1 % (42.0-52.0); Hemoglobin 13.3 g/dL (14.1-18.0); Lymphocytes # 1.3 K/mm3 (0.7-4.5); Lymphocytes % 6.6 % (10-50); Mean Corpuscular HGB Conc 32.3 g/dL (31.8-35.4); Mean Corpuscular Hemoglobin 29.8 pg (27.0-31.2); Mean Corpuscular Volume 92.2 fl (80-94); Mean Platelet Volume 8.6 fl (7.4-10.4); Monocytes # 0.9 K/mm3 (0.1-1.0); Monocytes % 4.3 % (1.7-9.3); Neutrophils # 16.8 K/mm3 (1.8-7.8); Neutrophils % 84.3 % (37.0-80.0); Platelet Count 233 K/mm3 (142-424); Red Blood Count 4.46 M/mm3 (4.60-6.20); Red Cell Distribution Width 15.2 % (11.5-17.5)
[2022-06-13 10:27] LABS: MANUAL DIFFERENTIAL MANUAL DIFFERENTIAL (MANUAL DIFF)
[2022-06-13 10:30] LABS: Chloride 102 mmol/L (98-107); Potassium 4.2 mmoL/L (3.5-5.1); Sodium 137 mmol/L (136-145)
[2022-06-13 10:32] LABS: Alanine Aminotransferase 9 U/L (12-78); Aspartate Amino Transferase 15 U/L (17-59); Blood Urea Nitrogen 15 mg/dl (9-20); Creatinine Clearance Estimated 55 mL/min (50-200); Estimated Glomerular Filt Rate 67 ml/min (>60); GFR (African American) 81 ML/MIN (>60)
[2022-06-13 10:33] LABS: Albumin Level 3.4 g/dl (3.5-5.0); Albumin/Globulin Ratio 1.2 (1.1-1.8); Alkaline Phosphatase 73 U/L (38-126); Anion Gap 9.2 mEq/L (5-15); Bilirubin,Total 0.4 mg/dl (0.2-1.3); Calcium 8.5 mg/dl (8.4-10.2); Carbon Dioxide 30 mmol/L (22.0-30.0); Globulin 2.8 g/dL (1.3-3.2); Glucose 114 mg/dl (74-100); Total Protein,Serum 6.2 g/dl (6.3-8.2)
--- NOTE | 2022-06-13 10:34 | HMH.EDGENADL ---
Discharge Plan Disposition Patient Disposition: Home, Self-Care Condition: Good Chief Complaint: Weakness Prescriptions Prescriptions: No Action lorazepam [Ativan] 0.5 mg tablet 0.5 mg PO BID PRN (Reason: agitation) Qty: 30 0RF olanzapine 10 MG tablet 10 mg PO TID magnesium hydroxide 400 MG/5 ML suspension 10 ml PO Q6 PRN (Reason: Constipation) buspirone 7.5 MG tablet 7.5 mg PO BID propranolol 20 MG tablet 20 mg PO TID hydroxyzine pamoate 25 MG capsule 25 mg PO QIDP PRN (Reason: Anxiety) aripiprazole 400 MG suspension,extended rel recon 400 mg IM DIRECTED Rx Instructions: IM every 4 weeks benztropine 0.5 MG tablet 0.5 mg PO HS clozapine 200 MG tablet 600 mg PO HS levofloxacin 500 MG tablet 500 mg PO DAILY 7 Days Qty: 7 0RF clindamycin HCl 300 MG capsule 300 mg PO TID 5 Days Qty: 15 0RF umeclidinium-vilanterol 1 EACH blister with device 1 inh IH DAILY Qty: 60 0RF divalproex 500 MG tablet,delayed release (DR/EC) 750 mg PO BID tamsulosin 0.4 MG capsule 0.4 mg PO DAILY docusate sodium 100 MG capsule 200 mg PO BID acetaminophen 325 MG tablet 325 mg PO Q6H PRN (Reason: As Needed For Fever Or Pain) Activity Restrictions/Add. Instructions Additional Instructions/Restrictions: Follow-up with your primary care provider regarding this visit to the emergency department for dizziness. Be sure to stay plenty hydrated. If you have any other concerning signs or symptoms, return to your primary care provider or the ED for further evaluation. Clinical Impressions Clinical Impression: Dizziness Discharge ED Provider: Mitchel Bustillo General Adult HPI General Chief complaint: Weakness Stated complaint: Dizzy Time Seen by Provider: 06/13/22 10:18 Mode of Arrival: EMS Limitations: No Limitations Description of Symptoms (Recalled from ER Triage Doc. by RN): PT REPORTS HE WOKE UP DIZZY NOW FEELING MUCH BETTER History of Present Illness HPI narrative: This is a 66-year-old male with history of schizophrenia, COPD, currently smoking, CAD, hyperlipidemia who is presenting with dizziness. Patient states that he sat up in bed just shortly prior to arrival and felt dizzy. He was able to hold onto the railing and resolved shortly thereafter, however compared to his dizzy spells in the past, this 1 was more intense. Denies headache, vision changes, numbness/tingling/weakness on one side of his body or the other, recent head trauma, falls, facial droop, difficulty speaking, any other neurologic deficits. Also denies chest pain, shortness of breath, abdominal pain, recent illness, or any other concerning history. Symptoms self resolved prior to arrival Related Data Home Medications Medication Instructions Recorded Confirmed divalproex 500 mg tablet,delayed 750 mg PO BID SEIZURES 05/22/18 10/18/20 release tamsulosin 0.4 mg capsule 0.4 mg PO DAILY prostate 05/22/18 10/18/20 docusate sodium 100 mg capsule 200 mg PO BID STOOL SOFTENER 06/29/18 10/18/20 acetaminophen 325 mg tablet 325 mg PO Q6H PRN As Needed For 11/12/19 10/18/20 Fever Or Pain aripiprazole 400 mg intramuscular 400 mg IM DIRECTED Depression 10/18/20 10/18/20 suspension,extended release benztropine 0.5 mg tablet 0.5 mg PO HS PARKINSONS 10/18/20 10/18/20 buspirone 7.5 mg tablet 7.5 mg PO BID Anxiety 10/18/20 10/18/20 clozapine 200 mg tablet 600 mg PO HS MOOD 10/18/20 10/18/20 hydroxyzine pamoate 25 mg capsule 25 mg PO QIDP PRN Anxiety 10/18/20 10/19/20 magnesium hydroxide 400 mg/5 mL 10 ml PO Q6 PRN Constipation 10/18/20 10/18/20 oral suspension olanzapine 10 mg tablet 10 mg PO TID unknown 10/18/20 10/18/20 propranolol 20 mg tablet 20 mg PO TID Hypertension 10/18/20 10/18/20 Previous Rx's Medication Instructions Recorded clindamycin HCl 300 mg capsule 300 mg PO TID 5 days #15 caps 10/22/20 levofloxacin 500 mg tablet 500 mg PO DAILY 7 days
--- NOTE | 2022-06-13 10:37 | CT_ITS ---
FINAL REPORT CLINICAL HISTORY: dizziness, resolved COMPARISON: 10/18/2020 FINDINGS: Axial images of the head were obtained without contrast. Coronal reformatted images were also obtained. This study was performed with techniques to keep radiation doses as low as reasonably achievable (ALARA). Individualized dose reduction techniques using automated exposure control or adjustment of mA and/or kV according to the patient''s size were employed. There is generalized age-appropriate atrophy. Periventricular low-attenuation areas are seen consistent with mild chronic ischemic changes. There is no evidence of hemorrhage. 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 There is no evidence of acute infarct. There is no evidence of shift of the midline structures. No skull abnormality is seen on the bone window images. IMPRESSION: Atrophy and mild periventricular chronic ischemic changes. 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 Reviewed, Interpreted and Dictated by Sanchez Matthews III, MD Transcribed by Melissa Freeman Authenticated and [facility]
--- NOTE | 2022-06-13 10:41 | XR_ITS ---
FINAL REPORT CLINICAL HISTORY: dizziness, leukocytosis COMPARISON: 10/20/2020 FINDINGS: SINGLE-VIEW CHEST The heart size is normal. The mediastinum is normal. The lungs are hyperinflated consistent with COPD. There is mild scarring. There is no pneumothorax. IMPRESSION: No acute cardiopulmonary process. Reviewed, Interpreted and Dictated by Sanchez Matthews III, MD Transcribed by Melissa Freeman Authenticated and [facility]
[2022-06-13 10:44] LABS: Eosinophils % 1 % (0-3); Lymphocytes % 15 % (10-50); Monocytes % 4 % (2-9); Neutrophils % 80 % (42-76); Platelet Estimate Normal; RBC Morphology Normal; Total Cells Counted 100
--- NOTE | 2022-06-13 10:51 | PC.NURSE ---
food tray brought for patient.
--- NOTE | 2022-06-13 10:52 | PC.NURSE ---
PT PROVIDED LUNCH TRAY
[2022-06-13 11:03] LABS: Microscopic, Urine URINE MICROSCOPIC (MICROSCOPIC)
[2022-06-13 11:06] LABS: Appearance,Urine CLEAR (Clear); Bilirubin,Urine Negative (Negative); Blood, Urine Negative (Negative); Color,Urine YELLOW (Yellow); Glucose,Urine (UA) Negative (Negative); Ketones,Urine TRACE (Negative); Leukocyte Esterase,Urine Negative (Negative); Nitrate,Urine Negative (Negative); PH,Urine 6.5 (5.0-8.5); Protein,Urine Negative (Negative); Urobilinogen,Urine 0.2 EU/dl (0.2)
[2022-06-13 11:18] LABS: Squamous Epithelial Cell,Urine Occasional #/hpf (0-5)
--- NOTE | 2022-06-13 11:50 | PC.NURSE ---
PT AMBULATED IN [place]
--- NOTE | 2022-06-13 11:54 | ECG_ITS ---
APPROVED REPORT Exam: Resting ECG HR:71 bpm ECG Measurements Heart Rate 71 AXES WY 145 P 58 QRSd 113 QRS 47 QT 412 T 64 QTc 434 Conclusion SINUS RHYTHM MODERATE INTRAVENTRICULAR CONDUCTION DELAY [110+ ms QRS DURATION] BORDERLINE ECG UNCONFIRMED REPORT Electronically signed by : Jose Cortes MD 06/13/2022 17:01:58
[2022-06-13 12:25] VITALS: BP 115/72; PULSE 82; RESP 18; TEMP 36.6; O2SAT 98
--- NOTE | 2022-06-13 14:03 | CARE MANAGER ---
Patient will require transport home to [facility]. [facility] notified and bus # [id number] will be here soon to pick him up. ER registration notified of plan as patient is sitting in ER waiting room.
== END 2022-06-13 12:25 | disposition home or self-care (01) ==
PROVIDERS: Emergency Provider Emergency Medicine; PCP Emergency Medicine
DX: R42 Dizziness and giddiness (principal); R53.1 Weakness
CPT/HCPCS: 70450; 71045; 80053; 81001; 82962; 85007; 85025; 93005; 96360; 99285

== ENCOUNTER → 2022-06-23 14:09 | Outpatient (CLI) | payer MEDICARE, MEDICAID, SELFPAY ==
--- NOTE | 2022-06-23 | CA_ITS ---
APPROVED REPORT EXAM: Comprehensive 2D, Doppler, and color-flow Echocardiogram Graphic Design Intern: Kareen Mulligan RVT Ht: 5 ft 11 in Wt: 135lbs BSA: 1.78 BP: 109/75 mmHg Indications: MURMUR,CAD,COPD,SMOKER,HTN,HLD,HX CRACK COCAINE USE 2D Dimensions LVOT 1.99 cm (M/F) 1.5-2.5 LA Volume 23.80 mL LA Volume Index 13.30 mL/m2 (M/F) 16-34 M-Mode Dimensions RVDd 1.81 cm (0.9-2.6) LA Diam 3.53 cm (1.9-4.0) LVDd 4.36 cm (3.5-5.7) Ao Diam 2.89 cm (2.0-3.7) LVDs 2.82 cm (3.5-5.7) IVSd 1.61 cm (0.6-1.1) PWd 0.91 cm (0.6-1.1) EF (Teich) 64.90% FS 35.30% EDV (Teich) 85.80 mL TAPSE 2.01 (<1.7) ESV (Teich) 30.10 mL LV Diastology E Decel Time 240.00 (160-240 msec) E/A Ratio 1.1 MED E' 5.80 (< 7 cm/sec) E'/MED E' Ratio 11.76 (>14) LAT E' 7.30 (<10 cm/sec) E/LAT E' Ratio 9.34 (>14) Aortic Valve AO Peak GR. 4.60 mmHg Mitral Valve MV E Max Justin. 68.00 (40-130 cm/s) MV A Velocity 63.00 (40-130 cm/s) E/A Ratio 1.08 MV Decel. Time 240.00 (160-240 ms) MV PHT 70.00 ms Pulmonary Valve PV Peak Velocity 66.00 (50-150 cm/s) Tricuspid Valve TR P. Velocity 268.00 cm/s RAP Estimate 10.00 mmHg RVSP 38.70 mmHg Left Ventricle Left atrium is mildly enlarged, left ventricle is normal size mild concentric left ventricular hypertrophy, estimated ejection fraction 55% with no regional wall motion abnormality, grade 1 diastolic dysfunction seen without tissue Doppler evidence of raise left atrial pressure. Right Ventricle Right atrium and right ventricle are mildly enlarged with normal contractility. Aortic Valve Aortic valve is minimally thickened and fibrosed there is no aortic stenosis or aortic insufficiency. Mitral Valve Mitral valve grossly normal, there is mild mitral regurgitation. Tricuspid Valve Tricuspid valve grossly normal, there is mild tricuspid regurgitation, calculated right ventricular systolic pressure 30 mmHg. Pulmonic Valve Pulmonic valve is poorly visualized. Great Vessels Aortic root is normal size. Inferior vena cava is normal size with normal inspiratory collapse. Pericardium Small circumferential pericardial effusion noted. Conclusion 1. Mild biatrial enlargement, normal left ventricular size, mild concentric left ventricular hypertrophy, estimated ejection fraction 55% with no regional wall motion abnormality, grade 1 diastolic dysfunction seen without tissue Doppler evidence of raise left atrial pressure. 2. Mildly enlarged right ventricle with normal contractility. 3. Thickened and calcified aortic valve without aortic stenosis aortic insufficiency. 4. Mild mitral and tricuspid regurgitation, calculated right ventricular systolic pressure 30 mmHg. 5. Small circumferential pericardial effusion noted. 6. Inferior vena cava is normal size with normal inspiratory collapse. Electronically signed by : Jamal Curran MD 06/23/2022 21:34:27
--- NOTE | 2022-06-23 | US_ITS ---
FINAL REPORT CLINICAL HISTORY: .SMOKER FINDINGS: ANKLE-BRACHIAL PRESSURE INDICES Pressure indices are as follows: RIGHT LOWER EXTREMITY: Ankle-brachial pressure index: 1.2 Comments: Normal LEFT LOWER EXTREMITY: Ankle-brachial pressure index: 1.4 Comments: Noncompressible. CONCLUSION: MORIS is normal on the right and the left is noncompressible. Reviewed, Interpreted and Dictated by Sanchez Matthews III, MD Transcribed by Justine Blakely Authenticated and [facility]
== END ==
PROVIDERS: PCP Emergency Medicine; Visit Provider Emergency Medicine
DX: R01.1 Cardiac murmur, unspecified (principal); R09.89 Other specified symptoms and signs involving the circulatory and respiratory systems
CPT/HCPCS: 93306; 93923

== ENCOUNTER 2022-10-23 11:53 | Emergency (ER) | payer MEDICARE, MEDICAID, SELFPAY ==
[2022-10-23 11:55] VITALS: BP 106/89; PULSE 89; RESP 17; TEMP 36.4; O2SAT 100; BMI 21.4
[2022-10-23 12:00] VITALS: BP 107/68; PULSE 82; RESP 20; O2SAT 98
--- NOTE | 2022-10-23 12:15 | PC.NURSE ---
pt resting in bed at this time with his eyes closed. pt offered ativan ordered by MD. pt reports he doesnt need any medications at this time and would just like some lunch
[2022-10-23 12:23] LABS: Basophils % 0.2 % (0.1-2.0); Eosinophils # 0.6 K/mm3 (0.0-0.4); Eosinophils % 4.5 % (0.1-12.0); Hematocrit 42.3 % (42.0-52.0); Hemoglobin 13.8 g/dL (14.1-18.0); Lymphocytes # 1.5 K/mm3 (0.7-4.5); Lymphocytes % 11.6 % (10-50); Mean Corpuscular HGB Conc 32.6 g/dL (31.8-35.4); Mean Corpuscular Hemoglobin 29.2 pg (27.0-31.2); Mean Corpuscular Volume 89.6 fl (80-94); Mean Platelet Volume 8.4 fl (7.4-10.4); Monocytes # 0.6 K/mm3 (0.1-1.0); Monocytes % 4.4 % (1.7-9.3); Neutrophils # 10.4 K/mm3 (1.8-7.8); Neutrophils % 79.3 % (37.0-80.0); Platelet Count 289 K/mm3 (142-424); Red Blood Count 4.72 M/mm3 (4.60-6.20); Red Cell Distribution Width 14.8 % (11.5-17.5); White Blood Count 13.2 K/mm3 (4.8-10.8)
[2022-10-23 12:30] LABS: Chloride 96 mmol/L (98-107)
[2022-10-23 12:31] LABS: Potassium 4.1 mmoL/L (3.5-5.1); Sodium 136 mmol/L (136-145)
[2022-10-23 12:32] VITALS: BP 97/59; PULSE 78; RESP 18; O2SAT 96
[2022-10-23 12:33] LABS: Alanine Aminotransferase 15 U/L (12-78); Alkaline Phosphatase 74 U/L (38-126); Anion Gap 14.1 mEq/L (5-15); Aspartate Amino Transferase 19 U/L (17-59); Bilirubin,Total 0.2 mg/dl (0.2-1.3); Blood Urea Nitrogen 14 mg/dl (9-20); Carbon Dioxide 30 mmol/L (22.0-30.0); Creatinine Clearance Estimated 66 mL/min (50-200); Estimated Glomerular Filt Rate 74 ml/min (>60); GFR (African American) 90 ML/MIN (>60)
[2022-10-23 12:34] LABS: Albumin Level 3.4 g/dl (3.5-5.0); Albumin/Globulin Ratio 1.2 (1.1-1.8); Calcium 8.5 mg/dl (8.4-10.2); Globulin 2.9 g/dL (1.3-3.2); Glucose 146 mg/dl (74-100); Magnesium 1.9 mg/dl (1.6-2.3); Total Protein,Serum 6.3 g/dl (6.3-8.2)
[2022-10-23 13:00] VITALS: BP 103/64; PULSE 78; RESP 20; O2SAT 96
--- NOTE | 2022-10-23 13:19 | PC.NURSE ---
this nurse ambulated the pt around the ER independently without difficulty.
--- NOTE | 2022-10-23 13:19 | HMH.EDGENADL ---
Discharge Plan Disposition Patient Disposition: Home, Self-Care Chief Complaint: Weakness Prescriptions Prescriptions: No Action lorazepam [Ativan] 0.5 mg tablet 0.5 mg PO BID PRN (Reason: agitation) Qty: 30 0RF olanzapine 10 MG tablet 10 mg PO TID magnesium hydroxide 400 MG/5 ML suspension 10 ml PO Q6 PRN (Reason: Constipation) buspirone 7.5 MG tablet 7.5 mg PO BID propranolol 20 MG tablet 20 mg PO TID hydroxyzine pamoate 25 MG capsule 25 mg PO QIDP PRN (Reason: Anxiety) aripiprazole 400 MG suspension,extended rel recon 400 mg IM DIRECTED Rx Instructions: IM every 4 weeks benztropine 0.5 MG tablet 0.5 mg PO HS clozapine 200 MG tablet 600 mg PO HS levofloxacin 500 MG tablet 500 mg PO DAILY 7 Days Qty: 7 0RF clindamycin HCl 300 MG capsule 300 mg PO TID 5 Days Qty: 15 0RF umeclidinium-vilanterol 1 EACH blister with device 1 inh IH DAILY Qty: 60 0RF divalproex 500 MG tablet,delayed release (DR/EC) 750 mg PO BID tamsulosin 0.4 MG capsule 0.4 mg PO DAILY docusate sodium 100 MG capsule 200 mg PO BID acetaminophen 325 MG tablet 325 mg PO Q6H PRN (Reason: As Needed For Fever Or Pain) Referrals Follow up/Referrals: Olman Pascual MD [Primary Care Provider] - See instructions Clinical Impressions Clinical Impression: Schizophrenia Discharge ED Provider: Thomas Contreras General Adult HPI General Chief complaint: Weakness Stated complaint: weakness Time Seen by Provider: 10/23/22 12:00 Mode of Arrival: EMS Source of Information: Patient Limitations: No Limitations Description of Symptoms (Recalled from ER Triage Doc. by RN): pt to ED via [facility] for weakness and dizziness and stated i want my medications changed pt reports a history of bipolar and schizophrenia and stated he feels like his meds need to be different. pt denies any SI/HI at this time. History of Present Illness HPI narrative: 67-year-old male presents with history of schizophrenia he says that he is weak and dizzy. Has not been eating and drinking well. He thinks he needs to be on a different medicine for bipolar and schizophrenia. No new hallucinations or SI HI. He is requesting a male as well. No chest pain shortness of air abdominal pain vomiting diarrhea or headaches Related Data Home Medications Medication Instructions Recorded Confirmed divalproex 500 mg tablet,delayed 750 mg PO BID SEIZURES 05/22/18 10/18/20 release tamsulosin 0.4 mg capsule 0.4 mg PO DAILY prostate 05/22/18 10/18/20 docusate sodium 100 mg capsule 200 mg PO BID STOOL SOFTENER 06/29/18 10/18/20 acetaminophen 325 mg tablet 325 mg PO Q6H PRN As Needed For 11/12/19 10/18/20 Fever Or Pain aripiprazole 400 mg intramuscular 400 mg IM DIRECTED Depression 10/18/20 10/18/20 suspension,extended release benztropine 0.5 mg tablet 0.5 mg PO HS P[place]INSONS 10/18/20 10/18/20 buspirone 7.5 mg tablet 7.5 mg PO BID Anxiety 10/18/20 10/18/20 clozapine 200 mg tablet 600 mg PO HS MOOD 10/18/20 10/18/20 hydroxyzine pamoate 25 mg capsule 25 mg PO QIDP PRN Anxiety 10/18/20 10/19/20 magnesium hydroxide 400 mg/5 mL 10 ml PO Q6 PRN Constipation 10/18/20 10/18/20 oral suspension olanzapine 10 mg tablet 10 mg PO TID unknown 10/18/20 10/18/20 propranolol 20 mg tablet 20 mg PO TID Hypertension 10/18/20 10/18/20 Previous Rx's Medication Instructions Recorded clindamycin HCl 300 mg capsule 300 mg PO TID 5 days #15 caps 10/22/20 levofloxacin 500 mg tablet 500 mg PO DAILY 7 days #7 tabs 10/22/20 umeclidinium 62.5 mcg-vilanterol 1 inh IH DAILY #60 device 10/22/20 25 mcg/actuation powdr for inhalation lorazepam 0.5 mg tablet (Ativan) 0.5 mg PO BID PRN agitation #30 05/21/22 tabs Allergies Allergy/AdvReac Type Severity Reaction Status Date / Time No Known Allergies Allergy Verified 12/06/18 13:32 [facility] Disclaimer: The information contained
--- NOTE | 2022-10-23 13:36 | PC.NURSE ---
called report to Jaimie at [facility] who stated they would find him a ride home.
[2022-10-23 15:02] VITALS: BP 115/84; PULSE 71; RESP 17; TEMP 36.6; O2SAT 98
== END 2022-10-23 15:08 | disposition home or self-care (01) ==
PROVIDERS: Emergency Provider Emergency Medicine; PCP Emergency Medicine
DX: R53.1 Weakness (principal); R42 Dizziness and giddiness; F20.9 Schizophrenia, unspecified; F17.210 Nicotine dependence, cigarettes, uncomplicated
CPT/HCPCS: 80053; 83735; 85025; 96374; 99284; 99285

== ENCOUNTER 2022-12-12 21:44 | Observation (INO) | payer MEDICARE, MEDICAID, SELFPAY ==
[2022-12-12 21:44] VITALS: BP 112/63; PULSE 93; RESP 16; TEMP 36.7; O2SAT 93; BMI 21.3
[2022-12-12 21:59] LABS: POC Glucose,Bedside 205 (70-110)
[2022-12-12 22:00] VITALS: BP 112/65; PULSE 85; O2SAT 96
--- NOTE | 2022-12-12 22:16 | CT_ITS ---
PROCEDURE INFORMATION: Exam: CT Head Without Contrast Exam date and time: 12/12/2022 10:29 PM Age: 67 years old Clinical indication: Altered mental status/memory loss; Additional info: AMS TECHNIQUE: Imaging protocol: Computed tomography of the head without contrast. Radiation optimization: All CT scans at this facility use at least one of these dose optimization techniques: automated exposure control; mA and/or kV adjustment per patient size (includes targeted exams where dose is matched to clinical indication); or iterative reconstruction. REPORTING DATA: Count of CT and Cardiac NM exams in prior 12 months: This patient has received [address] and 0 known cardiac nuclear medicine studies in the 12 months prior to the current study. COMPARISON: CT HEAD/BRAIN WO CON 06/13/2022 10:55 AM FINDINGS: Brain: No evidence for intracranial hemorrhage or extra-axial fluid collections. Cerebral ventricles: Hyperdense 4 mm lesion near the right foramen of Monro similar to 06/13/2022 consistent with colloid cyst. Ventricles appear nominal.Intracranial vascular calcifications. Pituitary gland and sella: Negative Paranasal sinuses: Visualized sinuses are unremarkable. No fluid levels. Mastoid air cells: Visualized mastoid air cells are well aerated. Orbital cavities: Negative. Parotid and submandibular glands: Negative Bones/joints: Unremarkable. No acute fracture. Soft tissues: Unremarkable. Vasculature: Negative. IMPRESSION: 1. No evidence for intracranial hemorrhage or extra-axial fluid collections. 2. Hyperdense 4 mm lesion near the right foramen of Monro similar to 06/13/2022 consistent with a colloid cyst. 3. Ventricles appear nominal. 4. Intracranial vascular calcifications.
--- NOTE | 2022-12-12 22:17 | XR_ITS ---
PROCEDURE INFORMATION: Exam: XR Chest Exam date and time: 12/12/2022 10:27 PM Age: 67 years old Clinical indication: Other: AMS TECHNIQUE: Imaging protocol: Radiologic exam of the chest. Views: 1 view. COMPARISON: CR XR CHEST PORTABLE 06/13/2022 11:10 AM FINDINGS: Lungs: Unremarkable. No consolidation. Pleural spaces: Unremarkable. No pleural effusion. No pneumothorax. Heart/Mediastinum: Unremarkable. No cardiomegaly. Bones/joints: Unremarkable. IMPRESSION: No acute findings.
--- NOTE | 2022-12-12 22:21 | HMH.EDGENADL ---
Discharge Plan Disposition Patient Disposition: Admitted Condition: Fair Chief Complaint: Altered Mental Status Prescriptions Prescriptions: No Action multivitamin Tablet 1 tab PO DAILY olanzapine 10 mg Tablet 10 mg PO TID divalproex 500 mg tablet,delayed release (DR/EC) 500 mg PO AM Patient Comments: GIVE 1 TABLET BY MOUTH EVERY MORNING;GIVE 2 TABLETS BY MOUTH AT BEDTIME divalproex 500 mg tablet,delayed release (DR/EC) 1,000 mg PO HS Patient Comments: GIVE 1 TABLET BY MOUTH EVERY MORNING;GIVE 2 TABLETS BY MOUTH AT BEDTIME levothyroxine 25 mcg tablet 25 mcg PO DAILY Patient Comments: GIVE 1 TABLET BY MOUTH EVERY MORNING lorazepam 0.5 mg Tablet 0.5 mg PO BID PRN (Reason: Anxiety) tamsulosin 0.4 mg capsule 0.4 mg PO HS Patient Comments: GIVE 1 CAPSULE BY MOUTH AT BEDTIME docusate sodium 100 mg capsule 200 mg PO BID Patient Comments: GIVE 2 CAPSULES (200MG) BY MOUTH TWICE DAILY melatonin 5 mg tablet 5 mg PO HSP PRN (Reason: Insomnia) Referrals Follow up/Referrals: Olman Pascual MD [Primary Care Provider] - See instructions Clinical Impressions Clinical Impression: Encephalopathy Instructions Patient Instructions: DI for Altered Mental Status Discharge ED Provider: Eros Meyers General Adult HPI General Chief complaint: Altered Mental Status Stated complaint: Altered Mental Status Time Seen by Provider: 12/12/22 21:52 Mode of Arrival: EMS Source of Information: EMS Limitations: Altered Mental Status Description of Symptoms (Recalled from ER Triage Doc. by RN): 67 M presents via EMS after he was found passed out sitting outside of [facility]. EMS report patient is a resident at [facility]. He has taken his night time meds according to the staff there, and then he went out for a walk. Patient's night time medications are unknown at this time. VSS, FSBS 193. GCS 14 History of Present Illness HPI narrative: MergePatient is a 67-year-old male resident of [facility] department for evaluation of altered mental status. History is obtained largely by EMS report as patient is altered upon arrival. Patient is a resident at [facility], took his nighttime medications including an antipsychotic and melatonin when he went [place] a walk [place] smelling of alcohol, GCS 14 in route. Upon arrival patient is altered however arousable to noxious stimuli. No other history is able to be obtained at this time. Per chart review patient has a past medical history of coronary artery disease and arm tingling. Related Data Home Medications Medication Instructions Recorded Confirmed divalproex 500 mg tablet,delayed 1,000 mg PO HS Seizure control 12/12/22 12/12/22 release divalproex 500 mg tablet,delayed 500 mg PO AM Seizure control 12/12/22 12/12/22 release docusate sodium 100 mg capsule 200 mg PO BID Constipation 12/12/22 12/12/22 levothyroxine 25 mcg tablet 25 mcg PO DAILY Thyroid 12/12/22 12/12/22 lorazepam 0.5 mg tablet 0.5 mg PO BID PRN Anxiety 12/12/22 12/12/22 melatonin 5 mg tablet 5 mg PO HSP PRN Insomnia 12/12/22 12/12/22 multivitamin 1 tab PO DAILY Supplement 12/12/22 12/12/22 olanzapine 10 mg tablet 10 mg PO TID Psych 12/12/22 12/12/22 tamsulosin 0.4 mg capsule 0.4 mg PO HS Prostate 12/12/22 12/12/22 Allergies Allergy/AdvReac Type Severity Reaction Status Date / Time No Known Allergies Allergy Verified 12/06/18 13:32 [facility] Disclaimer: The information contained in this section may have been updated after the patient was seen, as this information can be updated by other users. Medical History (Updated 12/12/22 @ 23:07 by Eros Meyers MD) Abnormal ultrasound Bilateral arm numbness and tingling while sleeping Bilateral arm pain CAD (coronary artery disease) Hypotension Tachycardia Social History Smoking
[2022-12-12 22:22] LABS: Chloride 101 mmol/L (98-107)
--- NOTE | 2022-12-12 22:22 | PC.NURSE ---
Pt swabbed at this, specimen sent to lab. Patient was able to tell me his name
[2022-12-12 22:23] LABS: Potassium 3.6 mmoL/L (3.5-5.1); Sodium 137 mmol/L (136-145)
[2022-12-12 22:24] LABS: Coronavirus 19, PCR Not Detected (NotDetected); Influenza A, PCR Not Detected (NotDetected); Influenza B, PCR Not Detected (NotDetected)
[2022-12-12 22:25] LABS: Alanine Aminotransferase 24 U/L (12-78); Aspartate Amino Transferase 41 U/L (17-59); Blood Urea Nitrogen 21 mg/dl (9-20); Creatinine Clearance Estimated 60 mL/min (50-200); Estimated Glomerular Filt Rate 74 ml/min (>60); GFR (African American) 90 ML/MIN (>60)
[2022-12-12 22:26] LABS: Albumin Level 3.5 g/dl (3.5-5.0); Albumin/Globulin Ratio 1.2 (1.1-1.8); Alkaline Phosphatase 81 U/L (38-126); Anion Gap 12.6 mEq/L (5-15); Bilirubin,Total 0.2 mg/dl (0.2-1.3); Calcium 8.4 mg/dl (8.4-10.2); Carbon Dioxide 27 mmol/L (22.0-30.0); Glucose 186 mg/dl (74-100); Total Protein,Serum 6.5 g/dl (6.3-8.2)
[2022-12-12 22:28] LABS: VBG Base Excess 1.8 mmol/L (-2.4-2.3); VBG HCO3 26.2 mmol/L (23-30); VBG Oxygen Saturation 98.3 % (50-70); VBG PCO2 40.7 mmol/L (35-51); VBG PH 7.43 mmol/L (7.31-7.41); VBG PO2 127.6 mmol/L (28-40); VBG Total CO2 27.4 mmol/L (23-27)
[2022-12-12 22:29] LABS: Ethyl Alcohol < 10 mg/dl (0-10)
--- NOTE | 2022-12-12 22:35 | ECG_ITS ---
APPROVED REPORT Exam: Resting ECG HR:78 bpm ECG Measurements Heart Rate 78 AXES IL 140 P 69 QRSd 101 QRS 78 QT 384 T 67 QTc 417 Conclusion SINUS RHYTHM NONSPECIFIC ST & T-WAVE ABNORMALITY BORDERLINE ECG UNCONFIRMED REPORT Electronically signed by : Jose Cortes MD 12/13/2022 15:03:34
[2022-12-12 22:45] LABS: Basophils # 0.1 K/mm3 (0-0.2); Basophils % 0.5 % (0.1-2.0); Eosinophils # 1.1 K/mm3 (0.0-0.4); Eosinophils % 12.2 % (0.1-12.0); Hemoglobin 11.2 g/dL (14.1-18.0); Lymphocytes # 1.8 K/mm3 (0.7-4.5); Lymphocytes % 20.1 % (10-50); Mean Corpuscular HGB Conc 32.1 g/dL (31.8-35.4); Mean Corpuscular Hemoglobin 28.1 pg (27.0-31.2); Mean Corpuscular Volume 87.7 fl (80-94); Mean Platelet Volume 12.7 fl (7.4-10.4); Monocytes # 0.7 K/mm3 (0.1-1.0); Monocytes % 7.5 % (1.7-9.3); Neutrophils # 5.2 K/mm3 (1.8-7.8); Neutrophils % 59.5 % (37.0-80.0); Red Blood Count 3.99 M/mm3 (4.60-6.20); Red Cell Distribution Width 15.9 % (11.5-17.5); White Blood Count 8.7 K/mm3 (4.8-10.8)
[2022-12-12 22:47] LABS: Platelet Count 86 K/mm3 (142-424)
[2022-12-12 22:51] LABS: Amphetamine/Metha Screen,Urine Negative ng/ml (<1000)
[2022-12-12 22:52] LABS: Barbiturates Screen,Urine Negative ng/ml (<200)
[2022-12-12 22:53] LABS: Benzodiazepines Screen,Urine Negative ng/ml (<200); Cannabinoid Screen,Urine Negative ng/ml (<50)
[2022-12-12 22:54] LABS: Cocaine Screen,Urine Negative ng/ml (<300)
[2022-12-12 22:55] LABS: Methadone Screen,Urine Negative ng/ml (<300); Opiate Screen,Urine Negative ng/ml (<300)
[2022-12-12 22:56] LABS: Phencyclidine Screen,Urine Negative ng/ml (<25)
--- NOTE | 2022-12-12 23:05 | PC.NURSE ---
House notified of admission
--- NOTE | 2022-12-12 23:10 | PC.NURSE ---
Registration notified of admission. Pt assigned to room 205 to the hospitalist for thrombocytopenia, OBS.
--- NOTE | 2022-12-12 23:33 | PC.NURSE ---
Hospital mid-level here in ED refusing to admit patient. machining supervisor notified
--- NOTE | 2022-12-12 23:35 | PC.NURSE ---
Hospitalist spoke with ED MD about observing the patient down here in the ED instead of admitting. Hospitalist told us we do not have psych on the weekends. Explained to hospitalist that patient did not have an acute psych issue. Spoke with [facility] [employer] Building Designer related to the issue.
--- NOTE | 2022-12-12 23:49 | PC.NURSE ---
sanitary landfill supervisor stated he spoke to hospitalist mid level who is now okay to admit patient. Report called to [facility]- waiting for 2nd floor transport
--- NOTE | 2022-12-12 23:52 | EXP.HP ---
History of Present Illness *Admission Date: 12/12/22 *Reason for visit:: found down/sleeping at the gas station *History of present illness: This is a 67 M resident of [facility], with well known PMHx of schizophrenia, COPD, CAD, who was brought in via EMS after he was found on the ground outside of [employer] [place]. Data collected from ED physicians documentation and EMS, as well as chart review. Patient continue on deep sleep state, and having difficulty to arouse. EMS reported that apparently he took his nighttime medication, valproic acid and melatonin are included, and then he went out for a walk. However this information is not confirmed. At ER initial evaluation found vital signs stable, FSBS 193. GCS 14, patient was reported to be altered upon arrival unknown if this is his baseline. Patient not cooperative with interview. Labs are grossly unremarkable. CT of the head was obtained as well as a chest x-ray. UA toxicology obtained, findings discussed with the ER doctor. Attempted to contact patient facility. Apparently there is no way to transfer the patient back to his place. I agreed to keep him overnight for observation. Patient will be reassessed for mental status improved. [facility] Disclaimer: The information contained in this section may have been updated after the patient was seen, as this information can be updated by other users. Medical History (Updated 12/13/22 @ 00:34 by Farhat Alicea APRN) Abnormal ultrasound Bilateral arm numbness and tingling while sleeping Bilateral arm pain CAD (coronary artery disease) Hypotension Tachycardia Social History (Updated 12/13/22 @ 00:37 by Addis Wise RN) Smoking Status: Current every day smoker tobacco type: cigarettes packs per day: 1 second hand exposure: No (UNABLE TO DETERMINE R/T PT NOT COOPERATING) alcohol intake: never substance use type: crack/cocaine current occupational status: disabled Travel in the last 8 weeks: None household members: other housing: other caffeine: Yes Review of Systems Review of Systems Review of systems:: unable to obtain and pertinent systems reviewed and negative unless documented below Meds Home Medications and Allergies Home Medications Medication Instructions Recorded Confirmed Type divalproex 500 mg tablet,delayed 500 mg PO AM Seizure control 12/12/22 12/12/22 History release docusate sodium 100 mg capsule 200 mg PO BID Constipation 12/12/22 12/12/22 History levothyroxine 25 mcg tablet 25 mcg PO DAILY Thyroid 12/12/22 12/12/22 History lorazepam 0.5 mg tablet 0.5 mg PO BID PRN Anxiety 12/12/22 12/12/22 History melatonin 5 mg tablet 5 mg PO HSP PRN Insomnia 12/12/22 12/12/22 History multivitamin 1 tab PO DAILY Supplement 12/12/22 12/12/22 History olanzapine 10 mg tablet 10 mg PO TID Psych 12/12/22 12/12/22 History tamsulosin 0.4 mg capsule 0.4 mg PO HS Prostate 12/12/22 12/12/22 History divalproex 500 mg tablet,delayed 500 mg PO HS Seizure control 30 12/13/22 12/12/22 Rx release days #0 tabs New Prescriptions to Start Prescriptions: Allergies Allergy/AdvReac Type Severity Reaction Status Date / Time No Known Allergies Allergy Verified 12/06/18 13:32 Exam Data for Last 24 hours Vital signs and Labs for Last 24 Hours: Temp Pulse Resp BP Pulse Ox 98.1 F 85 16 112/65 96 12/12/22 21:44 12/12/22 22:00 12/12/22 21:44 12/12/22 22:00 12/12/22 22:00 Laboratory Results - last 24 hr 12/12/22 21:52: POC Glucose 205 H 12/12/22 21:54: WBC 8.7, RBC 3.99 L, Hgb 11.2 L, Hct 35.0 L, MCV 87.7, MCH 28.1, MCHC 32.1, RDW 15.9, Plt Count 86 L, MPV 12.7 H, Neut % (Auto) 59.5, Lymph % (Auto) 20.1, Lasalle % (Auto) 7.5, Eos % (Auto) 12.2 H, Baso % (Auto) 0.5, Neut # (Auto) 5.2, Lymph # (Auto) 1.8, Lasalle # (Auto) 0.7, Eos # (Auto) 1.1 H, Baso # (Auto) 0.1, Sodium 137, Potassium 3.6, Chloride 101, Carbon Dioxide 27, Anion Gap 12.6, BUN 21 H, Creatinine 1.00, Trisha
[2022-12-13 00:01] VITALS: BP 111/72; PULSE 84; RESP 18; TEMP 36.8; O2SAT 94
--- NOTE | 2022-12-13 00:06 | PC.NURSE ---
PT ARRIVED TO FLOOR AT THIS TIME
--- NOTE | 2022-12-13 00:45 | PC.NURSE ---
RN attempted to do admission questions with patient, Patient hard to arouse. GCS of 11. Patient does respond to pain and knows his name when awake.
[2022-12-13 01:18] VITALS: BP 111/72; PULSE 73; RESP 22; TEMP 36.7; O2SAT 95; BMI 20.1
[2022-12-13 04:00] VITALS: BP 139/88; PULSE 70; PULSE 77; RESP 18; TEMP 36.4; O2SAT 96; BMI 20.3
--- NOTE | 2022-12-13 04:55 | PC.NURSE ---
Since arriving to he floor the patient has rested in bed. Patient is still AMS with a GCS of 11 since coming to the floor. The patient has stated no complaints.
--- NOTE | 2022-12-13 05:39 | PC.NURSE ---
Patient is awake and Ax) x4. Patient passed a bedside swallow exam.
[2022-12-13 05:54] LABS: POC Glucose,Bedside 79 (70-110)
--- NOTE | 2022-12-13 07:11 | EXP.DC.SUM ---
General Admission date:: 12/11/22 Discharge date: 12/13/22 HPI HPI HPI: This is a 67 M resident of [facility], with well known PMHx of schizophrenia, COPD, CAD, who was brought in via EMS after he was found on the ground outside of [place] [place]. Data collected from ED physicians documentation and EMS, as well as chart review. Patient continue on deep sleep state, and having difficulty to arouse. EMS reported that apparently he took his nighttime medication, valproic acid and melatonin are included, and then he went out for a walk. However this information is not confirmed. At ER initial evaluation found vital signs stable, FSBS 193. GCS 14, patient was reported to be altered upon arrival unknown if this is his baseline. Patient not cooperative with interview. Labs are grossly unremarkable. CT of the head was obtained as well as a chest x-ray. UA toxicology obtained, findings discussed with the ER doctor. Attempted to contact patient facility. Apparently there is no way to transfer the patient back to his place. I agreed to keep him overnight for observation. Patient will be reassessed for mental status improved. Hospital Course Hospital Course Hospital Course: 67-year-old gentleman who is a resident at [facility]. Admitted after being found somnolent last night by EMS. Suspect secondary to his valproic acid. Decreased his VPA to 500 mg twice daily (decreased evening dose from 1000 mg to 500 mg). VPA level pending at time of discharge. Patient returned to baseline mentation by following morning. No indications of infection. Tolerating p.o. intake, stable on room air, afebrile. Morning labs at baseline. Stable for discharge back to personal [facility]. No additional changes made to medications Exam Data for Last 24 hours Vital signs and Labs for Last 24 Hours: Temp Pulse Resp BP Pulse Ox 97.6 F 70 18 139/88 96 12/13/22 04:00 12/13/22 04:00 12/13/22 04:00 12/13/22 04:00 12/13/22 04:00 Laboratory Results - last 24 hr 12/12/22 21:52: POC Glucose 205 H 12/12/22 21:54: WBC 8.7, RBC 3.99 L, Hgb 11.2 L, Hct 35.0 L, MCV 87.7, MCH 28.1, MCHC 32.1, RDW 15.9, Plt Count 86 L, MPV 12.7 H, Neut % (Auto) 59.5, Lymph % (Auto) 20.1, Rock % (Auto) 7.5, Eos % (Auto) 12.2 H, Baso % (Auto) 0.5, Neut # (Auto) 5.2, Lymph # (Auto) 1.8, Rock # (Auto) 0.7, Eos # (Auto) 1.1 H, Baso # (Auto) 0.1, Sodium 137, Potassium 3.6, Chloride 101, Carbon Dioxide 27, Anion Gap 12.6, BUN 21 H, Creatinine 1.00, Estimated Creat Clear 60, Estimated GFR 74, Est GFR ( Amer) 90, Glucose 186 H, Calcium 8.4, Total Bilirubin 0.2, AST 41, ALT 24, Alkaline Phosphatase 81, Total Protein 6.5, Albumin 3.5, Globulin 3.0, Albumin/Globulin Ratio 1.2, Plasma/Serum Alcohol < 10 12/12/22 22:16: VBG pH 7.43 H, VBG pCO2 40.7, VBG pO2 127.6 H, VBG HCO3 26.2, VBG Total CO2 27.4 H, VBG O2 Saturation 98.3 H, VBG Base Excess 1.8 12/12/22 22:20: SARS-CoV-2 (PCR) Not detected, Influenza A Untype (PCR) Not detected, Influenza Type B (PCR) Not detected 12/12/22 22:23: Urine Opiates Screen Negative, Urine Methadone Screen Negative, Ur Barbituates Screen Negative, Ur Phencyclidine Scrn Negative, Ur Amphetamines Screen Negative, U Benzodiazepines Scrn Negative, Urine Cocaine Screen Negative, U Marijuana (THC) Screen Negative 12/13/22 05:48: POC Glucose 79 I & O for Last 24 hours: Intake & Output 12/10/22 12/11/22 12/12/22 12/13/22 23:59 23:59 23:59 23:59 Output Total 0 / 0 Balance 0 / 0 Weight 60.01 kg 57.351 kg Constitutional Constitutional: no acute distress, thin and chronically ill appearing *Routine HEENT Exam Head: Present normocephalic Eye: Present EOMI and PERRL ENT: Present mucous membranes moist Comments: edentulous *Routine Neck Exam Neck: Present supple; Absent lymphadenopathy *Routine Respiratory Exam Respiratory: Present CTA bilaterally *Routine Cardiovascular Exam Cardiovascular: Present RRR *Routine Abdominal Ex
[2022-12-13 07:29] VITALS: BP 128/70; PULSE 87; RESP 16; TEMP 36.3; O2SAT 96
[2022-12-13 07:46] LABS: Chloride 100 mmol/L (98-107); Potassium 3.4 mmoL/L (3.5-5.1); Sodium 137 mmol/L (136-145)
[2022-12-13 07:49] LABS: Alanine Aminotransferase 19 U/L (12-78); Albumin Level 3.4 g/dl (3.5-5.0); Albumin/Globulin Ratio 1.2 (1.1-1.8); Alkaline Phosphatase 82 U/L (38-126); Anion Gap 11.4 mEq/L (5-15); Aspartate Amino Transferase 31 U/L (17-59); Bilirubin,Total 0.2 mg/dl (0.2-1.3); Blood Urea Nitrogen 17 mg/dl (9-20); Carbon Dioxide 29 mmol/L (22.0-30.0); Creatinine Clearance Estimated 57 mL/min (50-200); Estimated Glomerular Filt Rate 84 ml/min (>60); GFR (African American) 102 ML/MIN (>60); Globulin 2.9 g/dL (1.3-3.2); Total Protein,Serum 6.3 g/dl (6.3-8.2)
[2022-12-13 07:50] LABS: Calcium 8.1 mg/dl (8.4-10.2); Glucose 142 mg/dl (74-100)
[2022-12-13 07:55] LABS: Basophils # 0.1 K/mm3 (0-0.2); Basophils % 0.4 % (0.1-2.0); Eosinophils # 1.6 K/mm3 (0.0-0.4); Eosinophils % 11.7 % (0.1-12.0); Hematocrit 39.9 % (42.0-52.0); Lymphocytes # 1.9 K/mm3 (0.7-4.5); Lymphocytes % 13.6 % (10-50); Mean Corpuscular HGB Conc 31.7 g/dL (31.8-35.4); Mean Corpuscular Volume 88.3 fl (80-94); Mean Platelet Volume 8.6 fl (7.4-10.4); Monocytes # 1.1 K/mm3 (0.1-1.0); Monocytes % 8.1 % (1.7-9.3); Neutrophils % 66.2 % (37.0-80.0); Red Blood Count 4.52 M/mm3 (4.60-6.20); Red Cell Distribution Width 15.7 % (11.5-17.5); White Blood Count 11.8 K/mm3 (4.8-10.8)
[2022-12-13 08:00] VITALS: PULSE 90
[2022-12-13 08:02] LABS: Platelet Count 55 K/mm3 (142-424)
[2022-12-13 08:03] LABS: Hemoglobin 12.8 g/dL (14.1-18.0)
--- NOTE | 2022-12-16 10:38 | CARE MANAGER ---
Unable to reach patient to discuss recent discharge. Call attempted x2 and VM left for him to return call.
[2023-01-26 09:54] LABS: Free Valproic Acid (Depakote) 20.1
== END 2022-12-13 10:38 | disposition home or self-care (01) ==
LOC: ER 23:07 → 2ND 12-13 00:12
PROVIDERS: Nurse Practitioner Family; Admitting Provider Internal Medicine Adolescent Medicine; Emergency Provider Emergency Medicine; PCP Emergency Medicine; Visit Provider Internal Medicine Adolescent Medicine
DX: T42.6X1A Poisoning by other antiepileptic and sedative-hypnotic drugs, accidental (unintentional), initial encounter (principal); R40.0 Somnolence; F20.9 Schizophrenia, unspecified; I25.10 Atherosclerotic heart disease of native coronary artery without angina pectoris; E03.9 Hypothyroidism, unspecified; N40.1 Benign prostatic hyperplasia with lower urinary tract symptoms; Z60.9 Problem related to social environment, unspecified; G93.40 Encephalopathy, unspecified; F17.210 Nicotine dependence, cigarettes, uncomplicated; N40.0 Benign prostatic hyperplasia without lower urinary tract symptoms
CPT/HCPCS: G0378; 36415; 70450; 71045; 80053; 80165; 80305; 82803; 82962; 85025; 87635; 87636; 93005; 99285; C9803; U0003; U0005

== ENCOUNTER 2023-02-05 20:24 | Emergency (ER) | payer MEDICARE, MEDICAID, SELFPAY ==
[2023-02-05 20:33] VITALS: BP 133/76; PULSE 90; RESP 20; TEMP 37.6; O2SAT 98
--- NOTE | 2023-02-05 21:06 | CT_ITS ---
PROCEDURE INFORMATION: Exam: CT Head Without Contrast Exam date and time: 02/05/2023 9:25 PM Age: 67 years old Clinical indication: Altered mental status/memory loss; Additional info: AMS TECHNIQUE: Imaging protocol: Computed tomography of the head without contrast. Radiation optimization: All CT scans at this facility use at least one of these dose optimization techniques: automated exposure control; mA and/or kV adjustment per patient size (includes targeted exams where dose is matched to clinical indication); or iterative reconstruction. REPORTING DATA: Count of CT and Cardiac NM exams in prior 12 months: This patient has received 2 known CTs and 0 known cardiac nuclear medicine studies in the 12 months prior to the current study. COMPARISON: CT HEAD/BRAIN WO CON 12/12/2022 10:29 PM FINDINGS: Brain: There are scattered white matter changes with areas of hypodensity which are nonspecific but most likely reflect chronic microvascular disease. No evidence for acute intracranial hemorrhage, midline shift, or mass effect. No compelling evidence for acute transcortical infarct. Cerebral ventricles: Stable colloid cyst at the foramen of Monro. There is enlargement of the ventricles and sulci compatible with age-related atrophy. Paranasal sinuses: Visualized sinuses are unremarkable. No fluid levels. Mastoid air cells: Visualized mastoid air cells are well aerated. Bones/joints: Unremarkable. No acute fracture. Soft tissues: Unremarkable. IMPRESSION: Age-related changes without acute abnormality detected.
--- NOTE | 2023-02-05 21:06 | XR_ITS ---
PROCEDURE INFORMATION: Exam: XR Chest Exam date and time: 02/05/2023 9:23 PM Age: 67 years old Clinical indication: Other: AMS TECHNIQUE: Imaging protocol: Radiologic exam of the chest. Views: 1 view. COMPARISON: CR XR CHEST PORTABLE 12/12/2022 10:27 PM FINDINGS: Lungs: Unremarkable. No consolidation. Pleural spaces: Unremarkable. No pleural effusion. No pneumothorax. Heart/Mediastinum: Unremarkable. No cardiomegaly. Vasculature: There are calcifications of the aortic arch. Bones/joints: Unremarkable. IMPRESSION: No dense parenchymal consolidation, pleural effusion, or pneumothorax.
--- NOTE | 2023-02-05 21:12 | ECG_ITS ---
APPROVED REPORT Exam: Resting ECG HR:88 bpm ECG Measurements Heart Rate 88 AXES AK 128 P 69 QRSd 98 QRS 69 QT 343 T 62 QTc 388 Conclusion SINUS RHYTHM POSSIBLE LEFT ATRIAL ENLARGEMENT [-0.1mV P-WAVE IN V1/V2] MODERATE ST DEPRESSION [0.05+ mV ST DEPRESSION] ABNORMAL ECG UNCONFIRMED REPORT Electronically signed by : Jose Cortes MD 02/06/2023 15:30:01
--- NOTE | 2023-02-05 21:15 | HMH.EDGENADL ---
Discharge Plan Disposition Patient Disposition: Home, Self-Care Condition: Fair Chief Complaint: Altered Mental Status Prescriptions Prescriptions: No Action lorazepam 0.5 mg tablet 0.5 mg PO BID PRN (Reason: Anxiety) Qty: 60 2RF multivitamin Tablet 1 tab PO DAILY olanzapine 10 mg Tablet 10 mg PO TID divalproex 500 mg tablet,delayed release (DR/EC) 500 mg PO AM Patient Comments: GIVE 1 TABLET BY MOUTH EVERY MORNING;GIVE 2 TABLETS BY MOUTH AT BEDTIME levothyroxine 25 mcg tablet 25 mcg PO DAILY Patient Comments: GIVE 1 TABLET BY MOUTH EVERY MORNING tamsulosin 0.4 mg capsule 0.4 mg PO HS Patient Comments: GIVE 1 CAPSULE BY MOUTH AT BEDTIME docusate sodium 100 mg capsule 200 mg PO BID Patient Comments: GIVE 2 CAPSULES (200MG) BY MOUTH TWICE DAILY melatonin 5 mg tablet 5 mg PO HSP PRN (Reason: Insomnia) divalproex 500 mg tablet,delayed release (DR/EC) 500 mg PO HS 30 Days Qty: 0 0RF Patient Comments: GIVE 1 TABLET BY MOUTH EVERY MORNING;GIVE 2 TABLETS BY MOUTH AT BEDTIME Combivent Respimat 20-100 mcg/actuation mist 1 puff inhalation QID Rx Instructions: space evenly during waking hours Referrals Follow up/Referrals: Olman Pascual MD [Primary Care Provider] - See instructions Yady Farris MD [Staff Physician] - See instructions Activity Restrictions/Add. Instructions Additional Instructions/Restrictions: At this time was felt you are safe to be discharged home. If new or worsening symptoms please do not hesitate to return the emergency department. Please call and arrange an appointment with Dr. Farris for next . Please take your medications which were previously prescribed to you for your schizophrenia. Clinical Impressions Clinical Impression: Schizophrenia, Thrombocytopenia Discharge ED Provider: Eros Meyers General Adult HPI General Chief complaint: Altered Mental Status Stated complaint: AMS, poss dehydrated Time Seen by Provider: 02/05/23 20:34 Mode of Arrival: Ambulatory Source of Information: Patient Limitations: No Limitations Description of Symptoms (Recalled from ER Triage Doc. by RN): Patient confused and rambling speech. States heis from [facility] and walked here. History of Present Illness HPI narrative: Patient is a 67-year-old male with past medical history of longstanding schizophrenia who presents the emergency department for evaluation of disorganized thinking. Patient is a resident of [facility], he was found altered and presented here for continued evaluation. Patient denies new pain. Per report patient has not been taking his medications over the last couple of days. Patient has no new homicidal suicidal ideation. Denies other acute complaints at this time, specifically chest pain, abdominal pain, shortness of breath, cough. Related Data Home Medications Medication Instructions Recorded Confirmed divalproex 500 mg tablet,delayed 500 mg PO AM Seizure control 12/12/22 02/05/23 release docusate sodium 100 mg capsule 200 mg PO BID Constipation 12/12/22 02/05/23 levothyroxine 25 mcg tablet 25 mcg PO DAILY Thyroid 12/12/22 02/05/23 melatonin 5 mg tablet 5 mg PO HSP PRN Insomnia 12/12/22 02/05/23 multivitamin 1 tab PO DAILY Supplement 12/12/22 02/05/23 olanzapine 10 mg tablet 10 mg PO TID Psych 12/12/22 02/05/23 tamsulosin 0.4 mg capsule 0.4 mg PO HS Prostate 12/12/22 02/05/23 ipratropium 20 mcg-albuterol 100 1 puff inhalation QID Breathing 02/05/23 02/05/23 mcg/actuation mist for inhalation Problems (Combivent Respimat) Previous Rx's Medication Instructions Recorded divalproex 500 mg tablet,delayed 500 mg PO HS Seizure control 30 12/13/22 release days #0 tabs lorazepam 0.5 mg tablet 0.5 mg PO BID PRN Anxiety #60 tabs 01/08/23 Allergies Allergy/AdvReac Type Severity Reaction Status Date / Time No Known Allergies Allergy Verified 12/06/18 13
[2023-02-05 21:23] LABS: Alanine Aminotransferase 16 U/L (12-78); Albumin Level 4.1 g/dl (3.5-5.0); Albumin/Globulin Ratio 1.2 (1.1-1.8); Alkaline Phosphatase 112 U/L (38-126); Anion Gap 13.4 mEq/L (5-15); Aspartate Amino Transferase 32 U/L (17-59); Bilirubin,Total 0.3 mg/dl (0.2-1.3); Blood Urea Nitrogen 24 mg/dl (9-20); Calcium 8.9 mg/dl (8.4-10.2); Carbon Dioxide 29 mmol/L (22.0-30.0); Chloride 104 mmol/L (98-107); Creatinine Clearance Estimated 53 mL/min (50-200); Estimated Glomerular Filt Rate 60 ml/min (>60); GFR (African American) 73 ML/MIN (>60); Globulin 3.3 g/dL (1.3-3.2); Glucose 86 mg/dl (74-100); Potassium 4.4 mmoL/L (3.5-5.1); Sodium 142 mmol/L (136-145); Total Protein,Serum 7.4 g/dl (6.3-8.2)
[2023-02-05 21:24] LABS: Basophils # 0.1 K/mm3 (0-0.2); Basophils % 0.5 % (0.1-2.0); Eosinophils # 0.7 K/mm3 (0.0-0.4); Eosinophils % 5.5 % (0.1-12.0); Hematocrit 38.8 % (42.0-52.0); Hemoglobin 12.7 g/dL (14.1-18.0); Lymphocytes # 1.1 K/mm3 (0.7-4.5); Mean Corpuscular HGB Conc 32.7 g/dL (31.8-35.4); Mean Corpuscular Hemoglobin 29.2 pg (27.0-31.2); Mean Corpuscular Volume 89.3 fl (80-94); Mean Platelet Volume 8.5 fl (7.4-10.4); Monocytes # 2.7 K/mm3 (0.1-1.0); Monocytes % 20.4 % (1.7-9.3); Neutrophils # 8.5 K/mm3 (1.8-7.8); Neutrophils % 65.5 % (37.0-80.0); Red Blood Count 4.35 M/mm3 (4.60-6.20); Red Cell Distribution Width 16.2 % (11.5-17.5)
[2023-02-05 21:25] LABS: Microscopic, Urine URINE MICROSCOPIC (MICROSCOPIC)
--- NOTE | 2023-02-05 21:32 | PC.NURSE ---
plt # is 17. UPDATED
[2023-02-05 21:33] LABS: Appearance,Urine CLEAR (Clear); Blood, Urine Negative (Negative); Color,Urine AMBER (Yellow); Glucose,Urine (UA) Negative (Negative); Ketones,Urine 1+ (Negative); Leukocyte Esterase,Urine Negative (Negative); Nitrate,Urine Negative (Negative); Protein,Urine TRACE (Negative); Specific Gravity, Urine >= 1.030 (1.005-1.030)
[2023-02-05 21:34] LABS: Platelet Count 17 K/mm3 (142-424)
[2023-02-05 21:35] LABS: MANUAL DIFFERENTIAL MANUAL DIFFERENTIAL (MANUAL DIFF)
--- NOTE | 2023-02-05 21:40 | PC.NURSE ---
Called [facility], no answer. Left a message for someone to contact us back about the pt. CR
[2023-02-05 21:45] LABS: Bilirubin,Urine 1+ (Negative)
[2023-02-05 21:50] LABS: Bacteria,Urine Trace /lpf; RBC,Urine Occasional #/hpf (0-3); Sperm,Urine 2+ /lpf; Squamous Epithelial Cell,Urine Occasional #/hpf (0-5); WBC,Urine Occasional #/hpf (0-3)
[2023-02-05 22:35] LABS: Eosinophils % 7 % (0-3); Lymphocytes % 16 % (10-50); Monocytes % 2 % (2-9); Neutrophils % 75 % (42-76); Total Cells Counted 100
[2023-02-05 22:36] LABS: Platelet Estimate Moderate Decrease; RBC Morphology Normal
--- NOTE | 2023-02-05 22:55 | PC.NURSE ---
checked on pt laying in bed call light at bs
[2023-02-05 23:00] VITALS: BP 114/64; PULSE 76; RESP 20; O2SAT 99
--- NOTE | 2023-02-05 23:37 | PC.NURSE ---
Called [facility] and they advised they do not have a bus driver supervisor that could come pepper picker the pt at this time. TEO
--- NOTE | 2023-02-05 23:38 | PC.NURSE ---
Called dispatch and they advised that they have an officer that will come pick him up and take him back. TEO
[2023-02-05 23:50] VITALS: BP 117/75; PULSE 66; RESP 16; TEMP 37; O2SAT 99
--- NOTE | 2023-02-06 09:39 | PC.NURSE ---
appointment made for pt with Dr. Farris per Dr. Meyers request. March 12 at 10 am. Ajay with care management is going to notify [facility] staff, I have called multiple times with no answer.
--- NOTE | 2023-02-06 10:08 | SW/DCPLANNER ---
Yumiko rajan/ [facility] sent staff to ED to transport patient back to [facility].
== END 2023-02-05 23:52 | disposition home or self-care (01) ==
PROVIDERS: Emergency Provider Emergency Medicine; PCP Emergency Medicine
DX: R41.82 Altered mental status, unspecified (principal)
CPT/HCPCS: 70450; 71045; 80053; 81001; 85007; 85025; 93005

== ENCOUNTER 2023-02-07 04:20 | Inpatient (IN) | payer MEDICARE, MEDICAID, SELFPAY ==
[2023-02-07] VITALS (28 sets, daily range): BP systolic 101–143; BP diastolic 50–91; PULSE 80–100; RESP 16–40; TEMP 35.9–38.8; O2SAT 86–100; BMI 20.7; BMI 18.3
--- NOTE | 2023-02-07 04:22 | XR_ITS ---
PROCEDURE INFORMATION: Exam: XR Chest Exam date and time: 02/07/2023 4:20 AM Age: 67 years old Clinical indication: Shortness of breath; Additional info: SOA TECHNIQUE: Imaging protocol: Radiologic exam of the chest. Views: 1 view. COMPARISON: CR XR CHEST PORTABLE 02/05/2023 9:23 PM FINDINGS: Lungs: Hyperinflation. Some right lower lobe airspace disease. Pleural spaces: Unremarkable. No pleural effusion. No pneumothorax. Heart/Mediastinum: Unremarkable. No cardiomegaly. Bones/joints: Unremarkable. IMPRESSION: Hyperinflation. Focal right lower lobe airspace disease.
--- NOTE | 2023-02-07 04:33 | ECG_ITS ---
APPROVED REPORT Exam: Resting ECG HR:94 bpm ECG Measurements Heart Rate 94 AXES MN 137 P 75 QRSd 105 QRS 80 QT 296 T 88 QTc 347 Conclusion SINUS RHYTHM POSSIBLE LEFT ATRIAL ENLARGEMENT [-0.1mV P-WAVE IN V1/V2] NONSPECIFIC ST & T-WAVE ABNORMALITY BORDERLINE ECG UNCONFIRMED REPORT Electronically signed by : Jose Cortes MD 02/08/2023 12:35:06
[2023-02-07 04:40] LABS: Chloride 103 mmol/L (98-107)
[2023-02-07 04:41] LABS: Potassium 3.9 mmoL/L (3.5-5.1); Sodium 138 mmol/L (136-145)
[2023-02-07 04:43] LABS: Blood Urea Nitrogen 31 mg/dl (9-20); Creatinine Clearance Estimated 66 mL/min (50-200); Estimated Glomerular Filt Rate 74 ml/min (>60); GFR (African American) 90 ML/MIN (>60)
[2023-02-07 04:44] LABS: Alanine Aminotransferase 22 U/L (12-78); Albumin Level 3.6 g/dl (3.5-5.0); Albumin/Globulin Ratio 1.2 (1.1-1.8); Alkaline Phosphatase 90 U/L (38-126); Anion Gap 11.9 mEq/L (5-15); Aspartate Amino Transferase 45 U/L (17-59); Bilirubin,Total 0.6 mg/dl (0.2-1.3); Calcium 8.6 mg/dl (8.4-10.2); Carbon Dioxide 27 mmol/L (22.0-30.0); Glucose 193 mg/dl (74-100); Total Protein,Serum 6.6 g/dl (6.3-8.2)
--- NOTE | 2023-02-07 04:44 | PC.NURSE ---
spoke with Arnold, pharmacist for vanco dosing
[2023-02-07 04:45] LABS: Basophils # 0.1 K/mm3 (0-0.2); Basophils % 0.3 % (0.1-2.0); Eosinophils # 0.5 K/mm3 (0.0-0.4); Eosinophils % 2.2 % (0.1-12.0); Hematocrit 39.9 % (42.0-52.0); Hemoglobin 12.8 g/dL (14.1-18.0); Lymphocytes # 3.5 K/mm3 (0.7-4.5); Lymphocytes % 15.4 % (10-50); Mean Corpuscular HGB Conc 32.1 g/dL (31.8-35.4); Mean Corpuscular Hemoglobin 29.1 pg (27.0-31.2); Mean Corpuscular Volume 90.5 fl (80-94); Mean Platelet Volume 9.5 fl (7.4-10.4); Monocytes # 2.1 K/mm3 (0.1-1.0); Monocytes % 9.2 % (1.7-9.3); Neutrophils # 16.7 K/mm3 (1.8-7.8); Red Blood Count 4.41 M/mm3 (4.60-6.20); Red Cell Distribution Width 16.1 % (11.5-17.5); White Blood Count 22.8 K/mm3 (4.8-10.8)
[2023-02-07 04:50] LABS: VBG Base Excess 1.9 mmol/L (-2.4-2.3); VBG HCO3 27.6 mmol/L (23-30); VBG Oxygen Saturation 98.8 % (50-70); VBG PCO2 52.1 mmol/L (35-51); VBG PH 7.34 mmol/L (7.31-7.41); VBG PO2 158.9 mmol/L (28-40); VBG Total CO2 29.2 mmol/L (23-27)
[2023-02-07 04:57] LABS: Lactic Acid 1.4 mmol/L (0.7-2.1)
[2023-02-07 04:57] LABS: Platelet Count 130 K/mm3 (142-424)
[2023-02-07 05:00] LABS: MANUAL DIFFERENTIAL MANUAL DIFFERENTIAL (MANUAL DIFF)
[2023-02-07 05:28] LABS: Eosinophils % 4 % (0-3); Lymphocytes % 19 % (10-50); Monocytes % 1 % (2-9); Neutrophils % 76 % (42-76); Total Cells Counted 100
[2023-02-07 05:29] LABS: Platelet Estimate Clumped; RBC Morphology Normal
--- NOTE | 2023-02-07 05:33 | CT_ITS ---
PROCEDURE INFORMATION: Exam: CTA Chest With Contrast Exam date and time: 02/07/2023 6:25 AM Age: 67 years old Clinical indication: Shortness of breath; Additional info: SOA TECHNIQUE: Imaging protocol: Computed tomographic angiography of the chest with contrast. Exam focused on the arteries. 3D rendering (Not supervised by radiologist): MIP and/or 3D reconstructed images were created by the technologist. Radiation optimization: All CT scans at this facility use at least one of these dose optimization techniques: automated exposure control; mA and/or kV adjustment per patient size (includes targeted exams where dose is matched to clinical indication); or iterative reconstruction. Contrast material: ISOVUE; Contrast volume: 70 ml; Contrast route: INTRAVENOUS (IV); REPORTING DATA: Count of CT and Cardiac NM exams in prior 12 months: This patient has received 3 known CTs and 0 known cardiac nuclear medicine studies in the 12 months prior to the current study. COMPARISON: [facility] CT angio chest 07/26/2018 1:59 PM FINDINGS: Pulmonary arteries: No evidence of pulmonary embolus. Aorta: Unremarkable. No aortic aneurysm. No aortic dissection. Lungs: Some patchy airspace disease in the right lung base. Small amount is also seen in the left lower lobe. Pleural spaces: Unremarkable. No pneumothorax. No pleural effusion. Heart: Unremarkable. No cardiomegaly. No pericardial effusion. Coronary arteries: Coronary athero sclerosis. Lymph nodes: Unremarkable. No enlarged lymph nodes. Bones/joints: Unremarkable. No acute fracture. Soft tissues: Unremarkable. IMPRESSION: No evidence of pulmonary embolus. Patchy bibasilar airspace disease, atelectasis versus early infiltrate. Coronary atherosclerosis.
--- NOTE | 2023-02-07 06:38 | HMH.EDGENADL ---
Discharge Plan Disposition Patient Disposition: Admitted Clinical Impressions Clinical Impression: Altered mental status Qualifiers: Altered mental status type: coma Coma depth: Chazy coma 9-12 Coma timing: in the field (EMT or ambulance) Qualified Code(s): R40.2421 - Ranjan coma scale score 9-12, in the field [EMT or ambulance] Pneumonia Qualifiers: Pneumonia type: aspiration pneumonia Aspiration pneumonia type: unspecified Laterality: right Lung location: lower lobe of lung Qualified Code(s): J69.0 - Pneumonitis due to inhalation of food and vomit Discharge ED Provider: Emily Clark Adult HPI <Emily Clark MD - Last Filed: 02/07/23 07:44> General Chief complaint: Shortness of Breath/Dyspnea Stated complaint: unresponsive Time Seen by Provider: 02/07/23 04:26 Mode of Arrival: EMS Source of Information: EMS Limitations: No Limitations Description of Symptoms (Recalled from ER Triage Doc. by RN): Patient to ED via stretcher from [facility]. Patient was found unresponsive to verbal but responsive to pain on front porch of [place]. Patient with wet, rapid respirations moving all extremities appears agitated. Only patient response at present is moaning. History of Present Illness HPI narrative: This 67-year-old male presents to the emergency department responsive only to pain on the front porch of [place] [facility] [facility]. EMS reports patient had wet, rapid respirations and appeared agitated. Patient received Narcan on scene without response. EMS placed him on nasal cannula during transport. Related Data Home Medications Medication Instructions Recorded Confirmed divalproex 500 mg tablet,delayed 500 mg PO AM Seizure control 12/12/22 02/05/23 release docusate sodium 100 mg capsule 200 mg PO BID Constipation 12/12/22 02/05/23 levothyroxine 25 mcg tablet 25 mcg PO DAILY Thyroid 12/12/22 02/05/23 melatonin 5 mg tablet 5 mg PO HSP PRN Insomnia 12/12/22 02/05/23 multivitamin 1 tab PO DAILY Supplement 12/12/22 02/05/23 olanzapine 10 mg tablet 10 mg PO TID Psych 12/12/22 02/05/23 tamsulosin 0.4 mg capsule 0.4 mg PO HS Prostate 12/12/22 02/05/23 ipratropium 20 mcg-albuterol 100 1 puff inhalation QID Breathing 02/05/23 02/05/23 mcg/actuation mist for inhalation Problems (Combivent Respimat) Previous Rx's Medication Instructions Recorded divalproex 500 mg tablet,delayed 500 mg PO HS Seizure control 30 12/13/22 release days #0 tabs lorazepam 0.5 mg tablet 0.5 mg PO BID PRN Anxiety #60 tabs 01/08/23 Allergies Allergy/AdvReac Type Severity Reaction Status Date / Time No Known Allergies Allergy Verified 12/06/18 13:32 PFSH <Emily Clark MD - Last Filed: 02/07/23 07:44> [facility] Disclaimer: The information contained in this section may have been updated after the patient was seen, as this information can be updated by other users. Medical History (Updated 02/07/23 @ 07:44 by Emily Clark MD) Abnormal ultrasound Bilateral arm numbness and tingling while sleeping Bilateral arm pain CAD (coronary artery disease) Hypotension Tachycardia Valproic acid toxicity Social History (Updated 12/13/22 @ 00:37 by Addis Wise RN) Smoking Status: Current every day smoker tobacco type: cigarettes packs per day: 1 second hand exposure: No (UNABLE TO DETERMINE R/T PT NOT COOPERATING) alcohol intake: never substance use type: crack/cocaine current occupational status: disabled Travel in the last 8 weeks: None household members: other housing: other caffeine: Yes <Emily Clark MD - Last Filed: 02/07/23 07:44> ROS Obtained: Yes unobtainable due to mental status Physical Exam <Emily Clark MD - Last Filed: 02/07/23 07:44> General General appearance: lethargic Comment: Thin and ill-appearing Head Head exam: atraumatic and normocephalic Eye Eye exam: Present PERRL and EOMI ENT ENT exam: Present mucous membranes moist Neck Neck exam: Present normal inspection and full ROM Ches
--- NOTE | 2023-02-07 06:43 | CT_ITS ---
PROCEDURE INFORMATION: Exam: CT Head Without Contrast Exam date and time: 02/07/2023 7:05 AM Age: 67 years old Clinical indication: Altered mental status/memory loss; Confusion or disorientation; Additional info: AMS TECHNIQUE: Imaging protocol: Computed tomography of the head without contrast. Radiation optimization: All CT scans at this facility use at least one of these dose optimization techniques: automated exposure control; mA and/or kV adjustment per patient size (includes targeted exams where dose is matched to clinical indication); or iterative reconstruction. REPORTING DATA: Count of CT and Cardiac NM exams in prior 12 months: This patient has received 3 known CTs and 0 known cardiac nuclear medicine studies in the 12 months prior to the current study. COMPARISON: CT HEAD/BRAIN WO CON 02/05/2023 9:25 PM FINDINGS: Brain: There is diffuse prominence of the cerebral sulci, cisterns, and ventricles consistent with atrophy. No intra or extra-axial fluid collections are noted. No mass or mass effect is seen. Periventricular white matter hypoattenuation is seen consistent with small vessel chronic ischemic changes. Cerebral ventricles: No ventriculomegaly. Paranasal sinuses: Visualized sinuses are unremarkable. No fluid levels. Mastoid air cells: Visualized mastoid air cells are well aerated. Bones/joints: Unremarkable. No acute fracture. Soft tissues: Unremarkable. IMPRESSION: No acute process noted.
[2023-02-07 07:00] LABS: Microscopic, Urine URINE MICROSCOPIC (MICROSCOPIC)
[2023-02-07 07:06] LABS: ABG HCO3 23.5 mmhg (22.0-26.0); ABG Oxygen Saturation 91 % (90-100); ABG PCO2 42.9 mmhg (35.0-45.0); ABG PH 7.36 mmol/L (7.35-7.45); ABG PO2 64.8 mmhg (80-100); ABG TCO2 24.8 mmhg (23-27)
[2023-02-07 07:07] LABS: Allen's Test Patient Unable; Source Left Radial
[2023-02-07 07:13] LABS: Appearance,Urine CLEAR (Clear); Bilirubin,Urine Negative (Negative); Blood, Urine Negative (Negative); Color,Urine YELLOW (Yellow); Glucose,Urine (UA) Negative (Negative); Ketones,Urine 1+ (Negative); Leukocyte Esterase,Urine Negative (Negative); Nitrate,Urine Negative (Negative); Protein,Urine TRACE (Negative); Specific Gravity, Urine >= 1.030 (1.005-1.030); Urobilinogen,Urine 0.2 EU/dl (0.2)
[2023-02-07 07:27] LABS: Bacteria,Urine Trace /lpf; Sperm,Urine OCC /lpf; Squamous Epithelial Cell,Urine Occasional #/hpf (0-5); WBC,Urine Occasional #/hpf (0-3)
--- NOTE | 2023-02-07 07:39 | PC.NURSE ---
Dr. Portillo s/w Hospitalist for admission
--- NOTE | 2023-02-07 07:52 | PC.NURSE ---
notified data warehouse specialist of admission
--- NOTE | 2023-02-07 08:13 | PC.NURSE ---
ATTEMPTED TO GIVE REPORT, NURSE DID NOT ANSWER
[2023-02-07 08:24] LABS: Amphetamine/Metha Screen,Urine Negative ng/ml (<1000)
[2023-02-07 08:25] LABS: Barbiturates Screen,Urine Negative ng/ml (<200); Benzodiazepines Screen,Urine Negative ng/ml (<200)
[2023-02-07 08:26] LABS: Cannabinoid Screen,Urine Negative ng/ml (<50)
[2023-02-07 08:27] LABS: Cocaine Screen,Urine Negative ng/ml (<300); Methadone Screen,Urine Negative ng/ml (<300)
[2023-02-07 08:28] LABS: Opiate Screen,Urine Negative ng/ml (<300); Phencyclidine Screen,Urine Negative ng/ml (<25)
[2023-02-07 08:29] LABS: Acetaminophen < 10 ug/ml (10-30); Salicylate < 1.0 mg/dL (2.0-20.0)
--- NOTE | 2023-02-07 08:32 | PC.NURSE ---
report called to britton funes on second floor, states will come down to transport pt.
--- NOTE | 2023-02-07 08:41 | PC.NURSE ---
arrived by stretcher from ED
[2023-02-07 08:43] LABS: Troponin I < 0.01 ng/ml (0.00-0.034)
--- NOTE | 2023-02-07 08:52 | PC.NURSE ---
pt admitted to 217 from ER via stretcher, pt's oxygen saturations upon arrival were 84-86% 4LNC, increased to 6LNC and oxygen saturations 90-91%, notified RT Josefa pt needs NT suctioning, pt very resistant to care and just wants to sleep, bed alarm on and seizure pads placed on bedrails
[2023-02-07 08:54] LABS: Ammonia 34 umol/L (9-30)
[2023-02-07 08:56] LABS: Ethyl Alcohol < 10 mg/dl (0-10)
[2023-02-07 09:00] LABS: Thyroid Stimulating Hormone 4.03 uIU/mL (0.465-4.68)
[2023-02-07 09:07] LABS: Troponin I < 0.01 ng/ml (0.00-0.034)
--- NOTE | 2023-02-07 09:52 | PC.NURSE ---
second bolus started
[2023-02-07 10:00] LABS: Coronavirus 19, PCR Not Detected (NotDetected); Influenza A, PCR Not Detected (NotDetected); Influenza B, PCR Not Detected (NotDetected)
--- NOTE | 2023-02-07 10:46 | PC.NURSE ---
pt's brother Jone Blakely visited and set up password of [email or web address], will speak with pt's sisters and let them know of password, Jone's phone number is [phone]
--- NOTE | 2023-02-07 10:55 | EXP.PHA.CONS ---
Pharmacy Consult Date: 02/07/23 Time: 10:58 Referring provider: DR DODGE Reason for Consult:: VANCOMYCIN DOSING CONSULT Allergies Allergy/AdvReac Type Severity Reaction Status Date / Time No Known Allergies Allergy Verified 12/06/18 13:32 Home Medications Medication Instructions Recorded Confirmed Type divalproex 500 mg tablet,delayed 500 mg PO AM Seizure control 12/12/22 02/07/23 History release docusate sodium 100 mg capsule 200 mg PO BID Constipation 12/12/22 02/07/23 History levothyroxine 25 mcg tablet 25 mcg PO DAILYDM Thyroid 12/12/22 02/07/23 History melatonin 5 mg tablet 5 mg PO HSP PRN Insomnia 12/12/22 02/07/23 History multivitamin 1 tab PO DAILY Supplement 12/12/22 02/07/23 History olanzapine 10 mg tablet 10 mg PO TID Psych 12/12/22 02/07/23 History tamsulosin 0.4 mg capsule 0.4 mg PO HS Prostate 12/12/22 02/07/23 History divalproex 500 mg tablet,delayed 500 mg PO HS Seizure control 30 12/13/22 02/05/23 Rx release days #0 tabs lorazepam 0.5 mg tablet 0.5 mg PO BID PRN Anxiety #60 tabs 01/08/23 02/05/23 Rx ipratropium 20 mcg-albuterol 100 1 puff inhalation QID Breathing 02/05/23 02/07/23 History mcg/actuation mist for inhalation Problems (Combivent Respimat) divalproex 500 mg tablet,delayed 1,000 mg PO HS SEIZURE CONTROL 02/07/23 02/07/23 History release lorazepam 0.5 mg tablet 0.5 mg PO BIDP PRN Anxiety 02/07/23 02/07/23 History New Prescriptions to Start Prescriptions: Height: 1.78 m Weight: 58.151 kg Laboratory Results:: Laboratory Results - last 24 hr 02/07/23 04:20: WBC 22.8 H* D, RBC 4.41 L, Hgb 12.8 L, Hct 39.9 L, MCV 90.5, MCH 29.1, MCHC 32.1, RDW 16.1, Plt Count 130 L D, MPV 9.5, Neut % (Auto) 73.0, Lymph % (Auto) 15.4, [place] % (Auto) 9.2, Eos % (Auto) 2.2, Baso % (Auto) 0.3, Neut # (Auto) 16.7 H, Lymph # (Auto) 3.5, [place] # (Auto) 2.1 H, Eos # (Auto) 0.5 H, Baso # (Auto) 0.1, Total Counted 100, Neutrophils % (Manual) 76, Lymphocytes % (Manual) 19, Monocytes % (Manual) 1 L, Eosinophils % (Manual) 4 H, Platelet Estimate Clumped, RBC Morphology Normal, Sodium 138, Potassium 3.9, Chloride 103, Carbon Dioxide 27, Anion Gap 11.9, BUN 31 H D, Creatinine 1.00, Estimated Creat Clear 66, Estimated GFR 74, Est GFR ( Amer) 90 D, Glucose 193 H, Calcium 8.6, Total Bilirubin 0.6, AST 45 D, ALT 22 D, Alkaline Phosphatase 90, Troponin I < 0.01, Total Protein 6.6, Albumin 3.6 D, Globulin 3.0, Albumin/Globulin Ratio 1.2, TSH 4.03, Salicylates < 1.0 L, Acetaminophen < 10 L 02/07/23 04:22: Specimen Source Left radial, O2 % 4 l nc ( in mouth ), ABG pH 7.36, ABG pCO2 42.9, ABG pO2 64.8 L, ABG HCO3 23.5, ABG Total CO2 24.8, ABG O2 Saturation 91, ABG Base Excess -2.0, Yung Test Patient unable 02/07/23 04:30: Lactate 1.4 02/07/23 04:47: VBG pH 7.34, VBG pCO2 52.1 H, VBG pO2 158.9 H, VBG HCO3 27.6, VBG Total CO2 29.2 H, VBG O2 Saturation 98.8 H, VBG Base Excess 1.9 02/07/23 06:55: Urine Color Yellow, Urine Appearance Clear, Urine pH 6.0, Ur Specific Jack >= 1.030, Urine Protein Trace, Urine Glucose (UA) Negative, Urine Ketones 1+, Urine Blood Negative, Urine Nitrate Negative, Urine Bilirubin Negative, Urine Urobilinogen 0.2, Ur Leukocyte Esterase Negative, Urine RBC None, Urine WBC Occasional, Ur Squamous Epith Cells Occasional, Urine Bacteria Trace, Urine Sperm Occ 02/07/23 08:32: Ammonia 34 H, Troponin I < 0.01, Plasma/Serum Alcohol < 10 02/07/23 09:58: SARS-CoV-2 (PCR) Not detected, Influenza A Untype (PCR) Not detected, Influenza Type B (PCR) Not detected 02/07/23 : Urine Opiates Screen Negative, Urine Methadone Screen Negative, Ur Barbituates Screen Negative, Ur Phencyclidine Scrn Negative, Ur Amphetamines Screen Negative, U Benzodiazepines Scrn Negative, Urine Cocaine Screen Negative, U Marijuana (THC) Screen Negative Medical History: Medical History (Updated 02/07/23 @ 07:44 by Emily Clark MD) Abnormal ultrasound Bilateral arm numbness and tingling while sleeping Bilateral arm pain CAD (coronary rossana
--- NOTE | 2023-02-07 13:08 | EXP.HP ---
History of Present Illness *Admission Date: 02/07/23 *Reason for visit:: encephalopathic *History of present illness: This is a 67 M resident of [place] [facility], with well known PMHx of schizophrenia, COPD, CAD, who was brought in via EMS after he was found on the front porch of [facility] unresponsive. EMS was called and they brought him to the ER for further evaluation. EMS reports he had wet, rapid breathing. Appeared agitated and confused. Received Narcan at the scene but did not have meaningful response to this medication. Started on nasal cannula oxygen due to hypoxemia. On evaluation, patient found to meet sepsis criteria. Elevated white count of 22,000, mild hypoxia, tachycardic and tachypneic. GCS of 9-10. Elevated BUN but no elliott SANDHYA with creatinine of 1.0. Of note, patient brought in earlier this week due to not taking his psychiatric and seizure medications and being somewhat altered. Agreed to take his medication and was sent back to his alf. Medicine was contacted for admission for further treatment of patient's sepsis. Cultures obtained in the ER. Started on vancomycin and Zosyn. Treated with sepsis bolus. Lactate within normal range. Blood gas showing hypoxia but no hypercapnia. Admitted to stepdown for further management. [facility] Disclaimer: The information contained in this section may have been updated after the patient was seen, as this information can be updated by other users. Medical History Abnormal ultrasound Bilateral arm numbness and tingling while sleeping Bilateral arm pain CAD (coronary artery disease) Hypotension Tachycardia Valproic acid toxicity Family History No significant family history Social History Smoking Status: Current every day smoker tobacco type: cigarettes packs per day: 1 second hand exposure: No (UNABLE TO DETERMINE R/T PT NOT COOPERATING) alcohol intake: never substance use type: crack/cocaine current occupational status: disabled Travel in the last 8 weeks: None household members: other housing: other caffeine: Yes Review of Systems Review of Systems Review of systems:: unable to obtain Meds Home Medications and Allergies Home Medications Medication Instructions Recorded Confirmed Type divalproex 500 mg tablet,delayed 500 mg PO AM Seizure control 12/12/22 02/07/23 History release docusate sodium 100 mg capsule 200 mg PO BID Constipation 12/12/22 02/07/23 History levothyroxine 25 mcg tablet 25 mcg PO DAILYDM Thyroid 12/12/22 02/07/23 History melatonin 5 mg tablet 5 mg PO HS Insomnia 12/12/22 02/07/23 History multivitamin 1 tab PO DAILY Supplement 12/12/22 02/07/23 History tamsulosin 0.4 mg capsule 0.4 mg PO HS Prostate 12/12/22 02/07/23 History ipratropium 20 mcg-albuterol 100 1 puff inhalation QID Breathing 02/05/23 02/07/23 History mcg/actuation mist for inhalation Problems (Combivent Respimat) clozapine 200 mg tablet 600 mg PO HS MOOD 02/07/23 02/07/23 History divalproex 500 mg tablet,delayed 1,000 mg PO HS SEIZURE CONTROL 02/07/23 02/07/23 History release hydroxyzine pamoate 50 mg capsule 50 mg PO Q6HP PRN Agitation 02/07/23 02/07/23 History lorazepam 0.5 mg tablet 0.5 mg PO BIDP PRN Anxiety 02/07/23 02/07/23 History oxcarbazepine 300 mg tablet 300 mg PO BID MOOD 02/07/23 02/07/23 History New Prescriptions to Start Prescriptions: Allergies Allergy/AdvReac Type Severity Reaction Status Date / Time No Known Allergies Allergy Verified 12/06/18 13:32 Exam Data for Last 24 hours Vital signs and Labs for Last 24 Hours: Temp Pulse Resp BP Pulse Ox O2 Del Method O2 Flow Rate 97.6 F 97 H 32 H 134/74 90 L Room Air 2 02/07/23 08:40 02/07/23 12:00 02/07/23 12:00 02/07/23 12:00 02/07/23 12:00 02/07/23 12:49 0
[2023-02-07 13:46] LABS: Troponin I < 0.01 ng/ml (0.00-0.034)
--- NOTE | 2023-02-07 13:47 | HMH.PHAINT1 ---
Pharmacy Intervention Comments: MEDICATION RECONCILIATION COMPLETE USING MARÍA REPORT AND MAR FROM [facility].
[2023-02-07 20:18] LABS: Chloride 108 mmol/L (98-107); Potassium 4.8 mmoL/L (3.5-5.1); Sodium 141 mmol/L (136-145)
[2023-02-07 20:21] LABS: Basophils # 0.1 K/mm3 (0-0.2); Basophils % 0.2 % (0.1-2.0); Eosinophils # 0.1 K/mm3 (0.0-0.4); Eosinophils % 0.2 % (0.1-12.0); Hematocrit 38.7 % (42.0-52.0); Hemoglobin 12.4 g/dL (14.1-18.0); Lymphocytes # 1.5 K/mm3 (0.7-4.5); Lymphocytes % 7.2 % (10-50); Mean Corpuscular Volume 90.7 fl (80-94); Monocytes # 1.1 K/mm3 (0.1-1.0); Monocytes % 5.3 % (1.7-9.3); Neutrophils # 18.4 K/mm3 (1.8-7.8); Neutrophils % 87.1 % (37.0-80.0); Red Blood Count 4.26 M/mm3 (4.60-6.20); Red Cell Distribution Width 15.9 % (11.5-17.5); White Blood Count 21.1 K/mm3 (4.8-10.8)
[2023-02-07 20:21] LABS: Anion Gap 12.8 mEq/L (5-15); Blood Urea Nitrogen 22 mg/dl (9-20); Calcium 9.5 mg/dl (8.4-10.2); Carbon Dioxide 25 mmol/L (22.0-30.0); Creatinine Clearance Estimated 58 mL/min (50-200); Estimated Glomerular Filt Rate 84 ml/min (>60); GFR (African American) 102 ML/MIN (>60); Glucose 183 mg/dl (74-100)
[2023-02-07 21:08] LABS: Platelet Count 210 K/mm3 (142-424)
[2023-02-07 21:10] LABS: MANUAL DIFFERENTIAL MANUAL DIFFERENTIAL (MANUAL DIFF)
[2023-02-07 23:05] LABS: Lymphocytes % 7 % (10-50); Monocytes % 3 % (2-9); Neutrophils % 89 % (42-76); RBC Morphology Normal; Total Cells Counted 100
[2023-02-07 23:06] LABS: Platelet Estimate Clumped
[2023-02-08] VITALS (14 sets, daily range): BP systolic 94–106; BP diastolic 60–65; PULSE 64–93; RESP 15–27; TEMP 36.5–37.1; O2SAT 94–99; BMI 19.8
[2023-02-08 07:28] LABS: Basophils % 0.3 % (0.1-2.0); Eosinophils # 0.3 K/mm3 (0.0-0.4); Eosinophils % 1.9 % (0.1-12.0); Hematocrit 36.2 % (42.0-52.0); Hemoglobin 11.8 g/dL (14.1-18.0); Lymphocytes # 2.4 K/mm3 (0.7-4.5); Lymphocytes % 13.8 % (10-50); Mean Corpuscular HGB Conc 32.5 g/dL (31.8-35.4); Mean Corpuscular Hemoglobin 29.5 pg (27.0-31.2); Mean Corpuscular Volume 90.9 fl (80-94); Monocytes # 1.6 K/mm3 (0.1-1.0); Monocytes % 9.5 % (1.7-9.3); Neutrophils # 12.7 K/mm3 (1.8-7.8); Neutrophils % 74.5 % (37.0-80.0); Red Blood Count 3.98 M/mm3 (4.60-6.20); Red Cell Distribution Width 15.9 % (11.5-17.5); White Blood Count 17.1 K/mm3 (4.8-10.8)
[2023-02-08 07:35] LABS: Platelet Count 164 K/mm3 (142-424)
[2023-02-08 07:36] LABS: MANUAL DIFFERENTIAL MANUAL DIFFERENTIAL (MANUAL DIFF)
[2023-02-08 07:38] LABS: Chloride 103 mmol/L (98-107); Potassium 3.6 mmoL/L (3.5-5.1); Sodium 137 mmol/L (136-145)
[2023-02-08 07:41] LABS: Alanine Aminotransferase 19 U/L (12-78); Albumin Level 2.7 g/dl (3.5-5.0); Albumin/Globulin Ratio 0.9 (1.1-1.8); Alkaline Phosphatase 84 U/L (38-126); Anion Gap 11.6 mEq/L (5-15); Aspartate Amino Transferase 31 U/L (17-59); Bilirubin,Total 0.3 mg/dl (0.2-1.3); Blood Urea Nitrogen 18 mg/dl (9-20); Calcium 8.4 mg/dl (8.4-10.2); Carbon Dioxide 26 mmol/L (22.0-30.0); Creatinine Clearance Estimated 63 mL/min (50-200); Estimated Glomerular Filt Rate 74 ml/min (>60); GFR (African American) 90 ML/MIN (>60); Globulin 2.9 g/dL (1.3-3.2); Glucose 99 mg/dl (74-100); Magnesium 1.9 mg/dl (1.6-2.3); Total Protein,Serum 5.6 g/dl (6.3-8.2)
[2023-02-08 07:59] LABS: Eosinophils % 1 % (0-3); Lymphocytes % 12 % (10-50); Monocytes % 4 % (2-9); Neutrophils % 83 % (42-76); Platelet Estimate Normal; RBC Morphology Normal; Total Cells Counted 100
--- NOTE | 2023-02-08 12:31 | HMH.PTEV ---
Physical Therapy Evaluation Rehab PT IP Evaluation Start: 02/08/23 08:12 Freq: ONCE Status: Active Protocol: Document 02/08/23 12:28 BERNARDINO (Rec: 02/08/23 12:31 PHONING [id number]) Subjective/History History History 67 yowm adm to [facility] after beign found unresponsive at his personal retirement. He has hx of schizophrenia, COPD, and CAD. He reports he is generally independent without AD at baseline. Subjective Subjective Pt has no c/o this am, is very eager to get OOB at ambulating. Rehab PT IP Eval Objective Appearance Patient Behavior Appropriate Patient Orientation Person,Place,Time Difficulty following instructions none Speech Pattern Clear Ambulation Patient Able to Ambulate Yes Ambulation Observation IP General Gait Pattern Observation No Deviations/Normal Ambulation Distance (feet) 100 Ambulation Assistive Device None Ambulation Ability Independent Balance Ability to Arise Able, uses arms to help Sitting Balance Steady, safe Standing Balance Narrow stance w/o support Dynamic Sitting Balance Ability Good Dynamic Standing Balance Ability Good Transfers Bed Transfer Ability Independent Chair Transfer Ability Independent Sit to Stand Bed Transfer Ability Independent Sit to Stand Chair Transfer Ability Independent ROM All Extremities PT ROM Status WFL MMT All Extremities PT MMT WFL Rehab PT IP prob,goals,plan Problems Date of Evaluation: 02/08/23 Discharge Plan PT Discharge Plan Pt is currently at baseline for all mobility and is appropriate to return to personal retirement once medically stable for d/c. G -code Required No Eval Complexity Eval Charge Codes 26976 - High Complexity PHYSICIAN CERTIFICATION: I certify the specified therapy services for Herberth Blakely are required, authorized, and reviewed every 30 days.
--- NOTE | 2023-02-08 15:46 | EXP.ACUTE.PN ---
Subjective *Date: 02/08/23 *Time: 15:46 Interval history: Patient stable on room air. Continues to have a cough but not productive. Afebrile overnight. Alert and oriented today. Asking when he can go home. Concerned that his nighttime meds are too strong for him. Tolerating p.o. intake. Cooperative with staff. PT eval pending today. Medical Exam Vital signs and Labs for Last 24 Hours: Vital Signs Temp Pulse Pulse Resp BP Pulse Ox O2 Del Method 02/08/23 15:41 98.6 F 75 18 102/60 L 99 Room Air 02/08/23 11:55 71 02/08/23 11:55 71 02/08/23 11:55 97 Room Air 02/08/23 11:38 97.9 F 72 18 97/60 L 97 Room Air 02/08/23 11:21 98.0 F 02/08/23 10:00 78 27 H 98 Room Air 02/08/23 08:00 96 Room Air 02/08/23 09:00 Room Air 02/08/23 08:00 82 26 H 106/61 L 97 Room Air 02/08/23 08:00 80 02/08/23 08:02 98.5 F 02/08/23 07:00 Room Air 02/08/23 06:00 80 20 94/62 L 97 Room Air 02/08/23 06:04 79 02/08/23 06:04 79 02/08/23 06:04 94 L Room Air 02/08/23 04:00 81 16 103/65 L 95 Room Air 02/08/23 02:00 93 H 18 95/60 L 95 Room Air 02/07/23 22:00 88 18 107/61 L 94 L Room Air 02/07/23 20:00 83 16 128/70 91 L Room Air 02/08/23 05:00 Room Air 02/08/23 00:00 87 15 96/63 L 95 Room Air 02/08/23 04:00 98.2 F 02/08/23 03:00 Room Air 02/08/23 04:00 Room Air 02/08/23 04:00 80 02/08/23 01:00 Room Air 02/07/23 23:00 Room Air 02/07/23 21:00 Room Air 02/07/23 20:00 Room Air 02/07/23 20:00 90 02/07/23 20:00 80 02/08/23 00:00 98.8 F 02/07/23 23:52 88 02/07/23 23:51 89 02/07/23 19:57 98.3 F 02/07/23 18:24 91 H 02/07/23 18:23 93 H 02/07/23 16:00 90 02/07/23 16:00 91 H 27 H 116/69 91 L Room Air 02/07/23 17:56 Room Air 02/07/23 17:55 89 26 H 119/71 91 L Room Air 02/07/23 16:59 Room Air Intake and Output 02/07/23 02/08/23 02/08/23 23:59 07:59 15:59 Intake Total 2680 / 3979 1299 / 2379 1080 / 2379 Output Total 0 / 800 1100 / 1100 0 / 1100 Balance 2680 / 3179 199 / 1279 1080 / 1279 Intake: Intake, Oral Amount 480 / 480 1080 / 1080 Intake, Other Amount 1299 / 1299 Intake, Total IV Amount 2200 / 2200 Lactated Ringers 1000ML 2,190 2100 / 2100 ml @ 1095 mls/hr IV .Q2H ONE Rx #:[id number] Piperacillin/Tazo 4.5 gm In 0.9 100 / 100 % Sodium Chloride 100 ml @ 200 mls/hr IV Q6H [facility] Rx#:[id number] Output: Output, Urine Amount 0 / 800 1100 / 1100 0 / 1100 Other: Number of Unmeasured Voids 0 0 0 Number of Bowel Movements 1 Weight 62.913 kg Patient Weight 02/08/23 23:59 Weight 62.913 kg Laboratory Results - last 24 hr 02/07/23 18:07: Sodium 141, Potassium 4.8 D, Chloride 108 H, Carbon Dioxide 25, Anion Gap 12.8, BUN 22 H D, Creatinine 0.90, Estimated Creat Clear 58, Estimated GFR 84, Est GFR ( Amer) 102, Glucose 183 H, Calcium 9.5 02/07/23 19:00: WBC 21.1 H*, RBC 4.26 L, Hgb 12.4 L, Hct 38.7 L, MCV 90.7, MCH 29.0, MCHC 32.0, RDW 15.9, Plt Count 210 D, MPV 9.0, Neut % (Auto) 87.1 H, Lymph % (Auto) 7.2 L, [place] % (Auto) 5.3, Eos % (Auto) 0.2, Baso % (Auto) 0.2, Neut # (Auto) 18.4 H, Lymph # (Auto) 1.5, [place] # (Auto) 1.1 H, Eos # (Auto) 0.1, Baso # (Auto) 0.1, Total Counted 100, Neutrophils % (Manual) 89 H, Lymphocytes % (Manual) 7 L, Monocytes % (Manual) 3, Basophils % (Manual) 1.0, Platelet Estimate Clumped, RBC Morphology Normal 02/08/23 07:13: WBC 17.1 H, RBC 3.98 L, Hgb 11.8 L, Hct 36.2 L, MCV 90.9, MCH 29.5, MCHC 32.5, RDW 15.9, Plt Count 164, MPV 13.0 H, Neut % (Auto) 74.5, Lymph % (Auto) 13.8, [place] % (Auto) 9.5 H, Eos % (Auto) 1.9, Baso % (Auto) 0.3, Neut # (Auto) 12.7 H, Lymph # (Auto) 2.4, [place] # (Auto) 1.6 H, Eos # (Auto) 0.3, Baso # (Auto) 0.0, Total Counted 100, Neutrop
--- NOTE | 2023-02-08 18:25 | PC.NURSE ---
placed pt in regular clothes sister brought, placed rest of belongings in pt's closet and reminded him to take them with him tomorrow if he is discharged
--- NOTE | 2023-02-08 19:49 | EXP.ACUTE.PN ---
Subjective *Date: 02/08/23 *Time: 19:49 Interval history: Patient doing much better. Baseline mentation this morning. Denies any chest pain, shortness of breath, nausea or vomiting. Intermittent cough that is wet but nonproductive. Afebrile overnight. Tolerating p.o. intake. States he feels he was getting too many meds at [facility] Medical Exam Vital signs and Labs for Last 24 Hours: Vital Signs Temp Pulse Pulse Resp BP Pulse Ox O2 Del Method 02/08/23 18:55 78 02/08/23 18:55 76 02/08/23 18:23 Room Air 02/08/23 17:00 Room Air 02/08/23 15:00 Room Air 02/08/23 13:00 Room Air 02/08/23 11:00 Room Air 02/08/23 15:41 98.6 F 75 18 102/60 L 99 Room Air 02/08/23 11:55 71 02/08/23 11:55 71 02/08/23 11:55 97 Room Air 02/08/23 11:38 97.9 F 72 18 97/60 L 97 Room Air 02/08/23 11:21 98.0 F 02/08/23 10:00 78 27 H 98 Room Air 02/08/23 08:00 96 Room Air 02/08/23 09:00 Room Air 02/08/23 08:00 82 26 H 106/61 L 97 Room Air 02/08/23 08:00 80 02/08/23 08:02 98.5 F 02/08/23 07:00 Room Air 02/08/23 06:00 80 20 94/62 L 97 Room Air 02/08/23 06:04 79 02/08/23 06:04 79 02/08/23 06:04 94 L Room Air 02/08/23 04:00 81 16 103/65 L 95 Room Air 02/08/23 02:00 93 H 18 95/60 L 95 Room Air 02/07/23 22:00 88 18 107/61 L 94 L Room Air 02/07/23 20:00 83 16 128/70 91 L Room Air 02/08/23 05:00 Room Air 02/08/23 00:00 87 15 96/63 L 95 Room Air 02/08/23 04:00 98.2 F 02/08/23 03:00 Room Air 02/08/23 04:00 Room Air 02/08/23 04:00 80 02/08/23 01:00 Room Air 02/07/23 23:00 Room Air 02/07/23 21:00 Room Air 02/07/23 20:00 Room Air 02/07/23 20:00 90 02/07/23 20:00 80 02/08/23 00:00 98.8 F 02/07/23 23:52 88 02/07/23 23:51 89 02/07/23 19:57 98.3 F Intake and Output 02/08/23 02/08/23 02/08/23 07:59 15:59 23:59 Intake Total 1299 / 2859 1080 / 2859 480 / 2859 Output Total 1100 / 2000 400 / 2000 500 / 2000 Balance 199 / 859 680 / 859 -20 / 859 Intake: Intake, Oral Amount 1080 / 1560 480 / 1560 Intake, Other Amount 1299 / 1299 Output: Output, Urine Amount 1100 / 2000 400 / 2000 500 / 2000 Other: Number of Unmeasured Voids 0 0 0 Number of Bowel Movements 1 Weight 62.913 kg Patient Weight 02/08/23 23:59 Weight 62.913 kg Laboratory Results - last 24 hr 02/07/23 18:07: Sodium 141, Potassium 4.8 D, Chloride 108 H, Carbon Dioxide 25, Anion Gap 12.8, BUN 22 H D, Creatinine 0.90, Estimated Creat Clear 58, Estimated GFR 84, Est GFR ( Amer) 102, Glucose 183 H, Calcium 9.5 02/07/23 19:00: WBC 21.1 H*, RBC 4.26 L, Hgb 12.4 L, Hct 38.7 L, MCV 90.7, MCH 29.0, MCHC 32.0, RDW 15.9, Plt Count 210 D, MPV 9.0, Neut % (Auto) 87.1 H, Lymph % (Auto) 7.2 L, [place] % (Auto) 5.3, Eos % (Auto) 0.2, Baso % (Auto) 0.2, Neut # (Auto) 18.4 H, Lymph # (Auto) 1.5, [place] # (Auto) 1.1 H, Eos # (Auto) 0.1, Baso # (Auto) 0.1, Total Counted 100, Neutrophils % (Manual) 89 H, Lymphocytes % (Manual) 7 L, Monocytes % (Manual) 3, Basophils % (Manual) 1.0, Platelet Estimate Clumped, RBC Morphology Normal 02/08/23 07:13: WBC 17.1 H, RBC 3.98 L, Hgb 11.8 L, Hct 36.2 L, MCV 90.9, MCH 29.5, MCHC 32.5, RDW 15.9, Plt Count 164, MPV 13.0 H, Neut % (Auto) 74.5, Lymph % (Auto) 13.8, [place] % (Auto) 9.5 H, Eos % (Auto) 1.9, Baso % (Auto) 0.3, Neut # (Auto) 12.7 H, Lymph # (Auto) 2.4, [place] # (Auto) 1.6 H, Eos # (Auto) 0.3, Baso # (Auto) 0.0, Total Counted 100, Neutrophils % (Manual) 83 H, Lymphocytes % (Manual) 12, Monocytes % (Manual) 4, Eosinophils % (Manual) 1, Platelet Estimate Normal, RBC Morphology Normal, Sodium 137, Potassium 3.6 D, Chloride 103, Carbon Dioxide 26, Anion Gap 11.6, BUN 18, Creatinine 1.00, Estimated Creat Clear 63, Estimated GFR 74, Est
[2023-02-09] VITALS: BP 106/67; PULSE 71; RESP 18; TEMP 36.7; O2SAT 98
[2023-02-09 04:00] VITALS: BP 116/74; PULSE 64; RESP 18; TEMP 36.8; O2SAT 98; BMI 19.8
[2023-02-09 06:24] VITALS: PULSE 68; PULSE 73
[2023-02-09 06:26] LABS: Chloride 103 mmol/L (98-107); Potassium 4.4 mmoL/L (3.5-5.1); Sodium 137 mmol/L (136-145)
[2023-02-09 06:28] LABS: Alanine Aminotransferase 19 U/L (12-78); Aspartate Amino Transferase 23 U/L (17-59); Blood Urea Nitrogen 16 mg/dl (9-20); Creatinine Clearance Estimated 52 mL/min (50-200); Estimated Glomerular Filt Rate 60 ml/min (>60); GFR (African American) 73 ML/MIN (>60)
[2023-02-09 06:29] LABS: Albumin Level 2.7 g/dl (3.5-5.0); Alkaline Phosphatase 85 U/L (38-126); Anion Gap 10.4 mEq/L (5-15); Bilirubin,Total 0.2 mg/dl (0.2-1.3); Calcium 8.8 mg/dl (8.4-10.2); Carbon Dioxide 28 mmol/L (22.0-30.0); Globulin 2.7 g/dL (1.3-3.2); Glucose 124 mg/dl (74-100); Magnesium 1.9 mg/dl (1.6-2.3); Total Protein,Serum 5.4 g/dl (6.3-8.2)
[2023-02-09 06:52] LABS: Basophils % 0.3 % (0.1-2.0); Eosinophils # 0.5 K/mm3 (0.0-0.4); Eosinophils % 5.2 % (0.1-12.0); Hemoglobin 12.2 g/dL (14.1-18.0); Lymphocytes # 1.5 K/mm3 (0.7-4.5); Lymphocytes % 14.3 % (10-50); Mean Corpuscular Hemoglobin 29.2 pg (27.0-31.2); Mean Corpuscular Volume 91.3 fl (80-94); Mean Platelet Volume 9.1 fl (7.4-10.4); Monocytes # 1.9 K/mm3 (0.1-1.0); Monocytes % 18.3 % (1.7-9.3); Neutrophils # 6.3 K/mm3 (1.8-7.8); Neutrophils % 61.9 % (37.0-80.0); Red Blood Count 4.17 M/mm3 (4.60-6.20); Red Cell Distribution Width 15.8 % (11.5-17.5); White Blood Count 10.1 K/mm3 (4.8-10.8)
[2023-02-09 07:49] LABS: Platelet Count 146 K/mm3 (142-424)
[2023-02-09 08:00] VITALS: BP 103/61; PULSE 69; RESP 18; TEMP 36.8; O2SAT 96
--- NOTE | 2023-02-09 08:21 | EXP.DC.SUM ---
General Admission date:: 02/07/23 Discharge date: 02/09/23 HPI HPI HPI: This is a 67 M resident of [facility], with well known PMHx of schizophrenia, COPD, CAD, who was brought in via EMS after he was found on the front porch of [facility] unresponsive. EMS was called and they brought him to the ER for further evaluation. EMS reports he had wet, rapid breathing. Appeared agitated and confused. Received Narcan at the scene but did not have meaningful response to this medication. Started on nasal cannula oxygen due to hypoxemia. On evaluation, patient found to meet sepsis criteria. Elevated white count of 22,000, mild hypoxia, tachycardic and tachypneic. GCS of 9-10. Elevated BUN but no elliott SANDHYA with creatinine of 1.0. Of note, patient brought in earlier this week due to not taking his psychiatric and seizure medications and being somewhat altered. Agreed to take his medication and was sent back to his [facility]. Medicine was contacted for admission for further treatment of patient's sepsis. Cultures obtained in the ER. Started on vancomycin and Zosyn. Treated with sepsis bolus. Lactate within normal range. Blood gas showing hypoxia but no hypercapnia. Admitted to stepdown for further management. Hospital Course Hospital Course Hospital Course: 67-year-old male with schizophrenia, CAD, COPD, who presents to the ER with encephalopathy and sepsis. Concern for aspiration pneumonia. Mentation has improved to baseline. Patient interactive on exam. Stable on room air. PT evaluated and deemed patient is safe to return back to his [facility] setting. Back to baseline mentation. Stable on room air. Transition to oral antibiotics.. Problems addressed as follows: Toxic encephalopathy, resolved Sepsis Pneumonia -Admitted with tachycardia, somnolence, new oxygen requirement, leukocytosis, and concern for right lower lobe pneumonia on chest imaging. Initiated on Zosyn and vancomycin. Able to wean off oxygen within the first 6 hours of admission. She was improvement in mentation within 24 hours of admission. Back to baseline by day of discharge. Blood cultures, urine cultures obtained, negative to date. Review of patient's medications and recent history with not taking his medication, encephalopathy could be secondary to infection versus medication given his high dose of clozapine, divalproex, oxcarbazepine, Ativan. Continued divalproex 500 mg in the morning and at 1000 mg at night. oxcarbamazepine 300 mg twice daily. Free valproic acid level pending. Transitioned to Augmentin to complete 5days for pneumonia. Schizophrenia -Continue oxcarbazepine 300 mg twice daily -Continue divalproex per home regimen 500 mg in the morning, 1000 mg at night. -Holding Ativan and clozapine initially. Recommend resuming clozapine 200 mg nightly when returns back to facility. Concerned that the 600 mg dose is too high for him and causing his confusion. hold ativan at this time. Hypothyroidism: TSH 4. Continue levothyroxine 25 mcg daily Stable for discharge home to [facility]. Exam Data for Last 24 hours Vital signs and Labs for Last 24 Hours: Temp Pulse Resp BP Pulse Ox O2 Del Method O2 Flow Rate 98.2 F 69 18 103/61 L 96 Room Air 2 02/09/23 08:00 02/09/23 08:00 02/09/23 08:00 02/09/23 08:00 02/09/23 08:00 02/09/23 08:00 02/07/23 11:15 Laboratory Results - last 24 hr 02/09/23 05:23: WBC 10.1 D, RBC 4.17 L, Hgb 12.2 L, Hct 38.0 L, MCV 91.3, MCH 29.2, MCHC 32.0, RDW 15.8, Plt Count 146, MPV 9.1, Neut % (Auto) 61.9, Lymph % (Auto) 14.3, [place] % (Auto) 18.3 H, Eos % (Auto) 5.2, Baso % (Auto) 0.3, Neut # (Auto) 6.3, Lymph # (Auto) 1.5, [place] # (Auto) 1.9 H, Eos # (Auto) 0.5 H, Baso # (Auto) 0.0, Sodium 137, Potassium 4.4 D, Chloride 103, Carbon Dioxide 28, Anion Gap 10.4, BUN 16, Creatinine 1.20, Estimated Creat Clear 52, Estimated GFR 60, Est GFR ( Amer) 73, Glucose 124 H D, Calcium 8.8
--- NOTE | 2023-02-09 11:05 | SW/DCPLANNER ---
Patient currently resides at [facility]. I updated Yumiko rajan/ Shen that patient will be returning today. PT evaluated patient and stated he is safe to return today. I will arrange [employer] once nurse has patient medically stable for discharge.
[2023-02-12 11:12] LABS: Free Valproic Acid (Depakote) 7.9
== END 2023-02-09 12:02 | disposition home or self-care (01) | DRG 871 ==
LOC: ER 06:31 → 2ND 07:59
PROVIDERS: Student in an Organized Health Care Education/Training Program; Admitting Provider Internal Medicine Adolescent Medicine; Emergency Provider Emergency Medicine; PCP Emergency Medicine; Visit Provider Internal Medicine Adolescent Medicine
DX: A41.9 Sepsis, unspecified organism (principal); G92.9 Unspecified toxic encephalopathy; J69.0 Pneumonitis due to inhalation of food and vomit; J96.01 Acute respiratory failure with hypoxia; J44.0 Chronic obstructive pulmonary disease with (acute) lower respiratory infection; I25.10 Atherosclerotic heart disease of native coronary artery without angina pectoris; E03.9 Hypothyroidism, unspecified; F20.9 Schizophrenia, unspecified; I10 Essential (primary) hypertension; N40.0 Benign prostatic hyperplasia without lower urinary tract symptoms; G40.909 Epilepsy, unspecified, not intractable, without status epilepticus; R65.20 Severe sepsis without septic shock; Z72.0 Tobacco use
CPT/HCPCS: 36415; 70450; 71045; 71275; 80048; 80053; 80165; 80305; 80329; 81001; 82140; 82803; 83605; 83735; 84443; 84484; 85007; 85025; 87040; 87070; 87086; 87205; 87636; 93005; 94640; 97163; 99291; J2543; J3370; Q9967

== ENCOUNTER 2023-03-04 00:35 | Emergency (ER) | payer MEDICARE, MEDICAID, SELFPAY ==
[2023-03-04 00:35] VITALS: BP 131/77; PULSE 84; RESP 22; TEMP 36.8; O2SAT 100; BMI 20.3
--- NOTE | 2023-03-04 00:46 | HMH.EDGENADL ---
Discharge Plan Disposition Patient Disposition: Home, Self-Care Chief Complaint: Altered Mental Status Prescriptions Prescriptions: No Action multivitamin Tablet 1 tab PO DAILY divalproex 500 mg tablet,delayed release (DR/EC) 500 mg PO AM Patient Comments: GIVE 1 TABLET BY MOUTH EVERY MORNING;GIVE 2 TABLETS BY MOUTH AT BEDTIME levothyroxine 25 mcg tablet 25 mcg PO DAILYDM Patient Comments: GIVE 1 TABLET BY MOUTH EVERY MORNING tamsulosin 0.4 mg capsule 0.4 mg PO HS Patient Comments: GIVE 1 CAPSULE BY MOUTH AT BEDTIME docusate sodium 100 mg capsule 200 mg PO BID Patient Comments: GIVE 2 CAPSULES (200MG) BY MOUTH TWICE DAILY melatonin 5 mg tablet 5 mg PO HS Combivent Respimat 20-100 mcg/actuation mist 1 puff inhalation QID Rx Instructions: space evenly during waking hours lorazepam 0.5 mg tablet 0.5 mg PO BIDP PRN (Reason: Anxiety) Patient Comments: 0.5 mg orally twice a day As Needed for Anxiety divalproex 500 mg tablet,delayed release (DR/EC) 1,000 mg PO HS Patient Comments: GIVE 1 TABLET BY MOUTH EVERY MORNING;GIVE 2 TABLETS BY MOUTH AT BEDTIME oxcarbazepine 300 mg Tablet 300 mg PO BID hydroxyzine pamoate 50 mg Capsule 50 mg PO Q6HP PRN (Reason: Agitation) amoxicillin-pot clavulanate 875-125 mg tablet 1 tab PO BID 4 Days Qty: 8 0RF clozapine 200 mg Tablet 200 mg PO HS 30 Days Qty: 0 0RF Clinical Impressions Clinical Impression: Encounter for medical assessment Instructions Patient Instructions: DI for Altered Mental Status Discharge ED Provider: Joey Vega General Adult HPI General Chief complaint: Altered Mental Status Stated complaint: AMS Time Seen by Provider: 03/04/23 00:43 History of Present Illness HPI narrative: 67-year-old male history of schizophrenia, resident at [facility] presents via EMS for evaluation. He left [facility] multiple times today. The time he was found on the porch. The second time they were unable to find him. Police found him and were concerned that he was altered/potentially intoxicated. Patient is well-known to department. He is acting at baseline. Normal vital signs in route and normal fingerstick per EMS. Patient does not smell of alcohol, denies any alcohol ingestion. Patient has had decreasing doses of his medication at [facility] recently according to nursing report. Patient has no acute complaints, denies any current pain or symptoms and is eating a turkey sandwich and drinking a Pepsi without difficulty. Related Data Home Medications Medication Instructions Recorded Confirmed divalproex 500 mg tablet,delayed 500 mg PO AM MOOD 12/12/22 02/07/23 release docusate sodium 100 mg capsule 200 mg PO BID Constipation 12/12/22 02/07/23 levothyroxine 25 mcg tablet 25 mcg PO DAILYDM Thyroid 12/12/22 02/07/23 melatonin 5 mg tablet 5 mg PO HS Insomnia 12/12/22 02/07/23 multivitamin 1 tab PO DAILY Supplement 12/12/22 02/07/23 tamsulosin 0.4 mg capsule 0.4 mg PO HS Prostate 12/12/22 02/07/23 ipratropium 20 mcg-albuterol 100 1 puff inhalation QID Breathing 02/05/23 02/07/23 mcg/actuation mist for inhalation Problems (Combivent Respimat) divalproex 500 mg tablet,delayed 1,000 mg PO HS MOOD 02/07/23 02/07/23 release hydroxyzine pamoate 50 mg capsule 50 mg PO Q6HP PRN Agitation 02/07/23 02/07/23 lorazepam 0.5 mg tablet 0.5 mg PO BIDP PRN Anxiety 02/07/23 02/07/23 oxcarbazepine 300 mg tablet 300 mg PO BID MOOD 02/07/23 02/07/23 Previous Rx's Medication Instructions Recorded amoxicillin 875 mg-potassium 1 tab PO BID 4 days #8 tabs 02/09/23 clavulanate 125 mg tablet clozapine 200 mg tablet 200 mg PO HS MOOD 30 days #0 tabs 02/09/23 Allergies Allergy/AdvReac Type Severity Reaction Status Date / Time No Known Allergies Allergy Verified 12/06/18 13:32 [facility] Disclaimer: The information contained in th
[2023-03-04 01:01] VITALS: BP 134/72; PULSE 80; RESP 22; TEMP 36.8; O2SAT 100
== END 2023-03-04 01:00 | disposition home or self-care (01) ==
PROVIDERS: Emergency Provider Emergency Medicine; PCP Emergency Medicine
DX: R41.82 Altered mental status, unspecified (principal); F20.81 Schizophreniform disorder; I25.10 Atherosclerotic heart disease of native coronary artery without angina pectoris; F17.210 Nicotine dependence, cigarettes, uncomplicated
CPT/HCPCS: 99282

== ENCOUNTER 2023-09-03 19:29 | Emergency (ER) | payer MEDICARE, MEDICAID, SELFPAY ==
[2023-09-03 19:38] VITALS: BP 163/87; PULSE 99; RESP 22; TEMP 36.7; O2SAT 97; BMI 18.8
--- NOTE | 2023-09-03 19:54 | HMH.EDGENADL ---
Discharge Plan Disposition Patient Disposition: Xfer Other Condition: Good Prescriptions Prescriptions: No Action multivitamin Tablet 1 tab PO DAILY divalproex 500 mg tablet,delayed release (DR/EC) 500 mg PO AM Patient Comments: GIVE 1 TABLET BY MOUTH EVERY MORNING;GIVE 2 TABLETS BY MOUTH AT BEDTIME levothyroxine 25 mcg tablet 25 mcg PO DAILYDM Patient Comments: GIVE 1 TABLET BY MOUTH EVERY MORNING tamsulosin 0.4 mg capsule 0.4 mg PO HS Patient Comments: GIVE 1 CAPSULE BY MOUTH AT BEDTIME docusate sodium 100 mg capsule 200 mg PO BID Patient Comments: GIVE 2 CAPSULES (200MG) BY MOUTH TWICE DAILY melatonin 5 mg tablet 5 mg PO HS Combivent Respimat 20-100 mcg/actuation mist 1 puff inhalation QID Rx Instructions: space evenly during waking hours lorazepam 0.5 mg tablet 0.5 mg PO BIDP PRN (Reason: Anxiety) Patient Comments: 0.5 mg orally twice a day As Needed for Anxiety divalproex 500 mg tablet,delayed release (DR/EC) 1,000 mg PO HS Patient Comments: GIVE 1 TABLET BY MOUTH EVERY MORNING;GIVE 2 TABLETS BY MOUTH AT BEDTIME oxcarbazepine 300 mg Tablet 300 mg PO BID hydroxyzine pamoate 50 mg Capsule 50 mg PO Q6HP PRN (Reason: Agitation) amoxicillin-pot clavulanate 875-125 mg tablet 1 tab PO BID 4 Days Qty: 8 0RF clozapine 200 mg Tablet 200 mg PO HS 30 Days Qty: 0 0RF Referrals Follow up/Referrals: Kai Martinez APRN [Primary Care Provider] - See instructions Activity Restrictions/Add. Instructions Additional Instructions/Restrictions: You were evaluated in the emergency department today. Please continue taking your medications as prescribed. Please follow-up closely with your primary care provider and psychiatrist. Return for new or worsening symptoms Clinical Impressions Clinical Impression: Encounter for medical assessment Schizophrenia Qualifiers: Schizophrenia type: unspecified Qualified Code(s): F20.9 - Schizophrenia, unspecified Instructions Patient Instructions: DI for Psychosis Discharge ED Provider: Gertrude Alvarado General Adult HPI General Chief complaint: Psychiatric Symptoms Stated complaint: poss ams Time Seen by Provider: 09/03/23 19:41 History of Present Illness HPI narrative: This patient is a 67-year-old male with a history of schizophrenia, hypothyroidism, BPH, and tobacco use disorder presenting to the emergency department for evaluation. He resides at [facility]. Patient walked in the front door, stating that he just loves it here. He stated that this morning, he took his medications at [facility], grabbed his $2, and went on his way because he likes to go out and about and walk around the town. He states that he had been in a record shop looking at records, he decided to come here. He denies any concerns or complaints except for back pain, which he states is been going on for over a year since previous hospitalization at [facility] in which he was taken to the ground. No new concerns or complaints. He is ambulatory without difficulty. I asked that the patient has had any thoughts of hurting himself or anyone else, and he said Back in high school I did, but now I'm almost 68, God no. Patient states that he feels safe and denies any issues. He reports compliance with his medications. Related Data Home Medications Medication Instructions Recorded Confirmed divalproex 500 mg tablet,delayed 500 mg PO AM MOOD 12/12/22 02/07/23 release docusate sodium 100 mg capsule 200 mg PO BID Constipation 12/12/22 02/07/23 levothyroxine 25 mcg tablet 25 mcg PO DAILYDM Thyroid 12/12/22 02/07/23 melatonin 5 mg tablet 5 mg PO HS Insomnia 12/12/22 02/07/23 multivitamin 1 tab PO DAILY Supplement 12/12/22 02/07/23 tamsulosin 0.4 mg capsule 0.4 mg PO HS Prostate 12/12/22 02/07/23 ipratropium 20 mcg-albuterol 100 1 puff inhalation QID Breathing 02/05/23 02/07/23 mcg/actuation mist for inhalation Problems (Combivent Respimat) divalproex 500 mg tablet,delayed 1,000 mg PO HS MOOD 02/07/23 02/07/23 release hydroxyzine pamoate 50 mg capsule 50 mg PO Q6HP PRN Agitation 02/07/23 02/07/23 lorazepam 0.5 mg tablet 0.5 mg PO BIDP PRN Anxiety 02/07/23 02/07/23 oxcarbazepine 300 mg tablet 300 mg PO BID MOOD 02/07/23 02/07/23 Previous Rx's Medication Instructions Recorded amoxicillin 875 mg-potassium 1 tab PO BID 4 days #8 tabs 02/09/23 clavulanate 125 mg tablet clozapine 200 mg tablet 200 mg PO HS MOOD 30 days #0 tabs 02/09/23 Allergies Allergy/AdvReac Type Severity Reaction Status Date / Time No Known Allergies Allergy Verified 12/06/18 13:32 [facility] Disclaimer: The information contained in this section may have been updated after the patient was seen, as this information can be updated by other users. Medical History Schizophrenia Valproic acid toxicity Abnormal ultrasound Bilateral arm numbness and tingling while sleeping Bilateral arm pain Tachycardia CAD (coronary artery disease) Hypotension Family History Other No significant family history Social History Smoking Status: Current every day smoker tobacco type: cigarettes packs per day: 1 second hand exposure: No (UNABLE TO DETERMINE R/T PT NOT COOPERATING) alcohol intake: never substance use type: crack/cocaine current occupational status: disabled Travel in the last 8 weeks: None household members: other housing: other caffeine: Yes ROS Obtained: Yes All systems reviewed & no additional complaints except as documented Physical Exam General General appearance: alert and in no apparent distress Comment: Pleasant Head Head exam: atraumatic and normocephalic Eye Eye exam: Present normal appearance, PERRL and EOMI ENT ENT exam: Present normal exam, normal oropharynx, mucous membranes moist and normal external ear exam Neck Neck exam: Present normal inspection, full ROM and trachea midline; Absent tenderness Chest Chest inspection: Present normal inspection and symmetric chest wall rise; Absent tenderness Respiratory Respiratory exam: Present normal lung sounds bilaterally; Absent respiratory distress, wheezes, stridor or accessory muscle use Cardiovascular Cardiovascular exam: Present regular rate and normal rhythm Abdominal Exam Abdominal exam: Present soft; Absent distention, tenderness or guarding Extremities Exam Extremities exam: Present normal inspection, full ROM and normal capillary refill; Absent tenderness or edema Back Exam Back exam: Present normal inspection and full ROM; Absent tenderness Neurological Exam Neurological exam: Present alert, oriented X3, CN II-XII intact and normal gait; Absent motor sensory deficit Expanded Psychiatric Exam Expanded psych exam: Present pressured speech, flight of ideas and loose associations Skin Skin exam: Present warm and dry Medical Decision Making Medical Records Medical records reviewed: Yes I reviewed the patient's medical records. [place] Inquiry Pt receiving controlled substance: No Vital Signs: 09/03/23 19:38 09/03/23 21:31 Temperature 98.1 F 98.2 F Temperature Source Oral Oral Pulse Rate 98 H Pulse Rate [Right Brachial] 99 H Respiratory Rate 22 20 Blood Pressure 158/82 H Blood Pressure [Right Arm] 163/87 H Blood Pressure Mean [Right Arm] 112 Blood Pressure Source [Right Arm] Automatic Cuff Blood Pressure Position [Right Arm] Sitting 02 Sat by Pulse Oximetry 97 Oxygen Delivery Method Room Air Room Air Lab Data Lab results reviewed: Yes I reviewed the patient's lab results. Orders (Tests/Meds): ED MEDICATIONS Discontinued Medications Generic Name Dose Route Start Last Admin Trade Name Freq PRN Reason Stop Dose Admin Acetaminophen 1,000 mg 09/03/23 19:48 09/03/23 20:10 Acetaminophen 500mg Tab PO 09/03/23 19:49 1,000 mg ONCE ONE Administration Ibuprofen 800 mg 09/03/23 19:48 09/03/23 20:10 Ibuprofen 400 Mg Tablet PO 09/03/23 19:49 800 mg ONCE ONE Administration Medical Decision Narrative: In summary, this patient is a 67-year-old male presenting to the Emergency Department for evaluation. Differential diagnoses considered include but are not limited to psychiatric disturbance, acute illness, medication noncompliance. Ruling out the most morbid conditions drove assessment. On exam, the patient is well-appearing. He denies any concerns or complaints. He denies SI/HI. He states that he walked in here because he lives that here. On medical record review, he has presented for medical evaluation in the past similarly. His psychiatric examination today is consistent with his baseline per medical record review. He is pleasant with reassuring vital signs. Given lack of concerns or complaints and the fact that the patient is at his baseline with a normal neurologic exam, I do not feel that labs or imaging are indicated. He states he only came in because he lives that here, and he is requesting to watch TV. At this time, I do not feel that he requires any psychiatric evaluation, as he is at his baseline and is not a harm to himself or anyone else. We will contact [facility] to see if they are able to come and get the patient. [facility] arrived coming to get the patient, at which point he became very agitated that he was going back there. He states that that he really lives here and thought that he could stay here. He became verbally aggressive, cursing and yelling at everyone. He walked out on his own accord and went with [facility] staff agreeably, but initially we had called police with concern that given his level of verbal escalation, we were concerned he would become physically aggressive. Police did not arrive prior to patient leaving. Critical Care Critical Care Time Critical Care Time: No
[2023-09-03] MEDS: ACETAMINOPHEN 500MG TAB 1000 MG PO (20:10)
[2023-09-03] MEDS: IBUPROFEN 400 MG TABLET 800 MG PO (20:10)
--- NOTE | 2023-09-03 20:10 | PC.NURSE ---
contacted [facility] at the patient's request; [phone]. states this is sister
--- NOTE | 2023-09-03 20:41 | PC.NURSE ---
helen [facility] for ride
[2023-09-03 21:31] VITALS: BP 158/82; PULSE 98; RESP 20; TEMP 36.8; O2SAT 96
== END 2023-09-03 21:34 | disposition other institution (70) ==
PROVIDERS: Emergency Provider Emergency Medicine; PCP Nurse Practitioner Acute Care
DX: F20.9 Schizophrenia, unspecified (principal); M54.9 Dorsalgia, unspecified; E03.9 Hypothyroidism, unspecified; N40.0 Benign prostatic hyperplasia without lower urinary tract symptoms; I25.10 Atherosclerotic heart disease of native coronary artery without angina pectoris; F17.210 Nicotine dependence, cigarettes, uncomplicated
CPT/HCPCS: 99283

== ENCOUNTER 2023-10-06 10:08 | Emergency (ER) | payer MEDICARE, MEDICAID, SELFPAY ==
--- NOTE | 2023-10-06 10:11 | HMH.EDGENADL ---
Discharge Plan Disposition Patient Disposition: Home, Self-Care Condition: Good Prescriptions Prescriptions: No Action multivitamin Tablet 1 tab PO DAILY divalproex 500 mg tablet,delayed release (DR/EC) 500 mg PO AM Patient Comments: GIVE 1 TABLET BY MOUTH EVERY MORNING;GIVE 2 TABLETS BY MOUTH AT BEDTIME levothyroxine 25 mcg tablet 25 mcg PO DAILYDM Patient Comments: GIVE 1 TABLET BY MOUTH EVERY MORNING tamsulosin 0.4 mg capsule 0.4 mg PO HS Patient Comments: GIVE 1 CAPSULE BY MOUTH AT BEDTIME docusate sodium 100 mg capsule 200 mg PO BID Patient Comments: GIVE 2 CAPSULES (200MG) BY MOUTH TWICE DAILY melatonin 5 mg tablet 5 mg PO HS Combivent Respimat 20-100 mcg/actuation mist 1 puff inhalation QID Rx Instructions: space evenly during waking hours lorazepam 0.5 mg tablet 0.5 mg PO BIDP PRN (Reason: Anxiety) Patient Comments: 0.5 mg orally twice a day As Needed for Anxiety divalproex 500 mg tablet,delayed release (DR/EC) 1,000 mg PO HS Patient Comments: GIVE 1 TABLET BY MOUTH EVERY MORNING;GIVE 2 TABLETS BY MOUTH AT BEDTIME oxcarbazepine 300 mg Tablet 300 mg PO BID hydroxyzine pamoate 50 mg Capsule 50 mg PO Q6HP PRN (Reason: Agitation) amoxicillin-pot clavulanate 875-125 mg tablet 1 tab PO BID 4 Days Qty: 8 0RF clozapine 200 mg Tablet 200 mg PO HS 30 Days Qty: 0 0RF Referrals Follow up/Referrals: Provider,Referral, MD [Primary Care Provider] - See instructions Activity Restrictions/Add. Instructions Additional Instructions/Restrictions: Please return with any new or worsening symptoms. Clinical Impressions Clinical Impression: Muscle soreness Discharge ED Provider: Alessandro Anderson General Adult HPI General Chief complaint: Weakness Stated complaint: weakness Time Seen by Provider: 10/06/23 10:10 History of Present Illness HPI narrative: Patient presents for soreness in his legs which occurred while walking around town. He does not disclose to me if he has experienced similar symptoms before. He initially mentioned weakness in his leg, right greater than left, but upon further interview and clarification describes that he meant soreness and fatigue rather than motor function. He is requesting a meal and a warm blanket. Symptoms were gradual in onset, have grossly improved at this time. He was able to ambulate to the emergency department, denies any trauma, denies any pain elsewhere, denies any numbness or tingling. Denies any gait disturbance nor was gait disturbance visualized. No previous therapies. I asked him if there is anything I can do for him in the emergency department or if he has specific concerns and he declines any treatment nor describes any further specific concerns other than fatigue and some mild soreness in his right hip that has since resolved. Patient is drowsy after receiving warm blanket prior to my interview but arousable, alert and oriented, denies any AVH or SI. Please note that above description of symptoms, in this electronic medical record under categorization of recalled from ER triage doctor by RN are reflective of an initial nursing assessment, however, is not reflective of my full history and physical exam that was personally taken and clarified. Consequentially, this preceding description of symptoms, which may include the patient's categorized chief complaint in the EMR, do not reflect my personal clinical impression, and the ultimate description of history of present illness and patient stated complaints should be deferred to this section of the note. Unless stated otherwise or congruent with this section of the note, additional signs, symptoms, or incongruence should be interpreted as inaccurate with my clinical impression. Related Data Home Medications Medication Instructions Recorded Confirmed divalproex 500 mg tablet,delayed 500 mg PO AM MOOD 12/12/22 02/07/23 release docusate sodium 100 mg capsule 200 mg PO BID Constipation 12/12/22 02/07/23 levothyroxine 25 mcg tablet 25 mcg PO DAILYDM Thyroid 12/12/22 02/07/23 melatonin 5 mg tablet 5 mg PO HS Insomnia 12/12/22 02/07/23 multivitamin 1 tab PO DAILY Supplement 12/12/22 02/07/23 tamsulosin 0.4 mg capsule 0.4 mg PO HS Prostate 12/12/22 02/07/23 ipratropium 20 mcg-albuterol 100 1 puff inhalation QID Breathing 02/05/23 02/07/23 mcg/actuation mist for inhalation Problems (Combivent Respimat) divalproex 500 mg tablet,delayed 1,000 mg PO HS MOOD 02/07/23 02/07/23 release hydroxyzine pamoate 50 mg capsule 50 mg PO Q6HP PRN Agitation 02/07/23 02/07/23 lorazepam 0.5 mg tablet 0.5 mg PO BIDP PRN Anxiety 02/07/23 02/07/23 oxcarbazepine 300 mg tablet 300 mg PO BID MOOD 02/07/23 02/07/23 Previous Rx's Medication Instructions Recorded amoxicillin 875 mg-potassium 1 tab PO BID 4 days #8 tabs 02/09/23 clavulanate 125 mg tablet clozapine 200 mg tablet 200 mg PO HS MOOD 30 days #0 tabs 02/09/23 Allergies Allergy/AdvReac Type Severity Reaction Status Date / Time No Known Allergies Allergy Verified 12/06/18 13:32 [facility] Disclaimer: The information contained in this section may have been updated after the patient was seen, as this information can be updated by other users. Medical History Schizophrenia Valproic acid toxicity Abnormal ultrasound Bilateral arm numbness and tingling while sleeping Bilateral arm pain Tachycardia CAD (coronary artery disease) Hypotension Family History Other No significant family history Social History Smoking Status: Unknown if ever smoked second hand exposure: No (UNABLE TO DETERMINE R/T PT NOT COOPERATING) alcohol intake: never substance use type: crack/cocaine current occupational status: disabled Travel in the last 8 weeks: None household members: other housing: other caffeine: Yes ROS Obtained: Yes other As per HPI Physical Exam General General appearance: in no apparent distress Comment: Drowsy but arousable, alert and oriented Head Head exam: atraumatic and normocephalic Eye Eye exam: Present normal appearance Neck Neck exam: Present normal inspection Chest Chest inspection: Present normal inspection and symmetric chest wall rise Respiratory Respiratory exam: Present normal lung sounds bilaterally; Absent respiratory distress Cardiovascular Cardiovascular exam: Present regular rate and normal rhythm Abdominal Exam Abdominal exam: Present soft Neurological Exam Neurological exam: Present alert and oriented X3 Psychiatric Psychiatric exam: Present normal affect and normal mood Skin Skin exam: Present warm and dry Other Other exam information: No focal tenderness to palpation in spine, bilateral lower extremities, full strength and sensation, normal gait, no evidence of trauma in head or neck or elsewhere Medical Decision Making Medical Records Medical records reviewed: Yes I reviewed the patient's medical records. [place] Inquiry Pt receiving controlled substance: No Vital Signs: 10/06/23 10:15 10/06/23 10:30 10/06/23 12:29 Temperature 98.7 F 98.7 F Temperature Source Oral Oral Pulse Rate 89 89 Pulse Rate [Left Radial] 89 Respiratory Rate 17 18 Blood Pressure 110/92 H 110/92 H Blood Pressure [Right Arm] 126/79 Blood Pressure Mean 95 Blood Pressure Mean [Right Arm] 94 Blood Pressure Source Automatic Cuff Blood Pressure Position Sitting 02 Sat by Pulse Oximetry 95 98 Oxygen Delivery Method Room Air Room Air Medical Decision Narrative: Patient with history and exam per above presenting for evaluation of muscle fatigue after walking. Per chart review patient has had presentations similar to today, during which he frequently requests accommodation, states that he simply likes to be in the emergency department, and after interview is not requesting any treatment at this time. Diagnoses considered include muscle soreness, no clinical evidence of traumatic injury, psychosis, charles, rhabdomyolysis, compartment syndrome, cauda equina syndrome, clinical intoxication. After chart review patient appears to be mentally at baseline and does not pose a threat to himself or other people acutely at this time. He lives in a facility with medical supervision and this was contacted for transport. I discussed my clinical impression with patient and answered all questions. At this time, the evidence for any other entities in the differential is insufficient to warrant any further testing or ED observation. This was explained to the patient. The patient was advised that persistent or worsening symptoms require further evaluation. Critical Care Critical Care Time Critical Care Time: No
[2023-10-06 10:15] VITALS: BP 126/79; PULSE 89; RESP 17; TEMP 37.1; O2SAT 95; BMI 20.2
[2023-10-06 10:30] VITALS: BP 110/92; PULSE 89; O2SAT 98
--- NOTE | 2023-10-06 11:00 | PC.NURSE ---
[facility] CALLED FOR A LUNCH TRAY
--- NOTE | 2023-10-06 11:05 | PC.NURSE ---
CALLED [facility] TO LET THEM WAS READY FOR DISCHARGE THEY STATED THEY WOULD CALL THE BOSS TO HAVE SOMEONE COME PICK PT UP
[2023-10-06 12:29] VITALS: BP 110/92; PULSE 89; RESP 18; TEMP 37.1; O2SAT 98
== END 2023-10-06 12:30 | disposition home or self-care (01) ==
PROVIDERS: Emergency Provider Emergency Medicine
DX: R53.83 Other fatigue (principal); M79.18 Myalgia, other site
CPT/HCPCS: 99282

== ENCOUNTER 2023-10-07 14:07 | Emergency (ER) | payer MEDICARE, MEDICAID, SELFPAY ==
[2023-10-07 14:07] VITALS: BP 172/100; PULSE 88; RESP 18; TEMP 36.4; O2SAT 95; BMI 20.2
--- NOTE | 2023-10-07 14:09 | ED_ITS ---
Discharge Plan Disposition Patient Disposition: Home, Self-Care Condition: Good Prescriptions Prescriptions: No Action multivitamin Tablet 1 tab PO DAILY divalproex 500 mg tablet,delayed release (DR/EC) 500 mg PO AM Patient Comments: GIVE 1 TABLET BY MOUTH EVERY MORNING;GIVE 2 TABLETS BY MOUTH AT BEDTIME levothyroxine 25 mcg tablet 25 mcg PO DAILYDM Patient Comments: GIVE 1 TABLET BY MOUTH EVERY MORNING tamsulosin 0.4 mg capsule 0.4 mg PO HS Patient Comments: GIVE 1 CAPSULE BY MOUTH AT BEDTIME docusate sodium 100 mg capsule 200 mg PO BID Patient Comments: GIVE 2 CAPSULES (200MG) BY MOUTH TWICE DAILY melatonin 5 mg tablet 5 mg PO HS Combivent Respimat 20-100 mcg/actuation mist 1 puff inhalation QID Rx Instructions: space evenly during waking hours lorazepam 0.5 mg tablet 0.5 mg PO BIDP PRN (Reason: Anxiety) Patient Comments: 0.5 mg orally twice a day As Needed for Anxiety divalproex 500 mg tablet,delayed release (DR/EC) 1,000 mg PO HS Patient Comments: GIVE 1 TABLET BY MOUTH EVERY MORNING;GIVE 2 TABLETS BY MOUTH AT BEDTIME oxcarbazepine 300 mg Tablet 300 mg PO BID hydroxyzine pamoate 50 mg Capsule 50 mg PO Q6HP PRN (Reason: Agitation) amoxicillin-pot clavulanate 875-125 mg tablet 1 tab PO BID 4 Days Qty: 8 0RF clozapine 200 mg Tablet 200 mg PO HS 30 Days Qty: 0 0RF Referrals Follow up/Referrals: Kai Martinez APRN [Primary Care Provider] - See instructions Activity Restrictions/Add. Instructions Additional Instructions/Restrictions: Please call and schedule a follow-up appointment with your PCP within 1 week. You may take Tylenol or Motrin alternating every 4 hours as needed for pain swelling etc. Return to emergency department for any worsening signs or symptoms. Clinical Impressions Clinical Impression: Abrasion Accidental fall Qualifiers: Encounter type: initial encounter Qualified Code(s): W19.XXXA - Unspecified fall, initial encounter Instructions Patient Instructions: How to Prevent Falls Discharge ED Provider: Alessandro Anderson General Adult HPI <ROSANNA Cadena - Last Filed: 10/07/23 15:20> General Chief complaint: Fall Stated complaint: Fall Time Seen by Provider: 10/07/23 14:09 History of Present Illness HPI narrative: Patient presents for evaluation of a witnessed ground-level fall. Patient reports that his right knee gave out . This occurred in front of staff member of his correction. He did not strike his head did not lose consciousness was able to ambulate at the scene and in the emergency department. Patient currently denies any chest pain fever chills mops this much easier melena nausea vomiting diarrhea headache Related Data Home Medications Medication Instructions Recorded Confirmed divalproex 500 mg tablet,delayed 500 mg PO AM MOOD 12/12/22 02/07/23 release docusate sodium 100 mg capsule 200 mg PO BID Constipation 12/12/22 02/07/23 levothyroxine 25 mcg tablet 25 mcg PO DAILYDM Thyroid 12/12/22 02/07/23 melatonin 5 mg tablet 5 mg PO HS Insomnia 12/12/22 02/07/23 multivitamin 1 tab PO DAILY Supplement 12/12/22 02/07/23 tamsulosin 0.4 mg capsule 0.4 mg PO HS Prostate 12/12/22 02/07/23 ipratropium 20 mcg-albuterol 100 1 puff inhalation QID Breathing 02/05/23 02/07/23 mcg/actuation mist for inhalation Problems (Combivent Respimat) divalproex 500 mg tablet,delayed 1,000 mg PO HS MOOD 02/07/23 02/07/23 release hydroxyzine pamoate 50 mg capsule 50 mg PO Q6HP PRN Agitation 02/07/23 02/07/23 lorazepam 0.5 mg tablet 0.5 mg PO BIDP PRN Anxiety 02/07/23 02/07/23 oxcarbazepine 300 mg tablet 300 mg PO BID MOOD 02/07/23 02/07/23 Previous Rx's Medication Instructions Recorded amoxicillin 875 mg-potassium 1 tab PO BID 4 days #8 tabs 02/09/23 clavulanate 125 mg tablet clozapine 200 mg tablet 200 mg PO HS MOOD 30 days #0 tabs 02/09/23 Allergies Allergy/AdvReac Type Severity Reaction Status Date / Time No Known Allergies Allergy Verified 12/06/18 13:32 PFS <ROSANNA Cadena - Last Filed: 10/07/23 15:20> [facility] Disclaimer: The information contained in this section may have been updated after the patient was seen, as this information can be updated by other users. Medical History Schizophrenia Valproic acid toxicity Abnormal ultrasound Bilateral arm numbness and tingling while sleeping Bilateral arm pain Tachycardia CAD (coronary artery disease) Hypotension Family History Other No significant family history Social History Smoking Status: Current every day smoker tobacco type: cigarettes packs per day: 1 second hand exposure: No (UNABLE TO DETERMINE R/T PT NOT COOPERATING) alcohol intake: never substance use type: crack/cocaine current occupational status: disabled Travel in the last 8 weeks: None household members: other housing: other caffeine: Yes <ROSANNA Cadena - Last Filed: 10/07/23 15:20> ROS Obtained: Yes Systems reviewed as appropriate & no additional complaints except as documented Physical Exam <ROSANNA Cadena - Last Filed: 10/07/23 15:20> General General appearance: alert and in no apparent distress Head Head exam: atraumatic and normal inspection Eye Eye exam: Present normal appearance ENT ENT exam: Present normal exam Neck Neck exam: Present normal inspection Chest Chest inspection: Present normal inspection and symmetric chest wall rise Respiratory Respiratory exam: Present normal lung sounds bilaterally; Absent respiratory distress or accessory muscle use Cardiovascular Cardiovascular exam: Present regular rate, normal rhythm, normal heart sounds, +S1 and +S2 Abdominal Exam Abdominal exam: Present soft and normal bowel sounds; Absent tenderness Extremities Exam Extremities exam: Present full ROM and normal capillary refill; Absent tenderness, edema or joint swelling Back Exam Back exam: Present normal inspection and full ROM; Absent tenderness Neurological Exam Neurological exam: Present alert, oriented X3 and CN II-XII intact Psychiatric Psychiatric exam: Present normal affect and normal mood Skin Skin exam: Present warm, dry and normal color Other Other exam information: Bilateral lower extremity exam shows him to be intact grossly to exam with full range of motion. There is no tenderness. He is neurovascular distally. He does have superficial abrasions at both patella without evidence of deformity ecchymosis edema effusion erythema. Medical Decision Making <ROSANNA Cadena - Last Filed: 10/07/23 15:20> Medical Records Medical records reviewed: Yes I reviewed the patient's medical records. [place] Inquiry Pt receiving controlled substance: No Vital Signs: 10/07/23 14:07 10/07/23 15:39 Temperature 97.6 F 97.6 F Temperature Source Oral Oral Pulse Rate 79 Pulse Rate [Right Radial] 88 Respiratory Rate 18 20 Blood Pressure 158/89 H Blood Pressure [Right Arm] 172/100 H Blood Pressure Mean [Right Arm] 124 Blood Pressure Source [Right Arm] Automatic Cuff Blood Pressure Position [Right Arm] Sitting 02 Sat by Pulse Oximetry 95 Oxygen Delivery Method Room Air Room Air Lab Data Lab results reviewed: Yes I reviewed the patient's lab results. Orders (Tests/Meds): ORDERS Category Date Time Status Femur XR left 2 views [XR femur LT 2V] Stat Exams 10/07/23 14:34 Completed Femur XR right 2 views [XR femur RT 2V] Stat Exams 10/07/23 14:34 Completed Knee XR left 3 views [XR knee LT 3V] Stat Exams 10/07/23 14:34 Completed Knee XR right 3 views [XR knee RT 3V] Stat Exams 10/07/23 14:34 Completed Tibia/fibula XR left 2 views [XR tibia fibula LT 2V] Exams 10/07/23 14:34 Taken Stat Tibia/fibula XR right 2 views [XR tibia fibula RT 2V] Exams 10/07/23 14:34 Completed Stat Medical Decision Narrative: In summary patient is a 68-year-old male who presents to the emergency department for evaluation of ground-level. Patient is hemodynamically stable upon arrival, afebrile. Zickel exam is remarkable for superficial abrasions at both patella without stigmata of any other injury. Patient had a similar event yesterday but did strike his head but ultimately no acute injury was found he was discharged home. Patient again did not have any loss of consciousness today or trauma to any other area and was witnessed by a staff member of the facility. Patient has normal stability of the bilateral knees without evidence of ligamentous disruption or other soft tissue injury.. Differential diagnosis includes superficial abrasion versus joint effusion versus occult fracture etc. Initial workup will be conducted with plain film x-rays. Initial workup reviewed by me and his plain film x-rays via my informal interpretation showed no acute fracture or joint effusion or other abnormality. Upon repeat evaluation patient is able to ambulate without assistance without difficulty. Given this patient is appropriate for discharge back to his correction with follow-up with his PCP as needed. <Alessandro Anderson MD - Last Filed: 10/07/23 18:50> Vital Signs: 10/07/23 14:07 10/07/23 15:39 Temperature 97.6 F 97.6 F Temperature Source Oral Oral Pulse Rate 79 Pulse Rate [Right Radial] 88 Respiratory Rate 18 20 Blood Pressure 158/89 H Blood Pressure [Right Arm] 172/100 H Blood Pressure Mean [Right Arm] 124 Blood Pressure Source [Right Arm] Automatic Cuff Blood Pressure Position [Right Arm] Sitting 02 Sat by Pulse Oximetry 95 Oxygen Delivery Method Room Air Room Air Orders (Tests/Meds): ORDERS Category Date Time Status Femur XR left 2 views [XR femur LT 2V] Stat Exams 10/07/23 14:34 Completed Femur XR right 2 views [XR femur RT 2V] Stat Exams 10/07/23 14:34 Completed Knee XR left 3 views [XR knee LT 3V] Stat Exams 10/07/23 14:34 Completed Knee XR right 3 views [XR knee RT 3V] Stat Exams 10/07/23 14:34 Completed Tibia/fibula XR left 2 views [XR tibia fibula LT 2V] Exams 10/07/23 14:34 Taken Stat Tibia/fibula XR right 2 views [XR tibia fibula RT 2V] Exams 10/07/23 14:34 Completed Stat Medical Decision Narrative: In summary patient is a 68-year-old male who presents to the emergency department for evaluation of ground-level. Patient is hemodynamically stable upon arrival, afebrile. Zickel exam is remarkable for superficial abrasions at both patella without stigmata of any other injury. Patient had a similar event yesterday but did strike his head but ultimately no acute injury was found he was discharged home. Patient again did not have any loss of consciousness today or trauma to any other area and was witnessed by a staff member of the facility. Patient has normal stability of the bilateral knees without evidence of ligamentous disruption or other soft tissue injury.. Differential diagnosis includes superficial abrasion versus joint effusion versus occult fracture etc. Initial workup will be conducted with plain film x-rays. Initial workup reviewed by me and his plain film x-rays via my informal interpretation showed no acute fracture or joint effusion or other abnormality. Upon repeat evaluation patient is able to ambulate without assistance without difficulty. Given this patient is appropriate for discharge back to his correction with follow-up with his PCP as needed. I was consulted by the RAYMUNDO, and we discussed the complexity of the problems being addressed.I approved the treatment and management plan for this patient?s care in the Emergency Department, thus performing a substantive portion of the medical decision making.Signed, Alessandro Anderson MD Critical Care <ROSANNA Cadena - Last Filed: 10/07/23 15:20> Critical Care Time Critical Care Time: No
--- NOTE | 2023-10-07 14:34 | XR_ITS ---
FINAL REPORT CLINICAL HISTORY: fall, right knee pain COMPARISON: None FINDINGS: RIGHT KNEE 3 views of the right knee were obtained. There is no acute fracture or dislocation. Visualized joint spaces are normally aligned. Soft tissues are unremarkable. IMPRESSION: No acute bony abnormality. Reviewed, Interpreted and Dictated by Sulaiman Wang MD Transcribed by Aissatou Bustillos Authenticated and [facility]
--- NOTE | 2023-10-07 14:34 | XR_ITS ---
FINAL REPORT CLINICAL HISTORY: fall FINDINGS: Left femur Two views were obtained. There is no acute fracture or dislocation. The joint spaces appear normal. No soft tissue abnormality is identified. IMPRESSION: No acute process. Reviewed, Interpreted and Dictated by Sulaiman Wang MD Transcribed by Melissa Freeman Authenticated and [facility]
--- NOTE | 2023-10-07 14:34 | XR_ITS ---
FINAL REPORT CLINICAL HISTORY: fall, right knee pain COMPARISON: None FINDINGS: LEFT KNEE 3 views of the left knee were obtained. There is no acute fracture or dislocation. Visualized joint spaces are normally aligned. Soft tissues are unremarkable. IMPRESSION: No acute bony abnormality. Reviewed, Interpreted and Dictated by Sulaiman Wang MD Transcribed by Aissatou Bustillos Authenticated and [facility]
--- NOTE | 2023-10-07 14:34 | XR_ITS ---
FINAL REPORT CLINICAL HISTORY: fall FINDINGS: Right femur Two views were obtained. There is no acute fracture or dislocation. The joint spaces appear normal. No soft tissue abnormality is identified. IMPRESSION: No acute process. Reviewed, Interpreted and Dictated by Sulaiman Wang MD Transcribed by Melissa Freeman Authenticated and [facility]
--- NOTE | 2023-10-07 14:34 | XR_ITS ---
FINAL REPORT CLINICAL HISTORY: Acute right leg pain fall COMPARISON: None FINDINGS: 2 views of the right tib-fib were obtained. There is no acute fracture or dislocation. The joint spaces are intact. There is no soft tissue abnormality. IMPRESSION: No acute fracture Reviewed, Interpreted and Dictated by Sulaiman Wang MD Transcribed by ROSANNA Lanier Authenticated and [facility]
--- NOTE | 2023-10-07 14:34 | XR_ITS ---
FINAL REPORT CLINICAL HISTORY: Acute left leg pain, fall COMPARISON: none FINDINGS: 2 views of the left tib-fib were obtained. There is no acute fracture or dislocation. The joint spaces are intact. There is no soft tissue abnormality. IMPRESSION: No acute fracture Reviewed, Interpreted and Dictated by Sulaiman Wang MD Transcribed by ROSANNA Lanier Authenticated and [facility]
--- NOTE | 2023-10-07 15:18 | PC.NURSE ---
PT AMBULATED IN HALLWAY WITH STAND BY WATCH
[2023-10-07 15:39] VITALS: BP 158/89; PULSE 79; RESP 20; TEMP 36.4; O2SAT 97
== END 2023-10-07 15:41 | disposition home or self-care (01) ==
PROVIDERS: Emergency Provider Emergency Medicine; PCP Nurse Practitioner Acute Care
DX: S80.211A Abrasion, right knee, initial encounter (principal); S80.212A Abrasion, left knee, initial encounter; W19.XXXA Unspecified fall, initial encounter
CPT/HCPCS: 73552; 73562; 73590; 99284

== ENCOUNTER 2023-10-30 16:30 | Emergency (ER) | payer MEDICARE, MEDICAID, SELFPAY ==
[2023-10-30] VITALS (10 sets, daily range): BP systolic 122–150; BP diastolic 68–97; PULSE 72–101; RESP 18–20; TEMP 36.8; O2SAT 95–98; BMI 19.5
--- NOTE | 2023-10-30 16:53 | CT_ITS ---
PROCEDURE INFORMATION: Exam: CT Cervical Spine Without Contrast Exam date and time: 10/30/2023 5:51 PM Age: 68 years old Clinical indication: Injury or trauma; Fall; Blunt trauma; Additional info: Found down by police, AMS TECHNIQUE: Imaging protocol: Computed tomography of the cervical spine without contrast. Radiation optimization: All CT scans at this facility use at least one of these dose optimization techniques: automated exposure control; mA and/or kV adjustment per patient size (includes targeted exams where dose is matched to clinical indication); or iterative reconstruction. COMPARISON: CT HEAD/BRAIN WO CON 10/30/2023 5:50 PM FINDINGS: Bones: Osteopenia. Craniocervical alignment is normal. The occipital condyles are intact. The odontoid is intact. Moderate-severe osteoarthritic sclerosis and spurring at the atlantodens interval. No jumped or perched facets. No fractures. 2 mm degenerative retrolisthesis C4-C5. No blastic or lytic lesions. Moderate disc space narrowing C4-C5 and mild disc space narrowing C5-C6 and C6-C7, with mild marginal spurring. Minimal 1-2 mm disc bulge C3-C4 and 2 mm posterior mixed spondylotic protrusion C4-C5 and C6-C7. Moderate-severe canal stenosis C4-C5. Mild canal stenosis C3-C4 , C5-C6, and C6-C7. There is left foraminal stenosis which is mild-moderate C4-C5, mild C5-C6, and moderate-severe C6-C7. There is right foraminal stenosis which is mild-moderate C4-C5. Lungs: Visualized pulmonary apices are clear. Thyroid: The partially visualized thyroid gland is moderately atrophic. Correlate clinically for evidence of hypothyroidism. Soft tissues: Paraspinous soft tissues are unremarkable without significant soft tissue swelling or soft tissue hematoma. IMPRESSION: 1. No evidence of fracture or acute traumatic subluxation. 2. Osteopenia and osteoarthritic changes with canal and foraminal stenoses detailed above. 3. The partially visualized thyroid gland is moderately atrophic. Correlate clinically for evidence of hypothyroidism.
--- NOTE | 2023-10-30 16:53 | CT_ITS ---
PROCEDURE INFORMATION: Exam: CT Head Without Contrast Exam date and time: 10/30/2023 5:50 PM Age: 68 years old Clinical indication: Injury or trauma; Fall; Blunt trauma (contusions or hematomas); Additional info: Found down by police, [place] TECHNIQUE: Imaging protocol: Computed tomography of the head without contrast. Radiation optimization: All CT scans at this facility use at least one of these dose optimization techniques: automated exposure control; mA and/or kV adjustment per patient size (includes targeted exams where dose is matched to clinical indication); or iterative reconstruction. COMPARISON: CT HEAD/BRAIN WO CON 02/07/2023 7:05 AM FINDINGS: Brain: Moderate generalized cerebral/cerebellar atrophy. Mild bilateral white matter hypodensities which are nonspecific but most commonly associated with chronic microvascular ischemia in this age group. The IACs are grossly normal. Borderline high riding right jugular bulb without evidence of dehiscence, sigmoid plate intact. No extra-axial fluid collections. No evidence of acute intracranial hemorrhage. Cerebral/cerebellar thomas-white matter differentiation is well maintained. No CT evidence of large territory acute or subacute intracranial ischemia/infarct. No intracranial mass lesions. No midline shift or herniation. Cerebral ventricles: Mild compensatory ventriculomegaly secondary to central atrophy. Pituitary gland and sella: The sella is grossly normal. Paranasal sinuses: Mucosal thickening in the left maxillary sinus, bilateral frontal sinuses, left ethmoid sinuses, suggesting mild chronic sinus inflammatory disease. No fluid levels. The other paranasal sinuses are clear. Mastoid air cells: Visualized mastoid air cells are clear. Orbital cavities: No acute intraorbital findings. Bones: The calvarium and visualized facial bones are intact. Soft tissues: The scalp and visualized soft tissues demonstrate no acute abnormality. 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 Vasculature: Mild-moderate calcific atherosclerosis. No asymmetric vascular hyperdensities suggestive of thrombosis are identified. IMPRESSION: 1. No acute intracranial process. No intracranial hemorrhage or mass effect. 2. Nonemergent findings detailed above.
--- NOTE | 2023-10-30 16:53 | XR_ITS ---
PROCEDURE INFORMATION: Exam: XR Chest Exam date and time: 10/30/2023 5:54 PM Age: 68 years old Clinical indication: Injury or trauma; Fall; Blunt trauma (contusions or hematomas); Additional info: Found down by police, AMS TECHNIQUE: Imaging protocol: Radiologic exam of the chest. Views: 1 view. COMPARISON: CT ANGIO CHEST PE PROTOCOL 02/07/2023 6:25 AM FINDINGS: Lungs: Faint airspace opacities at both lung bases, greater on the left. Pleural spaces: Unremarkable. No pleural effusion. No pneumothorax. Heart/Mediastinum: Unremarkable. No cardiomegaly. Vasculature: Mild aortic tortuosity. Bones/joints: Unremarkable. IMPRESSION: Bibasilar airspace disease may represent pneumonia.
--- NOTE | 2023-10-30 17:05 | CT_ITS ---
PROCEDURE INFORMATION: Exam: CTA Chest With Contrast Exam date and time: 10/30/2023 5:56 PM Age: 68 years old Clinical indication: Cough; Additional info: Syncope TECHNIQUE: Imaging protocol: Computed tomographic angiography of the chest with contrast. Exam focused on the arteries. 3D rendering (Not supervised by radiologist): MIP and/or 3D reconstructed images were created by the technologist. Radiation optimization: All CT scans at this facility use at least one of these dose optimization techniques: automated exposure control; mA and/or kV adjustment per patient size (includes targeted exams where dose is matched to clinical indication); or iterative reconstruction. Contrast material: ISOVUE 370; Contrast volume: 100 ml; Contrast route: INTRAVENOUS (IV); COMPARISON: CT ANGIO CHEST PE PROTOCOL 02/07/2023 6:25 AM FINDINGS: Pulmonary arteries: Normal. No pulmonary emboli. Aorta: Mild atherosclerotic changes are seen within the thoracic aorta without evidence of aneurysm. Lungs: Mild bibasilar atelectasis. Pleural spaces: Minor bilateral pleural fluid. Heart: Unremarkable. No cardiomegaly. No pericardial effusion. Coronary arteries: Mild coronary artery calcification. Lymph nodes: Unremarkable. No enlarged lymph nodes. Liver: 2.0 cm low-density right hepatic lobe mass. Kidneys and ureters: Bilateral simple renal cysts measuring up 2.0 cm. Bones/joints: T12 vertebral body compression deformity. The anterior aspect of the vertebral body is decreased to approximately 30% of normal height. Old left-sided rib fractures. Soft tissues: Unremarkable. IMPRESSION: 1. Bibasilar atelectasis and minor bilateral pleural fluid. 2. T12 vertebral body compression deformity of uncertain age but new since 02/07/2023. 3. Simple bilateral renal cysts. No follow-up imaging is recommended. 4. 2.0 cm low-density right hepatic lobe mass which is incompletely characterized on this exam. Recommend further evaluation with liver ultrasound and/or dynamic contrast enhanced MRI. COMMENTS: Consistent with the [employer]'s Incidental Findings Committee white paper (J Am Bryson Radiol 2018): Any incidental renal lesion less than 1 cm or classified as too small to characterize, or any incidental cystic renal lesion characterized as simple-appearing, is likely benign. No follow-up imaging is recommended for these lesions per consensus recommendations based on imaging criteria.
--- NOTE | 2023-10-30 17:05 | CT_ITS ---
PROCEDURE INFORMATION: Exam: CTA Head With Contrast, Arteriography Exam date and time: 10/30/2023 5:53 PM Age: 68 years old Clinical indication: Syncope and collapse TECHNIQUE: Imaging protocol: Computed tomographic angiography of the head with contrast. Exam focused on the arteries. 3D rendering (Not supervised by radiologist): MIP and/or 3D reconstructed images were created by the technologist. COMPARISON: CT HEAD/BRAIN WO CON 10/30/2023 5:50 PM FINDINGS: ANTERIOR CIRCULATION: Right internal carotid artery: The right ICA petrous segment is unremarkable. Mild calcific atherosclerosis in the cavernous segment without significant stenosis. The right ICA supraclinoid segment is unremarkable. Right middle cerebral artery: Unremarkable. No occlusion or significant stenosis. No aneurysm. Right anterior cerebral artery: Unremarkable. No occlusion or significant stenosis. No aneurysm. The anterior communicating artery is unremarkable. Left internal carotid artery: The left ICA petrous segment is unremarkable. Mild calcific atherosclerosis in the cavernous segment without significant stenosis. The left ICA supraclinoid segment is unremarkable. Left middle cerebral artery: Unremarkable. No occlusion or significant stenosis. No aneurysm. Left anterior cerebral artery: Unremarkable. No occlusion or significant stenosis. No aneurysm. POSTERIOR CIRCULATION: Right vertebral artery: Small right vertebral artery, normal variant. No occlusion or significant stenosis. No aneurysm. Left vertebral artery: Left vertebral artery is mildly dominant. No occlusion or significant stenosis. No aneurysm. Basilar artery: Unremarkable. No occlusion or significant stenosis. No aneurysm. Right posterior cerebral artery: Unremarkable. No occlusion or significant stenosis. No aneurysm. Left posterior cerebral artery: Normal variant persistent origin with hypoplastic left P1 segment. No occlusion or significant stenosis. No aneurysm. Superior sagittal sinus: The dural venous sinuses and major cortical veins enhance appropriately without evidence of thrombosis. Anatomic variant right dominant venous drainage pattern. Brain: No enhancing brain lesions or vascular malformations are identified. IMPRESSION: 1. No evidence of large vessel occlusion or significant stenosis. No evidence of arterial dissection or aneurysm/pseudoaneurysm. 2. No acute process. PROCEDURE INFORMATION: Exam: CTA Neck With Contrast Exam date and time: 10/30/2023 5:53 PM Age: 68 years old Clinical indication: Syncope and collapse TECHNIQUE: Imaging protocol: Computed tomographic angiography of the neck with contrast. Exam focused on the cervical segments of the vasculature. 3D rendering (Not supervised by radiologist): MIP and/or 3D reconstructed images were created by the technologist. Radiation optimization: All CT scans at this facility use at least one of these dose optimization techniques: automated exposure control; mA and/or kV adjustment per patient size (includes targeted exams where dose is matched to clinical indication); or iterative reconstruction. Contrast material: ISOVUE 370; Contrast volume: 100 ml; Contrast route: INTRAVENOUS (IV); COMPARISON: CT CERVICAL SPINE WO CON 10/30/2023 5:51 PM FINDINGS: Right common carotid artery: Normal. No stenosis. No dissection or occlusion. Right internal carotid artery: Mild tortuosity. No stenosis. No dissection or occlusion. Right external carotid artery: Normal. No stenosis. No dissection or occlusion. Left common carotid artery: Mild ostial calcific plaque. No stenosis. No dissection or occlusion. Left internal carotid artery: Normal. No stenosis. No dissection or occlusion. Left external carotid artery: Normal. No stenosis. No dissection or occlusion. Right vertebral artery: Small right vertebral artery, anatomic variant. No stenosis. No dissection or occlusion. Left vertebral artery: Left vertebral artery is dominant. No stenosis. No dissection or occlusion. Brachiocephalic artery: The brachiocephalic artery is unremarkable. Right subclavian artery: The right subclavian artery is unremarkable. Left subclavian artery: The left subclavian artery demonstrates mild calcific plaque without stenosis. Aorta: The visualized aortic arch demonstrates mild ectasia and calcific plaque without evidence of dissection or gross aneurysm. Thyroid: The thyroid gland is moderately atrophic. Correlate clinically for evidence of hypothyroidism. Soft tissues: No significant soft tissue swelling or hematoma. Bones/joints: No acute osseous abnormalities are identified. Mild-moderate cervical degenerative changes. Lungs: Mild pleuroparenchymal scarring in the pulmonary apices bilaterally. 4.5 mm juxtapleural nodule versus nodular scarring in the posterolateral right apex series 3, image 19. This is unchanged from 12/08/2018 and does not require further evaluation. IMPRESSION: 1. No evidence of arterial occlusion, significant stenosis, dissection, or aneurysm/pseudoaneurysm. 2. The thyroid gland is moderately atrophic. Correlate clinically for evidence of hypothyroidism. REFERENCES: NASCET CRITERIA. The degree of stenosis in the cervical segment of the internal carotid artery is based on NASCET criteria. Normal is no stenosis. Mild is less than 50% stenosis. Moderate is 50-69% stenosis. Severe is 70% to 99% stenosis. Total occlusion is no detectable patent lumen.
[2023-10-30 17:19] LABS: Basophils # 0.1 K/mm3 (0-0.2); Basophils % 0.6 % (0.1-2.0); Eosinophils # 1.3 K/mm3 (0.0-0.4); Eosinophils % 12.4 % (0.1-12.0); Hematocrit 39.7 % (42.0-52.0); Hemoglobin 12.8 g/dL (14.1-18.0); Lymphocytes # 2.7 K/mm3 (0.7-4.5); Lymphocytes % 25.9 % (10-50); Mean Corpuscular HGB Conc 32.2 g/dL (31.8-35.4); Mean Corpuscular Hemoglobin 29.7 pg (27.0-31.2); Mean Corpuscular Volume 92.4 fl (80-94); Mean Platelet Volume 8.3 fl (7.4-10.4); Monocytes # 1.9 K/mm3 (0.1-1.0); Monocytes % 17.9 % (1.7-9.3); Neutrophils # 4.5 K/mm3 (1.8-7.8); Neutrophils % 43.2 % (37.0-80.0); Red Blood Count 4.29 M/mm3 (4.60-6.20); Red Cell Distribution Width 17.3 % (11.5-17.5); White Blood Count 10.4 K/mm3 (4.8-10.8)
--- NOTE | 2023-10-30 17:21 | PC.NURSE ---
Pt was in bed 15 initial vitals were 122/72 HR 92 O2 sat of 03 25 mins later before moved to room 7 ... BP 120?72 HR 92 )2 sat of 94
[2023-10-30 17:24] LABS: Platelet Count 24 K/mm3 (142-424)
[2023-10-30 17:25] LABS: Chloride 103 mmol/L (98-107)
--- NOTE | 2023-10-30 17:25 | PC.NURSE ---
Notified MD of critical plt count of 24.
[2023-10-30 17:26] LABS: Potassium 4.5 mmoL/L (3.5-5.1); Sodium 139 mmol/L (136-145)
[2023-10-30 17:28] LABS: Alanine Aminotransferase 16 U/L (12-78); Anion Gap 10.5 mEq/L (5-15); Aspartate Amino Transferase 29 U/L (17-59); Bilirubin,Total 0.3 mg/dl (0.2-1.3); Blood Urea Nitrogen 23 mg/dl (9-20); Carbon Dioxide 30 mmol/L (22.0-30.0); Creatinine Clearance Estimated 57 mL/min (50-200); Estimated Glomerular Filt Rate 66 ml/min (>60); GFR (African American) 80 ML/MIN (>60)
--- NOTE | 2023-10-30 17:28 | ECG_ITS ---
APPROVED REPORT Exam: Resting ECG HR:95 bpm ECG Measurements Heart Rate 95 AXES OK 130 P 53 QRSd 141 QRS 61 QT 393 T 39 QTc 446 Conclusion SINUS RHYTHM INTRAVENTRICULAR CONDUCTION DELAY [130+ ms QRS DURATION] ABNORMAL ECG Electronically signed by : BERTIN DAVILA, 10/31/2023 00:37:21
[2023-10-30 17:29] LABS: Albumin/Globulin Ratio 1.2 (1.1-1.8); Alkaline Phosphatase 104 U/L (38-126); Calcium 9.4 mg/dl (8.4-10.2); Globulin 3.3 g/dL (1.3-3.2); Glucose 110 mg/dl (74-100); Total Protein,Serum 7.3 g/dl (6.3-8.2)
[2023-10-30 17:32] LABS: Acetaminophen < 10 ug/ml (10-30); Salicylate < 1.0 mg/dL (2.0-20.0)
[2023-10-30 17:51] LABS: Troponin I < 0.01 ng/ml (0.00-0.034)
[2023-10-30 17:54] LABS: Ethyl Alcohol < 10 mg/dl (0-10)
[2023-10-30] MEDS: 0.9 % SODIUM CHLORIDE 50 ML VIAL 80 ML IV (17:58)
[2023-10-30] MEDS: SODIUM CHLORIDE 0.9% 10ML SYR (RAD ONLY) 10 ML IV (17:58)
[2023-10-30] MEDS: IOPAMIDOL-370 (76%);100ML BOTTLE 160 ML IV (17:58)
--- NOTE | 2023-10-30 18:37 | ED_ITS ---
Discharge Plan Disposition Patient Disposition: Home, Self-Care Condition: Good Prescriptions Prescriptions: No Action multivitamin Tablet 1 tab PO DAILY divalproex 500 mg tablet,delayed release (DR/EC) 500 mg PO AM Patient Comments: GIVE 1 TABLET BY MOUTH EVERY MORNING;GIVE 2 TABLETS BY MOUTH AT BEDTIME levothyroxine 25 mcg tablet 25 mcg PO DAILYDM Patient Comments: GIVE 1 TABLET BY MOUTH EVERY MORNING tamsulosin 0.4 mg capsule 0.4 mg PO HS Patient Comments: GIVE 1 CAPSULE BY MOUTH AT BEDTIME docusate sodium 100 mg capsule 200 mg PO BID Patient Comments: GIVE 2 CAPSULES (200MG) BY MOUTH TWICE DAILY melatonin 5 mg tablet 5 mg PO HS Combivent Respimat 20-100 mcg/actuation mist 1 puff inhalation QID Rx Instructions: space evenly during waking hours lorazepam 0.5 mg tablet 0.5 mg PO BIDP PRN (Reason: Anxiety) Patient Comments: 0.5 mg orally twice a day As Needed for Anxiety divalproex 500 mg tablet,delayed release (DR/EC) 1,000 mg PO HS Patient Comments: GIVE 1 TABLET BY MOUTH EVERY MORNING;GIVE 2 TABLETS BY MOUTH AT BEDTIME oxcarbazepine 300 mg Tablet 300 mg PO BID hydroxyzine pamoate 50 mg Capsule 50 mg PO Q6HP PRN (Reason: Agitation) amoxicillin-pot clavulanate 875-125 mg tablet 1 tab PO BID 4 Days Qty: 8 0RF clozapine 200 mg Tablet 200 mg PO HS 30 Days Qty: 0 0RF Referrals Follow up/Referrals: Kai Martinez APRN [Primary Care Provider] - See instructions Activity Restrictions/Add. Instructions Additional Instructions/Restrictions: You were evaluated in the emergency department today. Please follow-up closely with your primary care provider. Your platelet count is low, but you do not have any evidence of bleeding at this time. Return to the emergency department for new or worsening symptoms. Clinical Impressions Clinical Impression: Thrombocytopenia, Fatigue Schizophrenia Qualifiers: Schizophrenia type: unspecified Qualified Code(s): F20.9 - Schizophrenia, unspecified Discharge ED Provider: Gertrude Alvarado General Adult HPI General Chief complaint: Weakness Stated complaint: Chest pain Time Seen by Provider: 10/30/23 16:36 Mode of Arrival: EMS Source of Information: Patient and EMS Limitations: No Limitations Description of Symptoms (Recalled from ER Triage Doc. by RN): pt reports dizziness and weakness for a very long time, he states I take 20 pills a day and i think that's what is causing it, reports normal appetite and fluid intake, bystander that called ems stated patient was stumbling around walking down the street when he leaned on the wall and slide down it, denies loc, denies hitting head History of Present Illness HPI narrative: This patient is a 68-year-old male with a history of tobacco use disorder, CAD, hypothyroidism, schizophrenia, chronic thrombocytopenia, pneumonia, and multiple previous ED evaluations for various complaints who is very well-known to the ED presenting from [facility] after being found unconscious. Patient reports that he took his morning medications and was very tired, so he was sleeping all day today. He notes that he is going to be up all night because he slept all day today, so he is requesting to stay here so that way he can hang ou until the morning. t he wonders if they gave him too many medications. He states he takes 20 pills a day. He notes the right now he is feeling fine. Initially he was reportedly unresponsive. EMS arrived with the patient who noted he was stable en route. They noted that he was stumbling around downtown, then was leaned up against a wall, slid down the wall, and then was reportedly unconscious. I am very familiar with the patient and note that he is currently at his baseline. He denies any specific concerns or complaints at this time. Related Data Home Medications Medication Instructions Recorded Confirmed divalproex 500 mg tablet,delayed 500 mg PO AM MOOD 12/12/22 10/30/23 release docusate sodium 100 mg capsule 200 mg PO BID Constipation 12/12/22 10/30/23 levothyroxine 25 mcg tablet 25 mcg PO DAILYDM Thyroid 12/12/22 10/30/23 melatonin 5 mg tablet 5 mg PO HS Insomnia 12/12/22 10/30/23 multivitamin 1 tab PO DAILY Supplement 12/12/22 10/30/23 tamsulosin 0.4 mg capsule 0.4 mg PO HS Prostate 12/12/22 10/30/23 ipratropium 20 mcg-albuterol 100 1 puff inhalation QID Breathing 02/05/23 10/30/23 mcg/actuation mist for inhalation Problems (Combivent Respimat) divalproex 500 mg tablet,delayed 1,000 mg PO HS MOOD 02/07/23 10/30/23 release hydroxyzine pamoate 50 mg capsule 50 mg PO Q6HP PRN Agitation 02/07/23 10/30/23 lorazepam 0.5 mg tablet 0.5 mg PO BIDP PRN Anxiety 02/07/23 10/30/23 oxcarbazepine 300 mg tablet 300 mg PO BID MOOD 02/07/23 10/30/23 Previous Rx's Medication Instructions Recorded amoxicillin 875 mg-potassium 1 tab PO BID 4 days #8 tabs 02/09/23 clavulanate 125 mg tablet clozapine 200 mg tablet 200 mg PO HS MOOD 30 days #0 tabs 02/09/23 Allergies Allergy/AdvReac Type Severity Reaction Status Date / Time No Known Allergies Allergy Verified 10/30/23 16:38 [facility] Disclaimer: The information contained in this section may have been updated after the patient was seen, as this information can be updated by other users. Medical History Schizophrenia Valproic acid toxicity Abnormal ultrasound Bilateral arm numbness and tingling while sleeping Bilateral arm pain Tachycardia CAD (coronary artery disease) Hypotension Family History Other No significant family history Social History Smoking Status: Current every day smoker tobacco type: cigarettes packs per day: 1 second hand exposure: No (UNABLE TO DETERMINE R/T PT NOT COOPERATING) alcohol intake: never substance use type: crack/cocaine current occupational status: disabled Travel in the last 8 weeks: None household members: other housing: other caffeine: Yes ROS Obtained: Yes All systems reviewed & no additional complaints except as documented Physical Exam General General appearance: alert and in no apparent distress Head Head exam: atraumatic and normocephalic Eye Eye exam: Present normal appearance, PERRL and EOMI ENT ENT exam: Present normal exam, normal oropharynx, mucous membranes moist and normal external ear exam Neck Neck exam: Present normal inspection, full ROM and trachea midline; Absent tenderness Chest Chest inspection: Present normal inspection and symmetric chest wall rise; Absent tenderness Respiratory Respiratory exam: Present normal lung sounds bilaterally; Absent respiratory distress, wheezes, stridor or accessory muscle use Cardiovascular Cardiovascular exam: Present regular rate and normal rhythm Abdominal Exam Abdominal exam: Present soft; Absent distention, tenderness or guarding Extremities Exam Extremities exam: Present normal inspection, full ROM and normal capillary refill; Absent tenderness or edema Back Exam Back exam: Present normal inspection and full ROM; Absent tenderness Neurological Exam Neurological exam: Present alert, oriented X3, CN II-XII intact and normal gait; Absent motor sensory deficit Psychiatric Psychiatric exam: Present other (Baseline flight of ideas) Skin Skin exam: Present warm and dry Medical Decision Making Medical Records Medical records reviewed: Yes I reviewed the patient's medical records. [place] Inquiry Pt receiving controlled substance: No Vital Signs: 10/30/23 16:30 10/30/23 16:52 10/30/23 18:09 Temperature 98.2 F Temperature Source Oral Pulse Rate 96 H 89 Pulse Rate [Right Radial] 101 H Respiratory Rate 18 Blood Pressure 127/73 131/82 Blood Pressure [Right Arm] 129/70 Blood Pressure Mean Blood Pressure Mean [Right Arm] 89 Blood Pressure Source Automatic Cuff Blood Pressure Source [Right Arm] Automatic Cuff Blood Pressure Position Sitting Blood Pressure Position [Right Arm] Sitting 02 Sat by Pulse Oximetry 97 96 97 Oxygen Delivery Method Room Air Room Air Room Air 10/30/23 18:19 10/30/23 19:00 10/30/23 20:22 Temperature Temperature Source Pulse Rate 90 76 74 Pulse Rate [Right Radial] Respiratory Rate Blood Pressure 131/82 129/87 144/91 H Blood Pressure [Right Arm] Blood Pressure Mean 99 120 Blood Pressure Mean [Right Arm] Blood Pressure Source Automatic Cuff Blood Pressure Source [Right Arm] Blood Pressure Position Sitting Blood Pressure Position [Right Arm] 02 Sat by Pulse Oximetry 97 98 98 Oxygen Delivery Method Room Air Room Air 10/30/23 20:30 10/30/23 21:00 10/30/23 21:30 Temperature Temperature Source Pulse Rate 78 74 74 Pulse Rate [Right Radial] Respiratory Rate Blood Pressure 150/91 H 130/97 H 135/90 Blood Pressure [Right Arm] Blood Pressure Mean 110 107 115 Blood Pressure Mean [Right Arm] Blood Pressure Source Blood Pressure Source [Right Arm] Blood Pressure Position Blood Pressure Position [Right Arm] 02 Sat by Pulse Oximetry 97 95 95 Oxygen Delivery Method Room Air Room Air Room Air 10/30/23 22:27 Temperature 98.3 F Temperature Source Oral Pulse Rate 72 Pulse Rate [Right Radial] Respiratory Rate 20 Blood Pressure 122/68 Blood Pressure [Right Arm] Blood Pressure Mean Blood Pressure Mean [Right Arm] Blood Pressure Source Automatic Cuff Blood Pressure Source [Right Arm] Blood Pressure Position Sitting Blood Pressure Position [Right Arm] 02 Sat by Pulse Oximetry Oxygen Delivery Method Room Air Lab Data Lab results reviewed: Yes I reviewed the patient's lab results. Lab Results 10/30/23 17:05: WBC 10.4, RBC 4.29 L, Hgb 12.8 L, Hct 39.7 L, MCV 92.4, MCH 29.7, MCHC 32.2, RDW 17.3, Plt Count 24 L*, MPV 8.3, Neut % (Auto) 43.2, Lymph % (Auto) 25.9, [place] % (Auto) 17.9 H, Eos % (Auto) 12.4 H, Baso % (Auto) 0.6, Neut # (Auto) 4.5, Lymph # (Auto) 2.7, [place] # (Auto) 1.9 H, Eos # (Auto) 1.3 H, Baso # (Auto) 0.1, Sodium 139, Potassium 4.5, Chloride 103, Carbon Dioxide 30, Anion Gap 10.5, BUN 23 H, Creatinine 1.10, Estimated Creat Clear 57, Estimated GFR 66, Est GFR ( Amer) 80, Glucose 110 H, Calcium 9.4, Total Bilirubin 0.3, AST 29, ALT 16, Alkaline Phosphatase 104, Troponin I < 0.01, Total Protein 7.3 D, Albumin 4.0, Globulin 3.3 H, Albumin/Globulin Ratio 1.2, Salicylates < 1.0 L, A cetaminophen < 10 L, Plasma/Serum Alcohol < 10 10/30/23 19:30: Urine Color Yellow, Urine Appearance Clear, Urine pH 7.0, Ur Specific [place] 1.010, Urine Protein Negative, Urine Glucose (UA) Negative, Urine Ketones Negative, Urine Blood Negative, Urine Nitrate Negative, Urine Bilirubin Negative, Urine Urobilinogen 0.2, Ur Leukocyte Esterase Negative, Urine RBC None, Urine WBC Occasional, Ur Squamous Epith Cells Occasional, Urine Bacteria None, Urine Opiates Screen Negative, Urine Methadone Screen Negative, Ur Barbituates Screen Negative, Ur Phencyclidine Scrn Negative, Ur Amphetamines Screen Negative, U Benzodiazepines Scrn Negative, Urine Cocaine Screen Negative, U Marijuana (THC) Screen Negative 10/30/23 20:15: Troponin I < 0.01 10/30/23 17:05 10/30/23 17:05 Orders (Tests/Meds): ED MEDICATIONS Discontinued Medications Generic Name Dose Route Start Last Admin Trade Name Maryan PRN Reason Stop Dose Admin Iopamidol 160 ml 10/30/23 17:54 10/30/23 17:58 Iopamidol-370 (76%);100ml Bottle IV 10/30/23 17:55 160 ml ONCE ONE Administration Sodium Chloride 10 ml 10/30/23 17:54 10/30/23 17:58 Sodium Chloride 0.9% 10ml Syr (Rad Only) IV 10/30/23 17:55 10 ml ONCE ONE Administration Sodium Chloride 80 ml 10/30/23 17:54 10/30/23 17:58 0.9 % Sodium Chloride 50 Ml Vial IV 10/30/23 17:55 80 ml ONCE ONE Administration ORDERS Category Date Time Status CT angio chest PE protocol Stat Cat Scan 10/30/23 17:[address] angio head Stat Cat Scan 10/30/23 17:[address] angio neck Stat Cat Scan 10/30/23 17:[address] cervical spine wo con Stat Cat Scan 10/30/23 16:[address] head/brain wo con Stat Cat Scan 10/30/23 16:53 Completed XR chest portable Stat Exams 10/30/23 16:53 Completed Acetaminophen Stat Lab 10/30/23 17:05 Completed CBC w/Auto Diff [Complete Blood Count Auto Diff] Stat Lab 10/30/23 17:05 Completed Comprehensive Metabolic Panel Stat Lab 10/30/23 17:05 Completed Drug Screen,Urine Stat Lab 10/30/23 19:30 Completed Ethyl Alcohol Stat Lab 10/30/23 17:05 Completed Salicylate Stat Lab 10/30/23 17:05 Completed Troponin I Q3H Lab 10/30/23 20:15 Completed Troponin I Stat Lab 10/30/23 17:05 Completed Urinalysis and Microscopic Stat Lab 10/30/23 19:30 Completed ECG Data Tracing #1: I reviewed this ECG and interpreted as documented below: Normal sinus rhythm with a ventricular rate of 95 bpm. Interventricular conduction delay noted. No acute ST changes concerning for ischemia. ECG initial impression date: 10/30/23 ECG initial impression time: 17:00 Medical Decision Narrative: In summary, this patient is a 68-year-old male presenting to the Emergency Department for evaluation of altered mental status after being found stumbling around town and then reportedly unconscious. Differential diagnoses considered include but are not limited to intoxication, overdose, medication adverse reaction, PE, ACS, CVA. Ruling out the most morbid conditions drove assessment. It should be noted patient's history includes extensive psychiatric history as well as CAD, hypertensive heart disease which are likely not at goal therapy. This complicates all aspects of care by increasing patient's risk for morbidity. I reviewed patient's past medical records and noted multiple previous evaluations as per HPI. On exam, the patient is alert and oriented and is at his baseline with reassuring vital signs and cardiac telemetry. He is requesting food, rest, and TV. Ultimately given this questionable syncopal type episode, as well as difficulty obtaining history from the patient given his extensive psychiatric history, decision was made to order CT scan of the head, C-spine, and CTAs of the head, neck, and chest. Tox, metabolic, and cardiac workup were also ordered on lab evaluation. EKG was obtained and is reassuring. I independently interpreted CT scans prior to the radiologist read and noted no obvious aortic pathology, no obvious pulmonary embolism, and no obvious intracranial hemorrhage or space-occupying lesion. Please see their read for final interpretation. Labs were obtained that demonstrated thrombocytopenia, which is chronic on lab review. Patient has no notable sources of bleeding on exam or imaging. This could be related to his chronic psychiatric medication use, including clozapine. Labs are otherwise reassuring. On multiple subsequent reassessments, the patient is resting comfortably. He is ambulatory and at his baseline. He denies any concerns or complaints. He has reassuring vitals. Given this, feel that he is appropriate for discharge. Transfer was arranged back to [place] and he was discharged in stable condition with strict return precautions Critical Care Critical Care Time Critical Care Time: No
[2023-10-30 19:32] LABS: Microscopic, Urine URINE MICROSCOPIC (MICROSCOPIC)
[2023-10-30 19:34] LABS: Appearance,Urine CLEAR (Clear); Bilirubin,Urine Negative (Negative); Blood, Urine Negative (Negative); Color,Urine YELLOW (Yellow); Glucose,Urine (UA) Negative (Negative); Ketones,Urine Negative (Negative); Leukocyte Esterase,Urine Negative (Negative); Nitrate,Urine Negative (Negative); Protein,Urine Negative (Negative); Urobilinogen,Urine 0.2 EU/dl (0.2)
[2023-10-30 19:44] LABS: Squamous Epithelial Cell,Urine Occasional #/hpf (0-5); WBC,Urine Occasional #/hpf (0-3)
[2023-10-30 19:45] LABS: Amphetamine/Metha Screen,Urine Negative ng/ml (<1000)
[2023-10-30 19:46] LABS: Barbiturates Screen,Urine Negative ng/ml (<200)
[2023-10-30 19:47] LABS: Benzodiazepines Screen,Urine Negative ng/ml (<200); Cannabinoid Screen,Urine Negative ng/ml (<50)
[2023-10-30 19:48] LABS: Cocaine Screen,Urine Negative ng/ml (<300)
[2023-10-30 19:49] LABS: Methadone Screen,Urine Negative ng/ml (<300); Opiate Screen,Urine Negative ng/ml (<300)
[2023-10-30 19:50] LABS: Phencyclidine Screen,Urine Negative ng/ml (<25)
--- NOTE | 2023-10-30 20:17 | PC.NURSE ---
contacted rad for head cta read. they will advise us further
[2023-10-30 20:52] LABS: Troponin I < 0.01 ng/ml (0.00-0.034)
--- NOTE | 2023-10-30 22:12 | PC.NURSE ---
[facility] notified of need for transport
--- NOTE | 2023-10-30 22:13 | PC.NURSE ---
pt given chicken salad rhonda and 2 starrys
== END 2023-10-30 22:28 | disposition home or self-care (01) ==
PROVIDERS: Emergency Provider Emergency Medicine; PCP Nurse Practitioner Acute Care
DX: D69.6 Thrombocytopenia, unspecified (principal); R53.83 Other fatigue; F20.9 Schizophrenia, unspecified; E03.9 Hypothyroidism, unspecified; I11.9 Hypertensive heart disease without heart failure; I25.10 Atherosclerotic heart disease of native coronary artery without angina pectoris; F17.210 Nicotine dependence, cigarettes, uncomplicated
CPT/HCPCS: 36415; 70450; 70496; 70498; 71045; 71275; 72125; 80053; 80307; 80329; 81001; 84484; 85025; 93005; 99285; G0480; Q9967